=== PATIENT | female | born 1960 | race Caucasian/White ===

== ENCOUNTER 2024-06-29 12:25 | Inpatient (IN) | payer BC ==
[2024-06-29 15:24] LABS: Basophils # (A) 0.1 k/uL (0-0.2); Basophils % (A) 1 %; Eosinophils # (A) 0.1 k/uL (0-0.7); Eosinophils % (A) 1 %; HCT 42.2 % (34.0-46.0); HGB 14.2 gm/dL (11.4-16.0); Lymphocytes # (A) 3.6 k/uL (1.0-4.8); Lymphocytes % (A) 36 %; MCH 28.1 pg (25.0-35.0); MCHC 33.6 g/dL (31.0-37.0); MCV 83.6 fL (80.0-100.0); Mean Platelet Volume 6.7; Monocytes # (A) 0.4 k/uL (0-1.0); Monocytes % (A) 4 %; Neutrophils # (A) 5.7 k/uL (1.3-7.7); Neutrophils % (A) 57 %; Platelet Count 376 k/uL (150-450); RBC 5.05 m/uL (3.80-5.40); RDW 12.1 % (11.5-15.5); WBC 9.9 k/uL (3.8-10.6)
[2024-06-29 15:30] LABS: INR 0.9 (<1.2); Partial Thromboplastin Time 25.7 sec (22.0-30.0); Prothrombin Time 10.5 sec (10.0-12.5)
--- NOTE | 2024-06-29 15:30 | P.GSCN ---
History of Present Illness Consult date: 06/29/24 Reason for Consult: Coronary artery disease, evaluate for CABG Requesting physician: Pete Parker History of present illness: This is a 64-year-old female who follows outpatient with Dr. 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 She has a previous medical history of insulin-dependent diabetes, hyperlipidemia, previous COVID, lifelong non-smoker, and family history of premature coronary artery disease with father having CABG at 40 years old. Apparently she has had intermittent chest pressure for the last couple of months. She saw her warehouse analyst and, per the patient, was told that it was likely due to her changes in medications. Yesterday she also had some shortness of breath, she presented to [facility] for evaluation and treatment. Troponins were elevated and she was ruled in for non-STEMI. She did have an echocardiogram completed demonstrating low normal left ventricular systolic function with EF 50%, mild mitral and tricuspid regurgitation as well as inferobasal hypokinesis. She was recommended to go undergo heart catheterization which was completed today by Dr. Burroughs demonstrating proximal LAD stenosis 90%, proximal circumflex stenosis 70% with 90% stenosis after the OM1 and 100% stenosis after the OM 2, proximal RCA stenosis 80%, mid RCA stenosis 90%, distal RCA stenosis 100%. Due to these findings the patient was transferred to [facility] for cardiothoracic surgery consultation. Review of Systems Review of systems was completed and was negative except as noted - Cardiovascular Reports as per HPI, Reports chest pain, Reports shortness of breath Past Medical History Past Medical History: Coronary Artery Disease (CAD), Diabetes Mellitus, Hyperlipidemia Additional Past Medical History / Comment(s): COVID in the past, vaccinated History of Any Multi-Drug Resistant Organisms: None Reported Additional Past Surgical History / Comment(s): Colonoscopy Past Anesthesia/Blood Transfusion Reactions: No Reported Reaction Past Psychological History: No Psychological Hx Reported Smoking Status: Never smoker Past Alcohol Use History: None Reported Past Drug Use History: None Reported - Past Family History Father Family Medical History: Coronary Artery Disease (CAD) Additional Family Medical History / Comment(s): Father had CABG at 40 years old, from kidney failure Mother Family Medical History: Diabetes Mellitus Medications and Allergies Allergies Allergy/AdvReac Type Severity Reaction Status Date / Time Penicillins Allergy Rash/Hives Verified 06/29/24 14:01 Surgical - Exam Vital Signs Temp Pulse Resp BP Pulse Ox 98.4 F 71 16 117/68 95 06/29/24 13:57 06/29/24 13:57 06/29/24 13:57 06/29/24 13:57 06/29/24 13:57 CONSTITUTIONAL: Awake and alert, appears comfortable, cooperative, well- developed, well-nourished, no pain, no acute distress EYES: Pupils equal, round, reactive to light, normal ocular movement ENT: Moist mucous membranes without oral lesions present NECK: No masses, no bruits, trachea midline RESPIRATORY: Lungs sounds clear to auscultation bilaterally. Respirations even, nonlabored. Currently on room air. Strong cough. No chest wall deformities. No clubbing or cyanosis present CARDIOVASCULAR: S1, S2 present. Regular rate and rhythm, sinus rhythm on telemetry. Palpable peripheral pulses bilaterally. No edema present. No calf pain or tenderness noted. No significant lower extremity varicosities noted GASTROINTESTINAL: Abdomen soft, nontender, nondistended without masses or organomegaly noted. There is no rebound or guarding present. Active bowel sounds present 4 quadrants. GENITOURINARY: Deferred INTEGUMENTARY: Skin is warm and dry, right radial heart catheterization site clean without drainage NEUROLOGIC: Cranial nerves II through XII intact, normal coordination, no obvious motor or sensory deficits, speech is normal MUSKULOSKELETAL: Able to move all extremities, strength equal bilaterally, normal posture PSYCHIATRIC: Alert and oriented to person place and time, appropriate affect, intact judgment and insight CLINICAL FRAILTY SCORE 3 Results - Imaging Chest x-ray: image reviewed Additional studies: Heart catheterization, echocardiogram, chest x-ray completed at [facility] reviewed Assessment and Plan Assessment: Triple-vessel coronary artery disease, non-STEMI this admission Chest pain, shortness of breath secondary to above History of insulin-dependent diabetes Hyperlipidemia Lifelong non-smoker Family history of premature coronary artery disease, father had CABG at 40 years old Plan: The patient was seen and examined sitting up in bed on 6 N. was present. Currently denies any chest pain or shortness of breath. Chart/diagnostics reviewed. The usual perioperative course of open-heart surgery was discussed in detail with the patient and her , risks and benefits were reviewed, all questions were answered. The patient is willing to consider surgery. Preoperative testing will be initiated, once completed we will calculate STS risk score and discuss with the patient. The case will be discussed in great detail with Dr. Samayoa. Recommend maximizing medical therapy with aspirin, statin, beta-marcia therapy. Increase activity as tolerated, will perform 5 m walk test. Discussed the need for diabetes and cholesterol control as part of her cardiac risk factors. More recommendations to follow once Dr. Samayoa has had the opportunity to review her heart catheterization films. Medical management of other comorbidities per internal medicine, cardiology. Thank you Dr. Parker for this consult, we will continue to follow along with you and make further recommendations as appropriate. I have personally seen and examined the patient, performed the documentation and the assessment and plan as written. Number of minutes spent on the visit: 30. VERONA FrancoisC
[2024-06-29] MEDS: HEPARIN SOD,PORK IN 0.45% NACL 25,000 UNIT in 0.45% NACL 1 250ML.BAG IV SCH (15:51)
[2024-06-29] MEDS ORDERED: DEXTROSE 50% SYRINGE 50 ML IVP PRN ×2 (16:04)
--- NOTE | 2024-06-29 17:18 | US ---
EXAMINATION TYPE: US vein mapping BILAT DATE OF EXAM: 06/29/2024 5:00 PM COMPARISON: NONE CLINICAL INDICATION: Female, 64 years old with history of preop cardiac surgery; , Preop- Cardiac Yahaira branden TECHNIQUE: Grayscale and color Doppler imaging of the lower extremity venous system. SIDE PERFORMED: Bilateral FINDINGS: DUPLEX FINDINGS: Greater Saphenous: Color flow seen Measurements in mm: Right Greater Saphenous: Groin: 7.0x6.2mm High Thigh: 4.0x3.5mm Mid Thigh: 4.4x3.1mm Above Knee: 3.0x3.3mm Knee: 4.8x3.7mm Below Knee: 4.1x3.1mm Mid Calf: 2.4x2.5mm At Ankle: 2.3x1.6mm Left Greater Saphenous: Groin: 8.2x5.7mm High Thigh: 7.0x5.5mm Mid Thigh: 5.2x3.6mm Above Knee: 3.6x2.6mm Knee: 3.8x3.3mm Below Knee: 2.7x2.7mm Mid Calf: 2.5x2.2mm At Ankle: 2.4x1.7mm IMPRESSION: 1. No evidence for occlusion. 2. GSV measurements listed above. 3. Performing surgeon to determine viability as conduit. [facility], , 06/29/2024 5:16 PM
--- NOTE | 2024-06-29 17:18 | US ---
EXAMINATION TYPE: Pre-Operative Non-Invasive Evaluation of the hand for Potential Radial Artery Harvcabrera walker, Measurements only DATE OF EXAM: 06/29/2024 5:00 PM CLINICAL INDICATION: Female, 64 years old with history of measurements only; , Preop- Cardiac Surgery TECHNIQUE:Grayscale and color Doppler imaging of the radial artery(s) SIDE PERFORMED: Left FINDINGS: Dominant hand: Left Duplex Findings: Radial Artery: Color flow seen Measurements in mm, transverse view: Left Radial: Proximal: 2.5 x 2.5 mm Mid: 1.9 x 1.9 mm Distal: 2.0 x 2.0 mm IMPRESSION: No evidence for occlusion. Measurements as described above. [facility], , 06/29/2024 5:16 PM
--- NOTE | 2024-06-29 17:19 | US ---
EXAMINATION TYPE: US carotid duplex BILAT DATE OF EXAM: 06/29/2024 COMPARISON: NONE CLINICAL INDICATION: Female, 64 years old with history of preop cardiac surgery; Hyperlipidemia, diab etes Additional History: .... TECHNIQUE: Grayscale, color Doppler and spectral Doppler evaluation of the bilateral carotid systems and vertebral arteries. Indirect Doppler criteria was utilized. FINDINGS: EXAM MEASUREMENTS: RIGHT: Peak Systolic Velocity (PSV) cm/sec ----- Right CCA: 72.1 ----- Right ICA: 69.7 ----- Right ECA: 96.9 ICA/CCA ratio: 1.0 RIGHT: End Diastole cm/sec ----- Right CCA: 20.6 ----- Right ICA: 16.5 ----- Right ECA: 10.2 LEFT: Peak Systolic Velocity (PSV) cm/sec ----- Left CCA: 99.1 ----- Left ICA: 90.8 ----- Left ECA: 83.1 ICA/CCA ratio: 0.9 LEFT: End Diastole cm/sec ----- Left CCA: 21.5 ----- Left ICA: 28.1 ----- Left ECA: 12.8 VERTEBRALS (direction of flow): Right Vertebral: Antegrade Left Vertebral: Antegrade Rhythm: Normal TRIGONOMETRY TEACHER NOTES: No elevated velocities. Plaque seen within bilateral bulbs. Color Doppler imaging shows patency with blood flow throughout the carotid artery. IMPRESSION: Right: No hemodynamically significant stenosis. Left: No hemodynamically significant stenosis. Criteria for Assigning % of Stenosis / Diameter reduction (Estimation based on the indirect measurements of the internal carotid artery velocities (ICA PSV). 1. Normal (no stenosis)=ICA PSV < 125 cm/s: ratio < 2.0: ICA EDV<40 cm/s. 2. Less than 50% stenosis=ICA PSV < 125 cm/s: ratio < 2.0: ICA EDV<40 cm/s. 3. 50 to 69% stenosis=ICA PSV of 125 to 230 cm/s: ration 2.0 ? 4.0: ICA EDV 40-100 cm/s. 4. Greater than 70% stenosis to near occlusion= ICA PSV > 230 cm/s: ratio > 4.0: ICA EDV > 100 cm/s. 5. Near occlusion= ICA PSV velocities may be low or undetectable: variable ratio and ICA EDV. 6. Total occlusion=unable to detect flow. [facility], , 06/29/2024 5:17 PM
[2024-06-29] MEDS: INSULIN ASPART (NovoLOG) 100 UNIT/ML VIAL SQ SCH (17:31)
[2024-06-29 17:32] LABS: Glucose,Whole Blood 126 mg/dL (70-110)
[2024-06-29 20:15] LABS: Glucose,Whole Blood 126 mg/dL (70-110)
[2024-06-29 20:54] LABS: Hepatitis A Antibody IgM Nonreactive (Nonreactive); Hepatitis B Core IgM Nonreactive (Nonreactive); Hepatitis B Surface Antigen Nonreactive (Nonreactive); Hepatitis C IgG Antibody Nonreactive (Nonreactive)
[2024-06-29] MEDS: METOPROLOL TARTRATE 25 MG TAB PO SCH (20:58)
[2024-06-29] MEDS: ATORVASTATIN 80 MG TAB PO SCH (20:58)
[2024-06-29] MEDS ORDERED: ATORVASTATIN 40 MG TAB PO SCH (21:00)
--- NOTE | 2024-06-29 22:05 | CT ---
EXAMINATION TYPE: CT chest wo con DATE OF EXAM: 06/29/2024 9:51 PM COMPARISON: None CLINICAL INDICATION: Female, 64 years old with history of eval aorta for clampability; PHH, Eval aort a for clampability. Surgical planning. TECHNIQUE: Multiple axial images were obtained through the chest. Sagittal and coronal reformats were created for review. MIP was performed on a separate workstation. Contrast used: mL of (None if empty) Oral contrast used: (None if empty) CT DLP: 320.3 mGycm, Automated exposure control for dose reduction was used. FINDINGS: LUNGS/ PLEURA: No focal consolidation, pneumothorax or pleural effusion. AIRWAY: Patent and unremarkable. HEART: Size within normal limits minimal coronary artery calcifications. MEDIASTINUM: No gross evidence of adenopathy. VASCULATURE: No aortic aneurysm. Minimal calcified plaque is noted on the inferior aspect of aortic arch. MUSCULOSKELETAL: Mild disc degeneration changes are present throughout the thoracolumbar spine second peter to osteophyte formation and facet joint arthropathy. SOFT TISSUES/LYMPH NODES: Unremarkable. LOWER NECK: No significant findings. UPPER ABDOMEN: No significant findings. IMPRESSION: Minimal aortic arch calcification/plaque noted. No acute thoracic process. No evidence fo r aneurysm no evidence for intracranial hematoma. [facility], , 06/29/2024 10:03 PM
[2024-06-30] MEDS: HEPARIN SODIUM 1,000 UN/ML (10ML VL) IV PRN (01:01)
[2024-06-30 03:06] LABS: Chol/HDL Ratio 6.15 Ratio; LDL Cholesterol,Calculated 124.7 mg/dL (0.0-131.0)
[2024-06-30 05:47] LABS: Glucose,Whole Blood 153 mg/dL (70-110)
[2024-06-30 07:44] LABS: Partial Thromboplastin Time 47.4 sec (22.0-30.0); Prothrombin Time 10.9 sec (10.0-12.5)
[2024-06-30] MEDS: ASPIRIN 81 MG PO SCH (08:35)
[2024-06-30] MEDS: ISOSORBIDE MONONITRATE ER 30 MG TAB.ER.24H PO SCH (08:35)
--- NOTE | 2024-06-30 10:35 | P.PN ---
Subjective Progress Note Date: 06/30/24 Principal diagnosis: Triple-vessel coronary artery disease, non-STEMI this admission. History of insulin-dependent diabetes uncontrolled with hyperglycemia, hyperlipidemia, lifelong non-smoker, family history of premature coronary artery disease, father had CABG at 40 years old The patient was seen and examined this morning with Dr. Samayoa sitting up in bed on 6 N. in no acute distress. Remains in sinus rhythm, hemodynamically stable. Denies any chest pain or shortness of breath at this time. We did discuss our recommendation for open heart surgery, timing to be determined. All patient's questions were answered. STS risk score was discussed with patient, she is con sidered to be low risk. No other new concerns. Objective - Vital Signs Vital signs: Vital Signs Temp 98.8 F 06/30/24 07:03 Pulse 64 06/30/24 07:03 Resp 16 06/30/24 07:03 BP 129/77 06/30/24 07:03 Pulse Ox 94 L 06/30/24 07:03 FiO2 Intake & Output 06/29/24 06/30/24 06/30/24 18:59 06:59 18:59 Intake Total 118 84.753 118 Balance 118 84.753 118 Weight 78.471 kg Intake: Intake, IV Titration 84.753 Amount Heparin Sod,Pork in 0.45% 84.753 NaCl 25,000 unit In 0.45 % NaCl 1 250ml.bag @ 12 UNITS/KG/HR 9.417 mls/hr IV .Q24H TAYLA Rx#: [id number] Oral 118 118 Other: # Voids 2 - Exam CONSTITUTIONAL: Appears comfortable, cooperative, no acute distress RESPIRATORY: Lungs sounds diminished bilaterally. Respirations even, nonlabored. Currently on room air with oxygen saturation 98%. Able to achieve 1750 mL on incentive spirometry. Strong cough. CARDIOVASCULAR: S1, S2 present. Regular rate and rhythm, sinus rhythm on telemetry. Palpable peripheral pulses bilaterally. No edema present. No calf pain or tenderness noted GASTROINTESTINAL: Abdomen soft, nontender, nondistended. Active bowel sounds present 4 quadrants. Tolerating diet GENITOURINARY: Continues to void INTEGUMENTARY: Skin is warm and dry NEUROLOGIC: Cranial nerves II through XII intact MUSKULOSKELETAL: Able to move all extremities, strength equal bilaterally, gait normal PSYCHIATRIC: Alert and oriented to person place and time, appropriate affect, intact judgment and insight - Allied health notes Allied health notes reviewed: nursing - Labs CBC & Chem 7: 06/29/24 15:04 Labs: Abnormal Lab Results - Last 24 Hours (Table) 06/29/24 06/29/24 06/29/24 Range/Units 15:04 15:04 17:30 APTT (22.0-30.0) sec POC Glucose (mg/dL) 126 H (70-110) mg/dL Hemoglobin A1c 9.1 H (<=6.0) % Triglycerides 239.00 H (0.00-149.00) mg/dL Cholesterol 206.00 H (0.00-200.00) mg/dL VLDL Cholesterol, Calc 47.80 H (5.00-40.00) mg/dL HDL Cholesterol 33.50 L (40.00-60.00) mg/dL 06/29/24 06/29/24 06/29/24 Range/Units 20:14 23:38 23:38 APTT 33.0 H (22.0-30.0) sec POC Glucose (mg/dL) 126 H (70-110) mg/dL Hemoglobin A1c 9.8 H (<=6.0) % Triglycerides (0.00-149.00) mg/dL Cholesterol (0.00-200.00) mg/dL VLDL Cholesterol, Calc (5.00-40.00) mg/dL HDL Cholesterol (40.00-60.00) mg/dL 06/30/24 06/30/24 Range/Units 05:45 06:55 APTT 47.4 H (22.0-30.0) sec POC Glucose (mg/dL) 153 H (70-110) mg/dL Hemoglobin A1c (<=6.0) % Triglycerides (0.00-149.00) mg/dL Cholesterol (0.00-200.00) mg/dL VLDL Cholesterol, Calc (5.00-40.00) mg/dL HDL Cholesterol (40.00-60.00) mg/dL - Imaging and Cardiology CT scan - chest: report reviewed, image reviewed Carotid Dopplers, bedside spirometry, radial artery and lower extremity vein mapping reviewed Assessment and Plan Assessment: Triple-vessel coronary artery disease, non-STEMI this admission Chest pain, shortness of breath secondary to above History of insulin-dependent diabetes with uncontrolled hyperglycemia, hemoglob in A1c 9.8% Hyperlipidemia, cholesterol 206, LDL 124, triglycerides 239 Lifelong non-smoker, preoperative FEV1 90% of predicted Family history of premature coronary artery disease, father had CABG at 40 years old Plan: Continue to maximize medical therapy with aspirin, statin, beta-marcia Increase activity as tolerated Our recommendations are for CABG, timing to be determined Patient needs better control over her blood sugars Reinforce preoperative teaching Medical management of other comorbidities per internal medicine, cardiology More recommendations to follow
[2024-06-30] MEDS ORDERED: ATORVASTATIN 80 MG TAB PO SCH (11:30)
[2024-06-30] MEDS ORDERED: NON FORMULARY DRUG (Aspirin Ec 81 MG Tablet) PO SCH (11:30)
--- NOTE | 2024-06-30 11:35 | CA ---
Transthoracic Echo Report Name: BOBBY CONSTANTINO Age: 64 Gender: F : 1960 Exam Date: 06/30/2024 11:00 Exam Location: [facility] Ht (in): 64 Wt (lb): 173 Ordering Physician: Elis Nguyễn Attending/Referring Phys: [id number], Gopi Folder Inspector Alem Gutierrez RDCS Procedure CPT: Indications: eval valves, LV Cardiac Hx: Technical Quality: Good Contrast 1: Total Dose (mL): Contrast 2: Total Dose (mL): MEASUREMENTS (Male / Female) Normal Values 2D ECHO LV Diastolic Diameter PLAX 5.0 cm 4.2 - 5.9 / 3.9 - 5.3 cm LV Systolic Diameter PLAX 3.3 cm IVS Diastolic Thickness 0.7 cm 0.6 - 1.0 / 0.6 - 0.9 cm LVPW Diastolic Thickness 0.9 cm 0.6 - 1.0 / 0.6 - 0.9 cm LV Relative Wall Thickness 0.3 LVOT Diameter 1.9 cm LV Diastolic Volume MOD BP 111.7 cm??? 67 - 155 / 56 - 104 cm??? LV Systolic Volume MOD BP 47.8 cm??? 22 - 58 / 19 - 49 cm??? LV Ejection Fraction MOD BP 57.2 % >= 55 % LV Cardiac Index MOD BP 2111.7 cm???/min???m??? LV Diastolic Volume MOD 4C 114.5 cm??? LV Systolic Volume MOD 4C 48.8 cm??? LV Ejection Fraction MOD 4C 57.4 % LV Cardiac Index MOD 4C 2168.5 cm???/min???m??? LV Diastolic Length 4C 7.8 cm LV Systolic Length 4C 7.4 cm LV Diastolic Volume MOD 2C 106.3 cm??? LV Systolic Volume MOD 2C 40.7 cm??? LV Ejection Fraction MOD 2C 61.7 % LV Cardiac Index MOD 2C 2167.2 cm???/min???m??? LV Diastolic Length 2C 7.6 cm LV Systolic Length 2C 6.4 cm LA Volume 48.3 cm??? 18 - 58 / 22 - 52 cm??? LA Volume Index 25.3 cm???/m??? 16 - 28 cm???/m??? Ascending Aorta Diameter 3.2 cm DOPPLER AV Peak Velocity 147.6 cm/s AV Peak Gradient 8.7 mmHg AV Mean Velocity 97.6 cm/s AV Mean Gradient 4.3 mmHg AV Velocity Time Integral 30.2 cm LVOT Peak Velocity 123.7 cm/s LVOT Peak Gradient 6.1 mmHg LVOT Velocity Time Integral 23.0 cm LVOT Stroke Volume 63.2 cm??? LVOT Stroke Volume Index 34.3 ml/m??? LVOT Cardiac Index 2086.5 cm???/min???m??? AV Area Cont Eq vti 2.1 cm??? AV Area Cont Eq pk 2.3 cm??? MV Peak Velocity 112.6 cm/s MV Peak Gradient 5.1 mmHg MV Mean Velocity 72.2 cm/s MV Mean Gradient 2.3 mmHg MV Velocity Time Integral 38.7 cm MV Area PHT 3.3 cm??? Mitral E Point Velocity 77.8 cm/s Mitral A Point Velocity 93.9 cm/s Mitral E to A Ratio 0.8 MV Deceleration Time 227.1 ms PV Peak Velocity 85.5 cm/s PV Peak Gradient 2.9 mmHg FINDINGS Left Ventricle Left ventricular ejection fraction is estimated at 55-60 %. Mildly increased left ventricular diastolic volume. Left ventricular wall thickness normal. No obvious regional wall motion abnormalities. Right Ventricle Normal right ventricular size and function. Unable to estimate the right ventricular systolic pressure. Right Atrium Normal right atrial size. Left Atrium Normal left atrial size. Mitral Valve Structurally normal mitral valve. No evidence for mitral valve prolapse. No mitral stenosis. Trace to mild mitral regurgitation. Aortic Valve Trileaflet aortic valve. No aortic valve stenosis or regurgitation. Tricuspid Valve Structurally normal tricuspid valve. No tricuspid stenosis, regurgitation or prolapse. Pulmonic Valve Structurally normal pulmonic valve. No pulmonic stenosis. No pulmonic regurgitation. Pericardium No pericardial effusion. Aorta Normal size aortic root and proximal ascending aorta. CONCLUSIONS Normal LV function Previewed by: Dr. Joseph Ozuna MD (Electronically Signed) Final Date: 30 June 2024 11:34
[2024-06-30 12:16] LABS: Glucose,Whole Blood 132 mg/dL (70-110)
--- NOTE | 2024-06-30 12:29 | P.PN ---
Subjective Progress Note Date: 06/30/24 This is a 64-year-old female patient with past medical history of insulin- dependent diabetes, hyperlipidemia, family history of premature coronary artery disease with father having CABG at 40 years of age. Patient initially presented to [facility] with intermittent chest pain for couple of months. She subsequently developed shortness of breath and presented to [facility] for evaluation. Patient was diagnosed with a NSTEMI. She had an echocardiogram that revealed EF of 50%, mild mitral regurgitation and mild tricuspid regurgitation, inferobasal hypokinesis. She underwent a cardiac catheterization with Dr. Burroughs which revealed proximal LAD stenosis of 90%, proximal circumflex stenosis 70 to 90% after the OM1 and 100% stenosis after the OM 2, proximal RCA stenosis 80%, mid RCA stenosis 90%, distal RCA stenosis 100%. Patient was then transferred to [facility] in order to obtain cardiothoracic surgery consultation. Patient has been seen by the cardiothora cic team. No complaints of chest pain this morning. Patient has been maintained on a heparin drip. Blood pressure 129/77, heart rate 64, pulse ox 94% on room air. Hemoglobin A1c 9.8, triglycerides 239, cholesterol 206, LDL 124, TSH 1.9. Stool for occult blood negative. Hepatitis panel negative. Physical examination: Gen: This is a 64-year-old female in no acute distress VS: reviewed HEENT: Head is atraumatic, normocephalic. Pupils equal, round. Sclerae is anicteric. NECK: Supple. No JVD. LUNGS: Clear to auscultation. No wheezes or rhonchi. No intercostal retractions. HEART: Regular rate and rhythm. No murmur. ABDOMEN: Soft No tenderness. EXTREMITIES: No pedal edema. No calf tenderness. NEUROLOGICAL: Patient is awake, alert and oriented x3. Assessment: NSTEMI Triple-vessel coronary artery disease Insulin-dependent diabetes mellitus Hyperlipidemia Family history of premature coronary artery disease Plan: Continue current cardiac medications: Aspirin 81 mg daily, atorvastatin 80 mg at bedtime, Lopressor 25 mg twice daily. Continue patient on heparin drip Start patient on Imdur 30 mg daily Cardiothoracic team evaluation Further recommendations to follow based upon clinical course Nurse practitioner note has been reviewed, I agree with documented findings and plan of care. Patient was seen and examined. Objective - Vital Signs Vital signs: Vital Signs Temp 98.8 F 06/30/24 07:03 Pulse 64 06/30/24 07:03 Resp 16 06/30/24 07:03 BP 129/77 06/30/24 07:03 Pulse Ox 94 L 06/30/24 07:03 FiO2 Intake & Output 06/29/24 06/30/24 06/30/24 18:59 06:59 18:59 Intake Total 118 84.753 Balance 118 84.753 Weight 78.471 kg Intake: Intake, IV Titration 84.753 Amount Heparin Sod,Pork in 0.45% 84.753 NaCl 25,000 unit In 0.45 % NaCl 1 250ml.bag @ 12 UNITS/KG/HR 9.417 mls/hr IV .Q24H TAYLA Rx#: [id number] Oral 118 Other: # Voids 2 - Labs CBC & Chem 7: 06/29/24 15:04 Labs: Abnormal Lab Results - Last 24 Hours (Table) 06/29/24 06/29/24 06/29/24 Range/Units 15:04 15:04 17:30 APTT (22.0-30.0) sec POC Glucose (mg/dL) 126 H (70-110) mg/dL Hemoglobin A1c 9.1 H (<=6.0) % Triglycerides 239.00 H (0.00-149.00) mg/dL Cholesterol 206.00 H (0.00-200.00) mg/dL VLDL Cholesterol, Calc 47.80 H (5.00-40.00) mg/dL HDL Cholesterol 33.50 L (40.00-60.00) mg/dL 06/29/24 06/29/24 06/30/24 Range/Units 20:14 23:38 05:45 APTT 33.0 H (22.0-30.0) sec POC Glucose (mg/dL) 126 H 153 H (70-110) mg/dL Hemoglobin A1c (<=6.0) % Triglycerides (0.00-149.00) mg/dL Cholesterol (0.00-200.00) mg/dL VLDL Cholesterol, Calc (5.00-40.00) mg/dL HDL Cholesterol (40.00-60.00) mg/dL 06/30/24 Range/Units 06:55 APTT 47.4 H (22.0-30.0) sec POC Glucose (mg/dL) (70-110) mg/dL Hemoglobin A1c (<=6.0) % Triglycerides (0.00-149.00) mg/dL Cholesterol (0.00-200.00) mg/dL VLDL Cholesterol, Calc (5.00-40.00) mg/dL HDL Cholesterol (40.00-60.00) mg/dL
[2024-06-30 14:59] LABS: Basophils # (A) 0.04 X 10*3/uL (0.00-0.10); Basophils % (A) 0.4 %; Eosinophils # (A) 0.16 X 10*3/uL (0.04-0.35); Eosinophils % (A) 1.6 %; HCT 43.6 % (37.2-46.3); HGB 14.4 g/dL (12.0-15.0); Lymphocytes # (A) 3.61 X 10*3/uL (0.90-5.00); Lymphocytes % (A) 37.1 %; MCH 28.1 pg (27.0-32.0); MCV 85.2 FL (80.0-97.0); Mean Platelet Volume 9.9 FL (9.5-12.2); Monocytes # (A) 0.52 X 10*3/uL (0.20-1.00); Monocytes % (A) 5.3 %; NRBC Per 100 WBC 0 X 10*3/uL (0.00-0.01); Neutrophils # (A) 5.36 X 10*3/uL (1.80-7.70); Neutrophils % (A) 55.3 %; Platelet Count 403 X 10*3/uL (140-440); RBC 5.12 X 10*6/uL (4.10-5.20); RDW 12.4 % (11.5-14.5); WBC 9.72 X 10*3/uL (4.50-10.00)
[2024-06-30 18:08] LABS: Glucose,Whole Blood 187 mg/dL (70-110)
[2024-06-30 19:58] LABS: Glucose,Whole Blood 186 mg/dL (70-110)
[2024-06-30] MEDS: MUPIROCIN 2% OINT 22 GM TUBE NASAL SCH (20:01)
[2024-06-30] MEDS: INSULIN DETEMIR (LEVEMIR) 100 UNIT/ML SYR SQ SCH (21:55)
--- NOTE | 2024-07-01 06:10 | PN ---
PROGRESS NOTE DATE OF SERVICE: 06/30/2024 CHIEF COMPLAINT: NSTEMI. HISTORY OF PRESENT ILLNESS: This lady is doing well and stable. No pain. She is being scheduled for coronary artery bypass graft. PHYSICAL EXAMINATION: CHEST: Clear. CARDIAC: Normal. ABDOMEN: Soft, nontender. IMPRESSION: 1. Non ST elevation myocardial infarction. 2. Diabetes. PLAN: Await surgery. MMODL / IJN: [id number] /
[2024-07-01 06:16] LABS: Glucose,Whole Blood 137 mg/dL (70-110)
--- NOTE | 2024-07-01 08:54 | P.PN ---
Subjective Progress Note Date: 07/01/24 Principal diagnosis: Triple-vessel coronary artery disease, non-STEMI this admission. History of insulin-dependent diabetes uncontrolled with hyperglycemia, hyperlipidemia, lifelong non-smoker, family history of premature coronary artery disease, father had CABG at 40 years old The patient was seen and examined this morning sitting up in bed on 6 N. in no acute distress. Remains in sinus rhythm, hemodynamically stable. Denies any chest pain or shortness of breath at this time. Our plan is for off-pump CABG by Dr. Samayoa on July 04, this was discussed with the patient and she is in agreement. No other new concerns. Objective - Vital Signs Vital signs: Vital Signs Temp 98.3 F 07/01/24 07:08 Pulse 62 07/01/24 07:08 Resp 16 07/01/24 07:08 BP 128/68 07/01/24 07:08 Pulse Ox 97 07/01/24 07:08 FiO2 Intake & Output 06/30/24 07/01/24 07/01/24 18:59 06:59 18:59 Intake Total 252.395 189.692 Balance 252.395 189.692 Weight 78.471 kg Intake: Intake, IV Titration 134.395 189.692 Amount Heparin Sod,Pork in 0.45% 134.395 189.692 NaCl 25,000 unit In 0.45 % NaCl 1 250ml.bag @ 12 UNITS/KG/HR 9.417 mls/hr IV .Q24H [facility] Rx#: [id number] Oral 118 Other: # Voids 4 3 - Exam CONSTITUTIONAL: Appears comfortable, cooperative, no acute distress RESPIRATORY: Lungs sounds diminished bilaterally. Respirations even, nonlabored. Currently on room air with oxygen saturation 97%. Able to achieve 1750 mL on incentive spirometry. Strong cough. CARDIOVASCULAR: S1, S2 present. Regular rate and rhythm, sinus rhythm on telemetry. Palpable peripheral pulses bilaterally. No edema present. No calf pain or tenderness noted GASTROINTESTINAL: Abdomen soft, nontender, nondistended. Active bowel sounds present 4 quadrants. Tolerating diet GENITOURINARY: Continues to void INTEGUMENTARY: Skin is warm and dry NEUROLOGIC: Cranial nerves II through XII intact MUSKULOSKELETAL: Able to move all extremities, strength equal bilaterally, gait normal PSYCHIATRIC: Alert and oriented to person place and time, appropriate affect, intact judgment and insight - Allied health notes Allied health notes reviewed: nursing - Labs CBC & Chem 7: 06/30/24 06:55 Labs: Abnormal Lab Results - Last 24 Hours (Table) 06/29/24 06/30/24 06/30/24 Range/Units 23:38 12:12 18:07 APTT (22.0-30.0) sec POC Glucose (mg/dL) 132 H 187 H (70-110) mg/dL Hemoglobin A1c 9.8 H (<=6.0) % 06/30/24 07/01/24 07/01/24 Range/Units 19:57 05:22 06:14 APTT 46.1 H (22.0-30.0) sec POC Glucose (mg/dL) 186 H 137 H (70-110) mg/dL Hemoglobin A1c (<=6.0) % Assessment and Plan Assessment: Triple-vessel coronary artery disease, non-STEMI this admission Chest pain, shortness of breath secondary to above History of insulin-dependent diabetes with uncontrolled hyperglycemia, hemoglobin A1c 9.8% Hyperlipidemia, cholesterol 206, LDL 124, triglycerides 239 Lifelong non-smoker, preoperative FEV1 90% of predicted Family history of premature coronary artery disease, father had CABG at 40 years old Plan: Continue to maximize medical therapy with aspirin, statin, beta-marcia Increase activity as tolerated Our plan is for off-pump myocardial revascularization with YIN, endoscopic vein harvest, ligation of the left atrial appendage by Dr. Samayoa on Thursday, July 04, 2024 5 m walk test was completed by cardiac rehab, #1 5.98 seconds, #2 5.0 seconds, #3 4.21 seconds Patient needs better control over her blood sugars, Jardiance discontinued by us as she needs to be off for 3 days prior to surgery to prevent intra/postoperative hypoglycemia Reinforce preoperative teaching Medical management of other comorbidities per internal medicine, cardiology More recommendations to follow
[2024-07-01] MEDS ORDERED: NON FORMULARY DRUG (Empagliflozin [Jardiance] 10 MG Tablet) PO SCH (09:00)
--- NOTE | 2024-07-01 10:35 | P.PN ---
Subjective Progress Note Date: 07/01/24 This is a 64-year-old female patient with past medical history of insulin- dependent diabetes, hyperlipidemia, family history of premature coronary artery disease with father having CABG at 40 years of age. Patient initially presented to [facility] with intermittent chest pain for couple of months. She subsequently developed shortness of breath and presented to [facility] for evaluation. Patient was diagnosed with a NSTEMI. She had an echocardiogram that revealed EF of 50%, mild mitral regurgitation and mild tricuspid regurgitation, inferobasal hypokinesis. She underwent a cardiac catheterization with Dr. Burroughs which revealed proximal LAD stenosis of 90%, proximal circumflex stenosis 70 to 90% after the OM1 and 100% stenosis after the OM 2, proximal RCA stenosis 80%, mid RCA stenosis 90%, distal RCA stenosis 100%. Patient was then transferred to [facility] in order to obtain cardiothoracic surgery consultation. Patient has been seen by the cardiothora cic team. No complaints of chest pain this morning. Patient has been maintained on a heparin drip. Blood pressure 129/77, heart rate 64, pulse ox 94% on room air. Hemoglobin A1c 9.8, triglycerides 239, cholesterol 206, LDL 124, TSH 1.9. Stool for occult blood negative. Hepatitis panel negative. 07/01 Patient states that she is tentatively scheduled for CABG on Thursday. She denies having any chest pain or shortness of breath. She is maintained on heparin drip along with aspirin, statin, Imdur and Lopressor. Blood pressure 128/68, heart rate 62, pulse ox 97% on room air. Physical examination: Gen: This is a 64-year-old female in no acute distress VS: reviewed HEENT: Head is atraumatic, normocephalic. Pupils equal, round. Sclerae is anicteric. NECK: Supple. No JVD. LUNGS: Clear to auscultation. No wheezes or rhonchi. No intercostal retractions. HEART: Regular rate and rhythm. No murmur. ABDOMEN: Soft No tenderness. EXTREMITIES: No pedal edema. No calf tenderness. NEUROLOGICAL: Patient is awake, alert and oriented x3. Assessment: NSTEMI Triple-vessel coronary artery disease scheduled for CABG on 07/04 Insulin-dependent diabetes mellitus Hyperlipidemia Family history of premature coronary artery disease Plan: Continue current cardiac medications: Aspirin 81 mg daily, atorvastatin 80 mg at bedtime, Imdur 30 mg daily, Lopressor 25 mg twice daily. Continue patient on heparin drip Cardiothoracic team evaluation appreciated Further recommendations to follow based upon clinical course Nurse practitioner note has been reviewed, I agree with documented findings and plan of care. Patient was seen and examined. Objective - Vital Signs Vital signs: Vital Signs Temp 97.6 F 07/01/24 02:00 Pulse 76 07/01/24 02:00 Resp 17 07/01/24 02:00 BP 114/70 07/01/24 02:00 Pulse Ox 95 07/01/24 02:00 FiO2 Intake & Output 06/30/24 07/01/24 07/01/24 18:59 06:59 18:59 Intake Total 252.395 189.692 Balance 252.395 189.692 Weight 78.471 kg Intake: Intake, IV Titration 134.395 189.692 Amount Heparin Sod,Pork in 0.45% 134.395 189.692 NaCl 25,000 unit In 0.45 % NaCl 1 250ml.bag @ 12 UNITS/KG/HR 9.417 mls/hr IV .Q24H [facility] Rx#: [id number] Oral 118 Other: # Voids 4 3 - Labs CBC & Chem 7: 06/30/24 06:55 Labs: Abnormal Lab Results - Last 24 Hours (Table) 06/29/24 06/30/24 06/30/24 Range/Units 23:38 12:12 18:07 APTT (22.0-30.0) sec POC Glucose (mg/dL) 132 H 187 H (70-110) mg/dL Hemoglobin A1c 9.8 H (<=6.0) % 06/30/24 07/01/24 07/01/24 Range/Units 19:57 05:22 06:14 APTT 46.1 H (22.0-30.0) sec POC Glucose (mg/dL) 186 H 137 H (70-110) mg/dL Hemoglobin A1c (<=6.0) %
--- NOTE | 2024-07-01 12:01 | P.CNPUL ---
History of Present Illness Consult date: 07/01/24 Requesting physician: Cy Samayoa Reason for consult: other (Pre-op clearance, post-op ventilator/critical care management) Chief complaint: Chest pain History of present illness: This is a very pleasant 64-year-old female patient with a known history of hyperlipidemia, diabetes mellitus and strong family history of coronary artery disease as her father had coronary artery bypass surgery at 40 years old. She is a lifelong non-smoker. She had presented to [facility] and w as found to have a non-ST segment elevation myocardial infarction. She had a cardiac catheterization done there revealing significant triple-vessel coronary artery disease. She was transferred here on June 29, 2024 for cardiothoracic evaluation. The plan is for revascularization surgery on July 04, 2024. Echocardiogram revealed preserved left ventricular systolic function with an ejection fraction 55 to 60%. Carotid Dopplers revealed no significant stenosis bilaterally. CT scan of the chest revealed no significant thoracic abnormalities. She is seen today in consult on the regular medical floor. She is currently sitting up in bed. Awake and alert in no acute distress. Denies any chest discomfort. No shortness of breath, cough or congestion. No palpitations, dizziness or lightheadedness. She is maintaining good O2 saturation in the mid 90s on room air. She is afebrile. Hemodynamically stable. White count 9.7. Hemoglobin 14.4. Platelets 403. Glucose 186. She remains on a heparin drip. She has been educated regarding the use of the incentive spirometer. Review of Systems REVIEW OF SYSTEMS: CONSTITUTIONAL: Denies any recent significant weight loss or weight gain. EYES: Denies change in vision. EARS, NOSE, MOUTH, THROAT: Denies headaches, denies sore throat. CARDIOVASCULAR: Denies chest pain, palpitations or syncopal episodes. RESPIRATORY: Denies shortness of breath, cough, congestion or hemoptysis. GASTROINTESTINAL: Denies change in appetite, denies abdominal pain GENITOURINARY: Denies hematuria, denies infections. MUSKULOSKELETAL: Denies pain, denies swelling. INTEGUMENTARY: Denies rash, denies eczema. NEUROLOGICAL: Denies recent memory loss, no recent seizure activity. PSYCHIATRIC: Denies anxiety, denies depression. HEMATOLOGIC/LYMPHATIC: Denies anemia, denies enlarged lymph nodes. Past Medical History Past Medical History: Coronary Artery Disease (CAD), Diabetes Mellitus, Hyperlipidemia Additional Past Medical History / Comment(s): COVID in the past, vaccinated History of Any Multi-Drug Resistant Organisms: None Reported Past Surgical History: No Surgical Hx Reported Additional Past Surgical History / Comment(s): Colonoscopy Past Anesthesia/Blood Transfusion Reactions: No Reported Reaction Past Psychological History: No Psychological Hx Reported Smoking Status: Never smoker Past Alcohol Use History: None Reported Past Drug Use History: None Reported - Past Family History Father Family Medical History: Coronary Artery Disease (CAD) Additional Family Medical History / Comment(s): Father had CABG at 40 years old, from kidney failure Mother Family Medical History: Diabetes Mellitus Medications and Allergies Home Medications Medication Instructions Recorded Confirmed Type Aspirin EC [Ecotrin Low Dose] 81 mg PO DIRECTED 06/29/24 06/29/24 History Atorvastatin [Lipitor] 80 mg PO DIRECTED 06/29/24 06/29/24 History Cholecalciferol (Vitamin D3) 1,250 mcg PO SA 06/29/24 06/29/24 History [Decara (50,000 Iu)] Empagliflozin [Jardiance] 10 mg PO DAILY 06/29/24 06/29/24 History Insulin Glargine,Hum.rec.anlog 10 units SQ HS 06/29/24 06/29/24 History [Lantus Solostar Pen] Semaglutide [Ozempic] 0.25 mg SQ SA 06/29/24 06/29/24 History Allergies Allergy/AdvReac Type Severity Reaction Status Date / Time Penicillins Allergy Rash/Hives Verified 06/29/24 16:52 Physical Exam Vitals: Vital Signs Temp Pulse Pulse Resp BP Pulse Ox 07/01/24 07:08 98.3 F 62 16 128/68 97 07/01/24 02:00 97.6 F 76 17 114/70 95 06/30/24 19:24 68 24 06/30/24 19:23 98.3 F 68 24 102/64 95 06/30/24 14:37 97.8 F 75 16 106/64 96 Intake and Output 06/30/24 07/01/24 07/01/24 22:59 06:59 14:59 Intake Total 189.692 354 Balance 189.692 354 Intake: Intake, IV Titration 189.692 Amount Heparin Sod,Pork in 0.45% 189.692 NaCl 25,000 unit In 0.45 % NaCl 1 250ml.bag @ 12 UNITS/KG/HR 9.417 mls/hr IV .Q24H [facility] Rx#: [id number] Oral 354 Other: # Voids 2 3 GENERAL EXAM: Alert, very pleasant 64-year-old female, on room air, comfortable in no apparent distress. HEAD: Normocephalic. EYES: Normal reaction of pupils, equal size. NOSE: Clear with pink turbinates. THROAT: No erythema or exudates. NECK: No masses, no JVD. CHEST: No chest wall deformity. LUNGS: Equal air entry with no crackles, wheeze, rhonchi or dullness. CVS: S1 and S2 normal with no audible murmur, regular rhythm. ABDOMEN: No hepatosplenomegaly, normal bowel sounds, no guarding or rigidity. SPINE: No scoliosis or deformity SKIN: No rashes CENTRAL NERVOUS SYSTEM: No focal deficits, tone is normal in all 4 extremities. EXTREMITIES: There is no peripheral edema. No clubbing, no cyanosis. Peripheral pulses are intact. Results - Laboratory Findings CBC and BMP: 06/30/24 06:55 PT/INR, D-dimer PT 10.9 sec (10.0-12.5) 06/30/24 06:55 INR 1.0 (<1.2) 06/30/24 06:55 Abnormal lab findings: Abnormal Labs 06/29/24 06/29/24 06/29/24 15:04 15:04 17:30 APTT POC Glucose (mg/dL) 126 H Hemoglobin A1c 9.1 H Triglycerides 239.00 H Cholesterol 206.00 H VLDL Cholesterol, Calc 47.80 H HDL Cholesterol 33.50 L 06/29/24 06/29/24 06/29/24 20:14 23:38 23:38 APTT 33.0 H POC Glucose (mg/dL) 126 H Hemoglobin A1c 9.8 H Triglycerides Cholesterol VLDL Cholesterol, Calc HDL Cholesterol 06/30/24 06/30/24 06/30/24 05:45 06:55 12:12 APTT 47.4 H POC Glucose (mg/dL) 153 H 132 H Hemoglobin A1c Triglycerides Cholesterol VLDL Cholesterol, Calc HDL Cholesterol 06/30/24 06/30/24 07/01/24 18:07 19:57 05:22 APTT 46.1 H POC Glucose (mg/dL) 187 H 186 H Hemoglobin A1c Triglycerides Cholesterol VLDL Cholesterol, Calc HDL Cholesterol 07/01/24 06:14 APTT POC Glucose (mg/dL) 137 H Hemoglobin A1c Triglycerides Cholesterol VLDL Cholesterol, Calc HDL Cholesterol - Diagnostic Findings Chest x-ray: image reviewed CT scan - chest: image reviewed Assessment and Plan Assessment: Acute non-ST elevation myocardial infarction and found to have significant triple-vessel coronary artery disease. Plan is for revascularization on 07/04/2024 Family history of early coronary artery disease with her father having bypass at the age of 40 Diabetes mellitus Hyperlipidemia Lifelong non-smoker Plan: The patient was seen and evaluated Imaging, labs and medications reviewed Currently stable and on room air Remains on a heparin drip Working with the incentive spirometer We will continue to follow and make further recommendations based on her clinical status I have personally seen and examined the patient, performed the documentation and the assessment and plan as written. Number of minutes spent on the visit: 20 Dictation was produced using evly dictation software. Please excuse any grammatical, word or spelling errors. Time with Patient: Greater than 30
[2024-07-01 12:10] LABS: Glucose,Whole Blood 161 mg/dL (70-110)
[2024-07-01 17:48] LABS: Glucose,Whole Blood 159 mg/dL (70-110)
[2024-07-01 20:01] LABS: Glucose,Whole Blood 153 mg/dL (70-110)
[2024-07-02 05:35] LABS: Glucose,Whole Blood 154 mg/dL (70-110)
--- NOTE | 2024-07-02 07:59 | P.PN ---
Subjective Progress Note Date: 07/02/24 Principal diagnosis: Triple-vessel coronary artery disease, non-STEMI this admission. History of insulin-dependent diabetes uncontrolled with hyperglycemia, hyperlipidemia, lifelong non-smoker, family history of premature coronary artery disease, father had CABG at 40 years old The patient was seen and examined this morning sitting up in bed on 6 N. in no acute distress. Remains in sinus rhythm, hemodynamically stable. Denies any chest pain or shortness of breath at this time. Our plan is for off-pump CABG by Dr. Samayoa on July 04, this was discussed with the patient and she is in agreement. States she has been ambulatory without difficulty. No other new concerns. Objective - Vital Signs Vital signs: Vital Signs Temp 97.4 F L 07/02/24 01:30 Pulse 70 07/02/24 01:30 Resp 18 07/02/24 01:30 BP 116/73 07/02/24 01:30 Pulse Ox 98 07/02/24 01:30 FiO2 Intake & Output 07/01/24 07/02/24 07/02/24 18:59 06:59 18:59 Intake Total 414.308 151.973 Balance 414.308 151.973 Weight 75.9 kg Intake: Intake, IV Titration 60.308 151.973 Amount Heparin Sod,Pork in 0.45% 60.308 151.973 NaCl 25,000 unit In 0.45 % NaCl 1 250ml.bag @ 12 UNITS/KG/HR 9.417 mls/hr IV .Q24H [facility] Rx#: [id number] Oral 354 Other: Voiding Method Toilet # Voids 5 5 # Bowel Movements 1 2 - Exam CONSTITUTIONAL: Appears comfortable, cooperative, no acute distress RESPIRATORY: Lungs sounds diminished bilaterally. Respirations even, nonlabored. Currently on room air with oxygen saturation 98%. Able to achieve 1500 mL on incentive spirometry. Strong cough. CARDIOVASCULAR: S1, S2 present. Regular rate and rhythm, sinus rhythm on telemetry. Palpable peripheral pulses bilaterally. No edema present. No calf pain or tenderness noted GASTROINTESTINAL: Abdomen soft, nontender, nondistended. Active bowel sounds present 4 quadrants. Tolerating diet GENITOURINARY: Continues to void INTEGUMENTARY: Skin is warm and dry NEUROLOGIC: Cranial nerves II through XII intact MUSKULOSKELETAL: Able to move all extremities, strength equal bilaterally, gait normal PSYCHIATRIC: Alert and oriented to person place and time, appropriate affect, intact judgment and insight - Allied health notes Allied health notes reviewed: nursing - Labs CBC & Chem 7: 06/30/24 06:55 Labs: Abnormal Lab Results - Last 24 Hours (Table) 07/01/24 07/01/24 07/01/24 Range/Units 12:09 17:47 19:56 APTT (22.0-30.0) sec POC Glucose (mg/dL) 161 H 159 H 153 H (70-110) mg/dL 07/02/24 07/02/24 Range/Units 05:13 05:33 APTT 40.0 H (22.0-30.0) sec POC Glucose (mg/dL) 154 H (70-110) mg/dL Microbiology - Last 24 Hours (Table) 06/29/24 17:30 Nasal Screen MRSA/MSSA - Final Nasal Swab Assessment and Plan Assessment: Triple-vessel coronary artery disease, non-STEMI this admission Chest pain, shortness of breath secondary to above History of insulin-dependent diabetes with uncontrolled hyperglycemia, hemoglobin A1c 9.8% Hyperlipidemia, cholesterol 206, LDL 124, triglycerides 239 Lifelong non-smoker, preoperative FEV1 90% of predicted Family history of premature coronary artery disease, father had CABG at 40 years old Plan: Continue to maximize medical therapy with aspirin, statin, beta-marcia Increase activity as tolerated Our plan is for off-pump myocardial revascularization with YIN, endoscopic vein harvest, ligation of the left atrial appendage by Dr. Samayoa on Thursday, July 04, 2024 Patient needs better control over her blood sugars, Jardiance discontinued by us as she needs to be off for 3 days prior to surgery to prevent intra/postoperative hypoglycemia Reinforce preoperative teaching Medical management of other comorbidities per internal medicine, cardiology More recommendations to follow
--- NOTE | 2024-07-02 10:37 | P.PN ---
Subjective Progress Note Date: 07/02/24 The patient was seen and evaluated. She is asymptomatic and hemodynamically stable. She is on aspirin and statin. The echo showed preserved LV systolic function with no significant valvular abnormalities. Also she is on heparin IV. The physical examination is remarkable for regular rhythm with a clear breathing sounds bilaterally and no carotid bruit and no edema was noted Assessment: NSTEMI Triple-vessel coronary artery disease scheduled for CABG on 07/04 Insulin-dependent diabetes mellitus Hyperlipidemia Family history of premature coronary artery disease Plan: Continue the current medical regimen Proceed with open heart on Thursday Objective - Vital Signs Vital signs: Vital Signs Temp 97.5 F L 07/02/24 07:35 Pulse 65 07/02/24 07:35 Resp 17 07/02/24 07:35 BP 123/77 07/02/24 07:35 Pulse Ox 99 07/02/24 07:35 FiO2 Intake & Output 07/01/24 07/02/24 07/02/24 18:59 06:59 18:59 Intake Total 414.308 269.973 Balance 414.308 269.973 Weight 75.9 kg Intake: Intake, IV Titration 60.308 151.973 Amount Heparin Sod,Pork in 0.45% 60.308 151.973 NaCl 25,000 unit In 0.45 % NaCl 1 250ml.bag @ 12 UNITS/KG/HR 9.417 mls/hr IV .Q24H [facility] Rx#: [id number] Oral 354 118 Other: Voiding Method Toilet # Voids 5 5 # Bowel Movements 1 2 - Labs CBC & Chem 7: 06/30/24 06:55 Labs: Abnormal Lab Results - Last 24 Hours (Table) 07/01/24 07/01/24 07/01/24 Range/Units 12:09 17:47 19:56 APTT (22.0-30.0) sec POC Glucose (mg/dL) 161 H 159 H 153 H (70-110) mg/dL 07/02/24 07/02/24 Range/Units 05:13 05:33 APTT 40.0 H (22.0-30.0) sec POC Glucose (mg/dL) 154 H (70-110) mg/dL Microbiology - Last 24 Hours (Table) 06/29/24 17:30 Nasal Screen MRSA/MSSA - Final Nasal Swab
--- NOTE | 2024-07-02 11:13 | P.PN ---
Subjective Progress Note Date: 07/02/24 This is a very pleasant 64-year-old female patient with a known history of hyperlipidemia, diabetes mellitus and strong family history of coronary artery disease as her father had coronary artery bypass surgery at 40 years old. She is a lifelong non-smoker. She had presented to [facility] and was found to have a non-ST segment elevation myocardial infarction. She had a cardiac catheterization done there revealing significant triple-vessel coronary artery disease. She was transferred here on June 29, 2024 for cardiothoracic evaluation. The plan is for revascularization surgery on July 04, 2024. Echocardiogram revealed preserved left ventricular systolic function with an ejection fraction 55 to 60%. Carotid Dopplers revealed no significant stenosis bilaterally. CT scan of the chest revealed no significant thoracic abnormalities. She is seen today in consult on the regular medical floor. She is currently sitting up in bed. Awake and alert in no acute distress. Denies any chest discomfort. No shortness of breath, cough or congestion. No palpitations, dizziness or lightheadedness. She is maintaining good O2 saturation in the mid 90s on room air. She is afebrile. Hemodynamically stable. White count 9.7. Hemoglobin 14.4. Platelets 403. Glucose 186. She remains on a heparin drip. She has been educated regarding the use of the incentive spirometer. The patient is seen today July 02, 2024 in follow-up on the regular medical floor. She is currently sitting up at the bedside. Awake and alert in no acute distress. Maintaining good O2 saturations in the 90s on room air. She denies any shortness of breath, cough or congestion. She denies any chest pain or palpitations. She is working well with the incentive spirometer. She remains on a heparin drip. Glucose 154. Remains on Levemir with a NovoLog sliding scale. Objective - Vital Signs Vital signs: Vital Signs Temp 97.5 F L 07/02/24 07:35 Pulse 65 07/02/24 07:35 Resp 17 07/02/24 07:35 BP 123/77 07/02/24 07:35 Pulse Ox 99 07/02/24 07:35 FiO2 Intake & Output 07/01/24 07/02/24 07/02/24 18:59 06:59 18:59 Intake Total 414.308 269.973 Balance 414.308 269.973 Weight 75.9 kg Intake: Intake, IV Titration 60.308 151.973 Amount Heparin Sod,Pork in 0.45% 60.308 151.973 NaCl 25,000 unit In 0.45 % NaCl 1 250ml.bag @ 12 UNITS/KG/HR 9.417 mls/hr IV .Q24H TAYLA Rx#: [id number] Oral 354 118 Other: Voiding Method Toilet # Voids 5 5 # Bowel Movements 1 2 - Exam GENERAL EXAM: Alert, active, 64-year-old female, on room air, comfortable in no apparent distress. HEAD: Normocephalic. EYES: Normal reaction of pupils, equal size. NOSE: Clear with pink turbinates. THROAT: No erythema or exudates. NECK: No masses, no JVD. CHEST: No chest wall deformity. LUNGS: Equal air entry with no crackles, wheeze, rhonchi or dullness. CVS: S1 and S2 normal with no audible murmur, regular rhythm. ABDOMEN: No hepatosplenomegaly, normal bowel sounds, no guarding or rigidity. SPINE: No scoliosis or deformity SKIN: No rashes CENTRAL NERVOUS SYSTEM: No focal deficits, tone is normal in all 4 extremities. EXTREMITIES: There is no peripheral edema. No clubbing, no cyanosis. Peripheral pulses are intact. - Labs CBC & Chem 7: 06/30/24 06:55 Labs: Abnormal Lab Results - Last 24 Hours (Table) 07/01/24 07/01/24 07/01/24 Range/Units 12:09 17:47 19:56 APTT (22.0-30.0) sec POC Glucose (mg/dL) 161 H 159 H 153 H (70-110) mg/dL 07/02/24 07/02/24 Range/Units 05:13 05:33 APTT 40.0 H (22.0-30.0) sec POC Glucose (mg/dL) 154 H (70-110) mg/dL Microbiology - Last 24 Hours (Table) 06/29/24 17:30 Nasal Screen MRSA/MSSA - Final Nasal Swab Assessment and Plan Assessment: Acute non-ST elevation myocardial infarction and found to have significant triple-vessel coronary artery disease. Plan is for revascularization on 07/04/2024 Family history of early coronary artery disease with her father having bypass at the age of 40 Diabetes mellitus Hyperlipidemia Lifelong non-smoker Plan: The patient was seen and evaluated Labs and medications reviewed Currently stable and on room air Remains on a heparin drip Working with the incentive spirometer Plan is for CABG on 07/04/2024 This patient was seen independently by the pulmonary nurse practitioner addressing pulmonary issues I have personally seen and examined the patient, performed the documentation and the assessment and plan as written. Number of minutes spent on the visit: 24 Dictation was produced using Upstream dictation software. Please excuse any grammatical, word or spelling errors.
[2024-07-02 12:07] LABS: Glucose,Whole Blood 194 mg/dL (70-110)
[2024-07-02 17:18] LABS: Glucose,Whole Blood 147 mg/dL (70-110)
[2024-07-02 19:53] LABS: Glucose,Whole Blood 252 mg/dL (70-110)
--- NOTE | 2024-07-03 03:13 | PN ---
PROGRESS NOTE DATE OF SERVICE: 07/01/2024 CHIEF COMPLAINT: NSTEMI. HISTORY OF PRESENT ILLNESS: This lady is doing well, and she is stable. She is having her surgery on Thursday. PHYSICAL EXAMINATION: VITAL SIGNS: Normal. CHEST: Clear. CARDIAC: Normal. ABDOMEN: Soft, nontender. IMPRESSION: 1. [id number] myocardial infarction with triple-vessel coronary artery disease. 2. Type 2 diabetes. PLAN: She is stable at this time and prepare for surgery Thursday and does not have any questions. MMODL / IJN: [id number] /
--- NOTE | 2024-07-03 03:13 | PN ---
PROGRESS NOTE DATE OF SERVICE: 07/02/2024 CHIEF COMPLAINT: Coronary artery disease. HISTORY OF PRESENT ILLNESS: This lady is stable without any problems. She is scheduled for her surgery on Thursday. PHYSICAL EXAMINATION: GENERAL: Color is good. She is awake, alert. VITAL SIGNS: Normal. CHEST: Clear. CARDIAC: Normal. IMPRESSION: 1. Triple-vessel coronary artery disease. 2. Diabetes. PLAN: Surgery on Thursday. MMODL / IJN: [id number] /
[2024-07-03 05:37] LABS: Glucose,Whole Blood 122 mg/dL (70-110)
[2024-07-03 06:28] LABS: Partial Thromboplastin Time 49.7 sec (22.0-30.0); Prothrombin Time 11.2 sec (10.0-12.5)
--- NOTE | 2024-07-03 08:10 | P.PN ---
Subjective Progress Note Date: 07/03/24 Principal diagnosis: Triple-vessel coronary artery disease, non-STEMI this admission. History of insulin-dependent diabetes uncontrolled with hyperglycemia, hyperlipidemia, lifelong non-smoker, family history of premature coronary artery disease, father had CABG at 40 years old The patient was seen and examined this morning laying in bed sleeping on 6 N. in no acute distress. Remains in sinus rhythm, hemodynamically stable. Our plan is for off-pump CABG by Dr. Samayoa on July 04. No other new concerns. Objective - Vital Signs Vital signs: Vital Signs Temp 97.9 F 07/03/24 07:45 Pulse 67 07/03/24 07:45 Resp 16 07/03/24 07:45 BP 123/82 07/03/24 07:45 Pulse Ox 98 07/03/24 07:45 FiO2 Intake & Output 07/02/24 07/03/24 07/03/24 18:59 06:59 18:59 Intake Total 269.973 Balance 269.973 Weight 75.7 kg Intake: Intake, IV Titration 151.973 Amount Heparin Sod,Pork in 0.45% 151.973 NaCl 25,000 unit In 0.45 % NaCl 1 250ml.bag @ 12 UNITS/KG/HR 9.417 mls/hr IV .Q24H TAYLA Rx#: [id number] Oral 118 Other: Voiding Method Toilet # Voids 5 4 # Bowel Movements 1 - Exam CONSTITUTIONAL: Appears comfortable, sleeping, no acute distress RESPIRATORY: Lungs sounds diminished bilaterally. Respirations even, nonlabored. Currently on room air with oxygen saturation 99% CARDIOVASCULAR: S1, S2 present. Regular rate and rhythm, sinus rhythm on telemetry. Palpable peripheral pulses bilaterally. No edema present. No calf pain or tenderness noted GASTROINTESTINAL: Abdomen soft, nontender, nondistended. Active bowel sounds present 4 quadrants. Tolerating diet GENITOURINARY: Continues to void INTEGUMENTARY: Skin is warm and dry NEUROLOGIC: Cranial nerves II through XII intact MUSKULOSKELETAL: Able to move all extremities, strength equal bilaterally, gait normal - Allied health notes Allied health notes reviewed: nursing - Labs CBC & Chem 7: 06/30/24 06:55 Labs: Abnormal Lab Results - Last 24 Hours (Table) 07/02/24 07/02/24 07/02/24 Range/Units 12:06 17:17 19:47 APTT (22.0-30.0) sec POC Glucose (mg/dL) 194 H 147 H 252 H (70-110) mg/dL Crossmatch 07/03/24 07/03/24 07/03/24 Range/Units 05:33 05:33 05:33 APTT 49.7 H (22.0-30.0) sec POC Glucose (mg/dL) 122 H (70-110) mg/dL Crossmatch See Detail Assessment and Plan Assessment: Triple-vessel coronary artery disease, non-STEMI this admission Chest pain, shortness of breath secondary to above History of insulin-dependent diabetes with uncontrolled hyperglycemia, hemoglobin A1c 9.8% Hyperlipidemia, cholesterol 206, LDL 124, triglycerides 239 Lifelong non-smoker, preoperative FEV1 90% of predicted Family history of premature coronary artery disease, father had CABG at 40 years old Plan: Continue to maximize medical therapy with aspirin, statin, beta-marcia Increase activity as tolerated Our plan is for off-pump myocardial revascularization with YIN, endoscopic vein harvest, ligation of the left atrial appendage by Dr. Samayoa on Thursday, July 04, 2024 N.p.o. after midnight Reinforce preoperative teaching Medical management of other comorbidities per internal medicine, cardiology More recommendations to follow
--- NOTE | 2024-07-03 10:53 | XR ---
Chest, 2 view. HISTORY: Preop open heart. COMPARISON: None TECHNIQUE: PA and lateral views the chest are obtained. FINDINGS: The lungs are clear and there is no consolidative or interstitial opacity. There is no pleural effusion or pneumothorax. The heart, pulmonary vasculature, mediastinum and ximena appear normal. The osseous structures are intact. IMPRESSION: No significant abnormality seen. No acute cardiopulmonary disease. [facility], Workstation: NAOMI 07/03/2024 10:51 AM
[2024-07-03 11:12] LABS: HCT 43.2 % (37.2-46.3); HGB 14.5 g/dL (12.0-15.0); MCH 28.5 pg (27.0-32.0); MCHC 33.6 g/dL (32.0-37.0); MCV 84.9 FL (80.0-97.0); NRBC Per 100 WBC 0 X 10*3/uL (0.00-0.01); Platelet Count 503 X 10*3/uL (140-440); RBC 5.09 X 10*6/uL (4.10-5.20); RDW 12.4 % (11.5-14.5); WBC 10.67 X 10*3/uL (4.50-10.00)
[2024-07-03 11:26] LABS: ALT 56 U/L (8-44); AST 38 U/L (13-35); Alkaline Phosphatase 67 U/L (41-126); BUN/Creat Ratio 17.67 Ratio (12.00-20.00); Blood Urea Nitrogen 10.6 mg/dL (9.0-27.0); Calcium 9.3 mg/dL (8.7-10.3); Carbon Dioxide 21.4 mmol/L (21.6-31.8); Chloride 107 mmol/L (96-109); Globulin 2.5 g/dL (1.6-3.3); Glucose 134 mg/dL (70-110); Potassium 4.3 mmol/L (3.5-5.5); Sodium 141 mmol/L (135-145); Total Protein 6.5 g/dL (6.2-8.2)
--- NOTE | 2024-07-03 12:00 | P.PN ---
Subjective Progress Note Date: 07/03/24 This is a very pleasant 64-year-old female patient with a known history of hyperlipidemia, diabetes mellitus and strong family history of coronary artery disease as her father had coronary artery bypass surgery at 40 years old. She is a lifelong non-smoker. She had presented to [facility] and was found to have a non-ST segment elevation myocardial infarction. She had a cardiac catheterization done there revealing significant triple-vessel coronary artery disease. She was transferred here on June 29, 2024 for cardiothoracic evaluation. The plan is for revascularization surgery on July 04, 2024. Echocardiogram revealed preserved left ventricular systolic function with an ejection fraction 55 to 60%. Carotid Dopplers revealed no significant stenosis bilaterally. CT scan of the chest revealed no significant thoracic abnormalities. She is seen today in consult on the regular medical floor. She is currently sitting up in bed. Awake and alert in no acute distress. Denies any chest discomfort. No shortness of breath, cough or congestion. No palpitations, dizziness or lightheadedness. She is maintaining good O2 saturation in the mid 90s on room air. She is afebrile. Hemodynamically stable. White count 9.7. Hemoglobin 14.4. Platelets 403. Glucose 186. She remains on a heparin drip. She has been educated regarding the use of the incentive spirometer. The patient is seen today July 02, 2024 in follow-up on the regular medical floor. She is currently sitting up at the bedside. Awake and alert in no acute distress. Maintaining good O2 saturations in the 90s on room air. She denies any shortness of breath, cough or congestion. She denies any chest pain or palpitations. She is working well with the incentive spirometer. She remains on a heparin drip. Glucose 154. Remains on Levemir with a NovoLog sliding scale. The patient is seen today July 03, 2024 in follow-up on the regular medical floor. She is sitting up having breakfast. Awake and alert in no acute distress. Continues to maintain good O2 saturations in the 90s on room air. She continues to work with the incentive spirometer. Chest x-ray reveals no acute cardiopulmonary process. She denies any chest pain, palpitations or dizziness. White count 10.6. Hemoglobin 14.5. Platelets 503. INR 1.0. Sodium 141. Potassium 4.3. Bicarb 21. BUN 11. Creatinine 0.6. Glucose 122. She remains on a heparin drip. Objective - Vital Signs Vital signs: Vital Signs Temp 97.9 F 07/03/24 07:45 Pulse 67 07/03/24 07:45 Resp 16 07/03/24 07:45 BP 123/82 07/03/24 07:45 Pulse Ox 98 07/03/24 07:45 FiO2 Intake & Output 07/02/24 07/03/24 07/03/24 18:59 06:59 18:59 Intake Total 269.973 250 360 Balance 269.973 250 360 Weight 75.7 kg Intake: Intake, IV Titration 151.973 250 Amount Heparin Sod,Pork in 0.45% 151.973 250 NaCl 25,000 unit In 0.45 % NaCl 1 250ml.bag @ 12 UNITS/KG/HR 9.417 mls/hr IV .Q24H TAYLA Rx#: [id number] Oral 118 360 Other: Voiding Method Toilet # Voids 5 4 # Bowel Movements 1 - Exam GENERAL EXAM: Alert, 64-year-old female, sitting up having breakfast, on room air, in no apparent distress. HEAD: Normocephalic. EYES: Normal reaction of pupils, equal size. NOSE: Clear with pink turbinates. THROAT: No erythema or exudates. NECK: No masses, no JVD. CHEST: No chest wall deformity. LUNGS: Equal air entry with no crackles, wheeze, rhonchi or dullness. CVS: S1 and S2 normal with no audible murmur, regular rhythm. ABDOMEN: No hepatosplenomegaly, normal bowel sounds, no guarding or rigidity. SPINE: No scoliosis or deformity SKIN: No rashes CENTRAL NERVOUS SYSTEM: No focal deficits, tone is normal in all 4 extremities. EXTREMITIES: There is no peripheral edema. No clubbing, no cyanosis. Peripheral pulses are intact. - Labs CBC & Chem 7: 07/03/24 05:33 07/03/24 05:33 Labs: Abnormal Lab Results - Last 24 Hours (Table) 07/02/24 07/02/24 07/02/24 Range/Units 12:06 17:17 19:47 WBC (4.50-10.00) X 10*3/uL Plt Count (140-440) X 10*3/uL APTT (22.0-30.0) sec Carbon Dioxide (21.6-31.8) mmol/L Anion Gap (4.00-12.00) mmol/L Glucose (70-110) mg/dL POC Glucose (mg/dL) 194 H 147 H 252 H (70-110) mg/dL AST (13-35) U/L ALT (8-44) U/L Crossmatch 07/03/24 07/03/24 07/03/24 Range/Units 05:33 05:33 05:33 WBC 10.67 H (4.50-10.00) X 10*3/uL Plt Count 503 H (140-440) X 10*3/uL APTT 49.7 H (22.0-30.0) sec Carbon Dioxide (21.6-31.8) mmol/L Anion Gap (4.00-12.00) mmol/L Glucose (70-110) mg/dL POC Glucose (mg/dL) (70-110) mg/dL AST (13-35) U/L ALT (8-44) U/L Crossmatch See Detail 07/03/24 07/03/24 Range/Units 05:33 05:33 WBC (4.50-10.00) X 10*3/uL Plt Count (140-440) X 10*3/uL APTT (22.0-30.0) sec Carbon Dioxide 21.4 L (21.6-31.8) mmol/L Anion Gap 12.60 H (4.00-12.00) mmol/L Glucose 134 H (70-110) mg/dL POC Glucose (mg/dL) 122 H (70-110) mg/dL AST 38 H (13-35) U/L ALT 56 H (8-44) U/L Crossmatch Assessment and Plan Assessment: Acute non-ST elevation myocardial infarction and found to have significant triple-vessel coronary artery disease. Plan is for revascularization on 06/25 Family history of early coronary artery disease with her father having bypass at the age of 40 Diabetes mellitus Hyperlipidemia Lifelong non-smoker Plan: The patient was seen and evaluated Chest x-ray, labs and medications reviewed Working with the incentive spirometer Stable and on room air Remains on a heparin drip Plan is still for CABG on 07/04/2024 This patient was seen independently by the pulmonary nurse practitioner addressing pulmonary issues I have personally seen and examined the patient, performed the documentation and the assessment and plan as written. Number of minutes spent on the visit: 23 Dictation was produced using [employer] dictation software. Please excuse any grammatical, word or spelling errors.
[2024-07-03 12:16] LABS: Glucose,Whole Blood 153 mg/dL (70-110)
[2024-07-03 16:11] LABS: Appearance,Urine Clear (Clear); Bilirubin,Urine Negative (Negative); Blood,Urine Negative (Negative); Color,Urine Light Yellow; Glucose,Urine (UA) Negative (Negative); Ketones,Urine Negative (Negative); Leukocyte Esterase,Urine Negative (Negative); Nitrite,Urine Negative (Negative); PH, Urine 5.5 (5.0-8.0); Protein,Urine Negative (Negative); Specific Gravity,Urine 1.021 (1.001-1.035); Urobilinogen,Urine <2.0 mg/dL (<2.0)
--- NOTE | 2024-07-03 16:54 | P.PN ---
Subjective Progress Note Date: 07/03/24 The patient was seen and evaluated. She is asymptomatic and hemodynamically stable. She is on aspirin and statin. The echo showed preserved LV systolic function with no significant valvular abnormalities. Also she is on heparin IV. The physical examination is remarkable for regular rhythm with a clear breathing sounds bilaterally and no carotid bruit and no edema was noted . 2024 The patient was seen and evaluated this morning she remains asymptomatic from a cardiovascular standpoint of view. The plan is to pursue with open heart surgery tomorrow. The physical examination has not changed remarkable. At this point I would continue the current medical regimen. Follow-up with the patient after the open heart surgery Assessment: NSTEMI Triple-vessel coronary artery disease scheduled for CABG on 07/04 Insulin-dependent diabetes mellitus Hyperlipidemia Family history of premature coronary artery disease Plan: Continue the current medical regimen Proceed with open heart on Thursday Objective - Vital Signs Vital signs: Vital Signs Temp 97.8 F 07/03/24 14:36 Pulse 62 07/03/24 14:36 Resp 16 07/03/24 14:36 BP 103/60 07/03/24 14:36 Pulse Ox 97 07/03/24 14:36 FiO2 Intake & Output 07/02/24 07/03/24 07/03/24 18:59 06:59 18:59 Intake Total 269.973 250 478 Balance 269.973 250 478 Weight 75.7 kg Intake: Intake, IV Titration 151.973 250 Amount Heparin Sod,Pork in 0.45% 151.973 250 NaCl 25,000 unit In 0.45 % NaCl 1 250ml.bag @ 12 UNITS/KG/HR 9.417 mls/hr IV .Q24H TAYLA Rx#: [id number] Oral 118 478 Other: Voiding Method Toilet # Voids 5 4 3 # Bowel Movements 1 - Labs CBC & Chem 7: 07/03/24 05:33 07/03/24 05:33 Labs: Abnormal Lab Results - Last 24 Hours (Table) 07/02/24 07/02/24 07/03/24 Range/Units 17:17 19:47 05:33 WBC (4.50-10.00) X 10*3/uL Plt Count (140-440) X 10*3/uL APTT (22.0-30.0) sec Carbon Dioxide (21.6-31.8) mmol/L Anion Gap (4.00-12.00) mmol/L Glucose (70-110) mg/dL POC Glucose (mg/dL) 147 H 252 H (70-110) mg/dL AST (13-35) U/L ALT (8-44) U/L Crossmatch See Detail 07/03/24 07/03/24 07/03/24 Range/Units 05:33 05:33 05:33 WBC 10.67 H (4.50-10.00) X 10*3/uL Plt Count 503 H (140-440) X 10*3/uL APTT 49.7 H (22.0-30.0) sec Carbon Dioxide 21.4 L (21.6-31.8) mmol/L Anion Gap 12.60 H (4.00-12.00) mmol/L Glucose 134 H (70-110) mg/dL POC Glucose (mg/dL) (70-110) mg/dL AST 38 H (13-35) U/L ALT 56 H (8-44) U/L Crossmatch 07/03/24 07/03/24 Range/Units 05:33 12:15 WBC (4.50-10.00) X 10*3/uL Plt Count (140-440) X 10*3/uL APTT (22.0-30.0) sec Carbon Dioxide (21.6-31.8) mmol/L Anion Gap (4.00-12.00) mmol/L Glucose (70-110) mg/dL POC Glucose (mg/dL) 122 H 153 H (70-110) mg/dL AST (13-35) U/L ALT (8-44) U/L Crossmatch
[2024-07-03 17:10] LABS: Glucose,Whole Blood 142 mg/dL (70-110)
[2024-07-03 20:01] LABS: Glucose,Whole Blood 243 mg/dL (70-110)
[2024-07-04] MEDS ORDERED: NOREPINEPHRINE 4 MG in SODIUM CHLORIDE 0.9% 250 ML IV SCH (05:00)
[2024-07-04] MEDS ORDERED: INSULIN REGULAR 100 UNIT in SODIUM CHLORIDE 0.9% 100 ML IV SCH (05:00)
[2024-07-04] MEDS ORDERED: CARDIOPLEGIC SOLN (K+ 16 MEQ/L 1,000 ML with SOD BICARB SYR 8.4% (1 MEQ/ML) 20 ML, LIDO... PERFUSION NR (05:00)
[2024-07-04] MEDS: ASPIRIN 325 MG TAB PO ONE (05:27)
[2024-07-04] MEDS: ATORVASTATIN 10 MG TAB PO ONE (05:27)
[2024-07-04 05:32] LABS: Glucose,Whole Blood 155 mg/dL (70-110)
[2024-07-04] MEDS: METOPROLOL TARTRATE 12.5 MG TAB PO ONE (05:46)
[2024-07-04] MEDS: LIDOCAINE 1% (10MG/ML) FOR IV START INTRADERMA PRN (06:25)
[2024-07-04 06:32] LABS: Glucose,Whole Blood 162 mg/dL (70-110)
[2024-07-04] MEDS: LACTATED RINGERS 1,000 ML IV SCH (06:40)
[2024-07-04] MEDS: IV FLUID CONTINUATION 1,000 ML IV ONE (06:42)
[2024-07-04] MEDS ORDERED: MIDAZOLAM HCL 10 MG/10 ML VIAL ONE (07:52)
[2024-07-04] MEDS ORDERED: WATER FOR INJECTION, STERILE 10 ML VIAL IV ONE (07:52)
[2024-07-04] MEDS ORDERED: ALBUMIN HUMAN 5% (25gm) 500 ML VIAL IVPB ONE (07:52)
[2024-07-04] MEDS ORDERED: VECURONIUM 10 MG VIAL IV ONE (07:52)
[2024-07-04] MEDS ORDERED: EPINEPHrine 10 ML SYRINGE (0.1 MG/ML) ONE (07:52)
[2024-07-04] MEDS ORDERED: HEPARIN SODIUM,PORCINE 10,000 UNIT/ML 1 ML VIAL ONE (07:52)
[2024-07-04] MEDS ORDERED: PROPOFOL 10 MG/ML 20 ML VIAL IV ONE (07:52)
[2024-07-04] MEDS ORDERED: CALCIUM CHLORIDE 100 MG/ML 10 ML SYRINGE ONE (07:52)
[2024-07-04] MEDS ORDERED: INSULIN REGULAR 100 UNIT/ML VIAL (IV) ONE (07:52)
[2024-07-04] MEDS ORDERED: PHENYLEPHRINE 10 MG/ML VIAL ONE (07:52)
[2024-07-04] MEDS ORDERED: PROTAMINE SULFATE 10 MG/ML 25 ML VIAL IV ONE (07:52)
[2024-07-04] MEDS ORDERED: ePHEDrine 50 MG/ML 1 ML VIAL ONE (07:52)
[2024-07-04] MEDS ORDERED: fentaNYL (PF) 50 MCG/ML 50 ML VIAL ONE (07:52)
[2024-07-04 08:38] LABS: ABG Base Excess -1.3 mmol/L; ABG Glucose Whole Blood 150 mg/dL (75-99); ABG HCO3 23 mmol/L (21-25); ABG Hematocrit 38 % (34.0-46.0); ABG Ionized Calcium 4.9 mg/dL (4.5-5.3); ABG Oxygen Saturation >99.4 % (94-97); ABG PCO2 37 mmHg (35-45); ABG PH 7.41 (7.35-7.45); ABG PO2 407 mmHg (83-108); ABG Potassium Whole Blood 3.6 mmol/L (3.4-4.5); ABG Sodium Whole Blood 141 mmol/L (135-146); Allen Test Performed? Yes
[2024-07-04] MEDS: SODIUM CHLORIDE 0.9% 500 ML 500 ML with HEPARIN SODIUM,PORCINE (1 ML) 5,000 UNIT IV ONE (09:02)
[2024-07-04] MEDS: ceFAZolin 1,000 MG in SODIUM CHLORIDE 0.9% 1,000 ML IRRIGATION ONE (09:03)
[2024-07-04] MEDS: PAPAVERINE 360 MG in SODIUM CHLORIDE 0.9% 90 ML IV ONE (09:03)
[2024-07-04 10:03] LABS: ABG Base Excess -2.2 mmol/L; ABG Glucose Whole Blood 124 mg/dL (75-99); ABG HCO3 22 mmol/L (21-25); ABG Hematocrit 34 % (34.0-46.0); ABG Ionized Calcium 5.1 mg/dL (4.5-5.3); ABG PCO2 34 mmHg (35-45); ABG PH 7.42 (7.35-7.45); ABG PO2 149 mmHg (83-108); ABG Potassium Whole Blood 3.9 mmol/L (3.4-4.5); ABG Sodium Whole Blood 139 mmol/L (135-146); ABG TCO2 20 mmol/L (19-24); Allen Test Performed? Yes
[2024-07-04 11:11] LABS: ABG Base Excess -3.8 mmol/L; ABG Glucose Whole Blood 187 mg/dL (75-99); ABG HCO3 22 mmol/L (21-25); ABG Hematocrit 25 % (34.0-46.0); ABG Ionized Calcium 5.1 mg/dL (4.5-5.3); ABG Lactic Acid Whole Blood 1.8 mmol/L (0.5-1.6); ABG Oxygen Saturation 99.4 % (94-97); ABG PCO2 41 mmHg (35-45); ABG PH 7.34 (7.35-7.45); ABG PO2 391 mmHg (83-108); ABG Potassium Whole Blood 3.2 mmol/L (3.4-4.5); ABG Sodium Whole Blood 141 mmol/L (135-146); ABG TCO2 21 mmol/L (19-24); Allen Test Performed? Yes
--- NOTE | 2024-07-04 11:28 | P.ANPRN ---
Procedure Note - Anesthesia - Invasive Line Right Central Line Time Out Performed: Yes Date of Procedure: 07/04/24 Time of Procedure: 07:48 Location of Patient: PreOp Preparation: Sterile Prep, Sterile Dressing Central Line Location: Internal Jugular Ultrasound Used: No Purpose - Visualization and Identification of Vasculature: No Image Stored and Saved: No Narrative: Invasive line placement per sterile protocol utilized.
--- NOTE | 2024-07-04 11:28 | P.ANPRN ---
Procedure Note - Anesthesia - Invasive Line Right Arterial Line Time Out Performed: Yes Date of Procedure: 07/04/24 Time of Procedure: 07:36 Preparation: Sterile Prep, Sterile Dressing Arterial Line Location: Briachial Ultrasound Used: No Purpose - Visualization and Identification of Vasculature: No Image Stored and Saved: No Narrative: Invasive line placement per sterile protocol utilized.
--- NOTE | 2024-07-04 11:29 | P.ANPRN ---
Procedure Note - Anesthesia - Invasive Line Right [place] Time Out Performed: Yes Date of Procedure: 07/04/24 Time of Procedure: 07:51 Location of Patient: PreOp Preparation: Sterile Prep, Sterile Dressing Central Line Location: Internal Jugular Ultrasound Used: No Purpose - Visualization and Identification of Vasculature: No Image Stored and Saved: No Narrative: Invasive line placement per sterile protocol utilized.
[2024-07-04 11:47] LABS: ABG Base Excess -1.5 mmol/L; ABG Glucose Whole Blood 164 mg/dL (75-99); ABG HCO3 23 mmol/L (21-25); ABG PCO2 38 mmHg (35-45); ABG PH 7.39 (7.35-7.45); ABG PO2 177 mmHg (83-108); ABG Potassium Whole Blood 4.1 mmol/L (3.4-4.5); ABG Sodium Whole Blood 141 mmol/L (135-146); ABG TCO2 22 mmol/L (19-24); Allen Test Performed? Yes
[2024-07-04 12:13] LABS: ABG Base Excess -0.9 mmol/L; ABG Glucose Whole Blood 147 mg/dL (75-99); ABG HCO3 24 mmol/L (21-25); ABG Ionized Calcium 4.9 mg/dL (4.5-5.3); ABG Oxygen Saturation 98.2 % (94-97); ABG PCO2 39 mmHg (35-45); ABG PH 7.39 (7.35-7.45); ABG PO2 82 mmHg (83-108); ABG Potassium Whole Blood 3.8 mmol/L (3.4-4.5); ABG Sodium Whole Blood 143 mmol/L (135-146); ABG TCO2 23 mmol/L (19-24); Allen Test Performed? Yes
[2024-07-04] MEDS ORDERED: Potassium Replacement Protocol 1 EACH MISC MISCELLANE PRN (13:08)
[2024-07-04] MEDS ORDERED: hydrALAZINE HCL 20 MG/ML 1 ML VIAL IVP PRN (13:08)
[2024-07-04] MEDS ORDERED: CLEVIDIPINE BUTYRATE 25 MG in EMPTY BAG 1 BAG IV PRN (13:08)
[2024-07-04] MEDS ORDERED: Magnesium Replacement Protocol 1 EACH MISC MISCELLANE PRN (13:08)
[2024-07-04] MEDS ORDERED: BENZOCAINE/MENTHOL LOZENG 1 EACH LOZENGE MUCOUS MEM PRN (13:08)
[2024-07-04] MEDS ORDERED: DEXTROSE 50% SYRINGE 50 ML IVP PRN ×2 (13:08)
[2024-07-04] MEDS ORDERED: CALCIUM GLUCONATE IN NACL 2 GM in SALINE 1 100ML.BAG IVPB PRN (13:08)
[2024-07-04] MEDS ORDERED: DEXTROSE 5% IN WATER 100 ML with AMIODARONE 150 MG IV PRN (13:08)
[2024-07-04 13:14] LABS: Glucose,Whole Blood 157 mg/dL (70-110)
[2024-07-04] MEDS: NITROGLYCERIN-D5W PMX 50 MG in DEXTROSE/WATER 1 250ML.BAG IV SCH (13:18)
[2024-07-04] MEDS: SODIUM CHLORIDE 0.9% 1,000 ML IV SCH (13:18)
--- NOTE | 2024-07-04 13:18 | P.OP ---
Date of Procedure: 07/04/24 Preoperative Diagnosis: Coronary artery disease, subendocardial infarction Postoperative Diagnosis: Same Procedure(s) Performed: Off-pump coronary artery bypass grafting 3 with YIN to LAD, SVG's to second obtuse marginal and posterior descending coronary arteries.Ligation of the left atrial appendage with 35 mm AtriCure clip, placement of Right femoral arterial line. Implants: 35mm AtriCure clip Anesthesia: GETA Surgeon: Cy Samayoa Ware[employer] Delivery Driver #1: Hipolito Marin Ware[employer] Delivery Driver #2: Yvan Marino Estimated Blood Loss (ml): 400 IV fluids (ml): 2,500 Urine output (ml): 500 Pathology: none sent Condition: stable Disposition: ICU Indications for Procedure: 64-year-old obese diabetic female presented with several month history of anginal dermatology and severe angina. Ruled in for subendocardial infarction. Taken to collaborating supervising physician at outside facility and found to have severe three-vessel coronary artery disease with complete occlusion of the right coronary artery and tight stenosis of the left anterior descending and left circumflex coronary arteries. Left ventricular function was well preserved by echocardiography and there was no significant valvular heart disease noted. Patient was recommended to undergo coronary artery bypass grafting and appropriate workup was pursued. Following this the patient was scheduled for next available coronary artery bypass slot. Operative Findings: There was diffuse coronary artery disease present throughout. First obtuse marginal was a diffusely diseased vessel extending well out into past the bifurcation. Second obtuse marginal ordinary artery was a much softer and bigger vessel went ran in the same distribution. PDA was small vessel which was heavily diseased proximally. It had a soft spot in its midportion. The LAD ran intramyocardially for much of the proximal half of the anterior wall and surface about mcfp down the anterior wall. It was grafted here. YIN was an excellent conduit. The right greater saphenous vein was good conduit for much of its length although small of the ankle. On completion of the case, LV and RV function were excellent and there was no significant valvular dysfunction. Description of Procedure: Patient was brought to the operating room and placed supine on the operating table. General anesthesia was induced. PAZ probe was placed. Patient was appropriately positioned. The anterior torso and bilateral lower extremities were sterilely prepped and draped. Greater saphenous vein was harvested from the right lower extremity from just above the ankle to the groin and was of good quality although somewhat small distally. This was performed endoscopically of the incision was closed with layers of Vicryl suture. The vein was of the back table. Simultaneous sternotomy was performed. Left hemisternum was retracted upwards and the left internal mammary artery harvested on a vascularized pedi blanca, left intact on its origin from the subclavian and divided distally. Left pleural space was drained with a 32-Irish chest tube. Standard sternal retractor was placed. Pericardium was opened in the midline and the heart was exposed with pericardial sutures. Patient was systemically heparinized and a CTs were maintained greater than 250 during grafting. 35mm AtriCure clip was applied to the base of the left atrial appendage. The left internal mammary artery pedicle was tunneled into the pericardium and appropriately prepared distally. The LAD was stabilized in its midportion where it exited from deep intramyocardial travel. Was opened and blood flow control with a 1.5 mm flow through. Shortly after this the patient became hypotensive and the PA pressures went up. The RV appeared dilated. Spite inotropic support was started. It was decided to try to place an intra-aortic balloon pump. We able to easily cannulate the right femoral artery under ultrasound guidance in place a guidewire into the descending thoracic aorta however we were unable to successfully advanced balloon pump into the descending thoracic aorta perhaps due to either tortuosity or coiling of the guidewire. Then the patient had stabilized on the inotropic support. The balloon pump was removed and a femoral arterial line was placed. The LAD was stabilized and the YIN to the LAD anastomosis was performed with running 8-0 Prolene suture. On completion of the anastomosis the flow through was removed effectively probing the proximal distal portion of the anastomosis. Suture was tied with good result and hemostasis. Inflow was open. Shortly after opening the inflow the patient completely stabilized. The PA pressures went down. The RV dilatation improved. Systolic blood pressure also improved. We were able to slowly wean the inotropic support over the next hour or so.Inferior wall of the heart was exposed the posterior descending coronary artery was explored. Was heavily diseased for its proximal first half and then became soft. It was stabilized and it soft area.'s opened here and a 1.5 mm probe easily threaded distally but would not thread proximally. A 1 mm flow through was placed. End to side anastomosis between the saphenous vein and the PDA was performed with running 7-0 Prolene suture. On completion the anastomosis the flow through was removed. The distal anast omosis was probed with a 1.5 mm probe. Suture was tied with good result hemostasis. Good backbleeding was noted into the vein graft to the first valve. The heart was lowered into anatomic position. The vein was cut to appropriate length to reach the ascending aorta. Heartstring device was deployed in a 4 mm punch hole in the proximal third of the ascending aorta in the midline. Proximal anastomosis was constructed with running 5-0 Prolene suture. On completion of the anastomosis the heartstring device was removed and the suture was tied. Good hemostasis was noted. The vein graft was de-aired by needle holes and the inflow open. Graft was noted to lay well with good length. Lateral wall of the heart was exposed. The first obtuse marginal was a diffusely diseased vessel. Second obtuse marginal ran right next to it was a much better quality vessel. It was stabilized and opened fairly proximally. It was 175 mm vessel. Blood flow was controlled 1.5 mm flow through. Distal a nastomosis between a second piece of saphenous vein and the obtuse marginal coronary artery was performed with running 7-0 Prolene suture. On completion of the anastomosis, flow through was removed effectively probing the proximal distal portion of the anastomosis. Suture was tied with good result and hemostasis. Good backbleeding was noted into the vein controlled with a bulldog clamp. The heart was lowered into anatomic position. Vein graft was brought beneath the YIN and cut to appropriate length. Second heartstring device was deployed in the distal ascending aorta to the left of midline and a 4 mm punch hole. Second proximal anastomosis was performed with running 5-0 Prolene suture.On completion of the anastomosis the heartstring device was removed. Suture was tied with good result and hemostasis. Vein graft was de-aired with needle holes and the inflow opened. Graft was noted to lay well. Distal anastomoses were hemostatic. Appeared to be good hemostasis throughout. Heparin was reversed with protamine. After assuring good hemostasis, chest was irrigated with antibiotic solution. The mediastinum was drained with 32-Irish chest tube. Sternum was closed with 8 sternal wires. Fascia was closed with 0 Ethibond. Subcutaneous and subcuticular layers were closed with layers of Vicryl suture. Skin glue and dry sterile dressings were applied. Patient was transferred to the ICU in stable condition.
[2024-07-04] MEDS: AMIODARONE 360 MG in DEXTROSE 5% IN WATER 200 ML IV ONE (13:19)
[2024-07-04] MEDS: INSULIN REGULAR 100 UNIT in SODIUM CHLORIDE 0.9% 100 ML IV SCH (13:20)
[2024-07-04] MEDS ORDERED: AMIODARONE 360 MG in DEXTROSE 5% IN WATER 200 ML IV PRN (13:21)
[2024-07-04] MEDS ORDERED: AMIODARONE 450 MG in DEXTROSE 5% IN WATER 250 ML IV PRN (13:21)
[2024-07-04] MEDS: MILRINONE-D5W PMX 20 MG in DEXTROSE/WATER 1 100ML.BAG IV SCH (13:21)
[2024-07-04] MEDS ORDERED: DEXMEDETOMIDINE/0.9% NACL(PMX) 400 MCG in EMPTY BAG 1 BAG IV SCH (13:30)
[2024-07-04 13:36] LABS: Basophils % (A) 0 %; Eosinophils # (A) 0.1 k/uL (0-0.7); Eosinophils % (A) 1 %; HCT 21.1 % (34.0-46.0); Ionized Calcium 4.9 mg/dL (4.5-5.3); Lymphocytes # (A) 3.5 k/uL (1.0-4.8); Lymphocytes % (A) 23 %; MCH 29.4 pg (25.0-35.0); MCHC 34.3 g/dL (31.0-37.0); MCV 85.7 fL (80.0-100.0); Mean Platelet Volume 6.7; Monocytes # (A) 0.6 k/uL (0-1.0); Monocytes % (A) 4 %; Neutrophils # (A) 10.8 k/uL (1.3-7.7); Neutrophils % (A) 71 %; Platelet Count 219 k/uL (150-450); RBC 2.46 m/uL (3.80-5.40); RDW 12.6 % (11.5-15.5); WBC 15.2 k/uL (3.8-10.6)
[2024-07-04 13:42] LABS: ABG Base Excess -2.6 mmol/L; ABG HCO3 24 mmol/L (21-25); ABG Oxygen Saturation 99.9 % (94-97); ABG PCO2 49 mmHg (35-45); ABG PO2 209 mmHg (83-108); ABG TCO2 25 mmol/L (19-24)
[2024-07-04 13:45] LABS: ALT 27 U/L (4-34); AST 22 U/L (14-36); African American GFR (CKD) >90 (>60 ml/min/1.73 sqM); Alkaline Phosphatase 28 U/L (38-126); Anion Gap 5 mmol/L; Blood Urea Nitrogen 9 mg/dL (7-17); Calcium 8.3 mg/dL (8.4-10.2); Carbon Dioxide 24 mmol/L (22-30); Chloride 109 mmol/L (98-107); Glucose 139 mg/dL (74-99); Magnesium 1.8 mg/dL (1.6-2.3); Non-African American GFR(CKD) >90 (>60 ml/min/1.73 sqM); Potassium 3.8 mmol/L (3.5-5.1); Sodium 138 mmol/L (137-145); Total Protein 4.6 g/dL (6.3-8.2)
[2024-07-04 13:49] LABS: INR 1.3 (<1.2); Partial Thromboplastin Time 25.5 sec (22.0-30.0); Prothrombin Time 13.4 sec (10.0-12.5)
[2024-07-04 13:58] LABS: HGB 7.2 gm/dL (11.4-16.0)
--- NOTE | 2024-07-04 14:11 | XR ---
EXAMINATION TYPE: XR chest 1V portable DATE OF EXAM: 07/04/2024 CLINICAL HISTORY: Postoperative cardiac surgery. TECHNIQUE: Single AP portable supine view of the chest is obtained. Comparison: Chest x-ray one day earlier. FINDINGS: There is new endotracheal tube terminating at the aortic knob level approximately 2 cm abo ve the akash. Advised pulling back 2 cm to be in more ideal position. There is new orogastric tube p rojecting below diaphragm. There is new Right internal jugular [place]-Jeanine catheter terminating in righ t pulmonary outflow tract. There is new mediastinal drainage catheter and left-sided chest tube. There is new moderate central vascular congestion and small bilateral pleural effusions. No pneumotho rax clearly identified. No overlying sternal wires and left atrial appendage clip are seen. Cardiac s ilhouette size is upper limits of normal. Osseous structures are intact. IMPRESSION: 1. Tubes and lines as detailed above. Slightly low-lying endotracheal tube. Consider pulling back 2.0 cm. 2. New small to moderate size right greater than left pleural effusions and moderate interstitial luba ma consistent with fluid overload state. No pneumothorax seen with left-sided chest tube in place. [facility], , 07/04/2024 2:08 PM
[2024-07-04 15:20] LABS: Glucose,Whole Blood 155 mg/dL (70-110)
[2024-07-04] MEDS: MAGNESIUM SULFATE-D5W PMX 1 GM in DEXTROSE/WATER 1 100ML.BAG IVPB ONE (15:22)
[2024-07-04] MEDS: POTASSIUM BICARBONATE/CIT AC 20 MEQ TABLET.EFF NG-TUBE SCH (15:22)
[2024-07-04] MEDS: HEPARIN SODIUM,PORCINE 5,000 UNIT/ML 1 ML VIAL SQ SCH (15:23)
[2024-07-04] MEDS: ONDANSETRON 4 MG/2 ML VIAL IVP PRN (16:01)
[2024-07-04] MEDS: ALBUMIN HUMAN 5% 250 ML in EMPTY BAG 1 BAG IVPB PRN (16:07)
--- NOTE | 2024-07-04 16:12 | P.PN ---
Subjective Progress Note Date: 07/04/24 This is a very pleasant 64-year-old female patient with a known history of hyperlipidemia, diabetes mellitus and strong family history of coronary artery disease as her father had coronary artery bypass surgery at 40 years old. She is a lifelong non-smoker. She had presented to [facility] and was found to have a non-ST segment elevation myocardial infarction. She had a cardiac catheterization done there revealing significant triple-vessel coronary artery disease. She was transferred here on June 29, 2024 for cardiothoracic evaluation. The plan is for revascularization surgery on July 04, 2024. Echocardiogram revealed preserved left ventricular systolic function with an ejection fraction 55 to 60%. Carotid Dopplers revealed no significant stenosis bilaterally. CT scan of the chest revealed no significant thoracic abnormalities. She is seen today in consult on the regular medical floor. She is currently sitting up in bed. Awake and alert in no acute distress. Denies any chest discomfort. No shortness of breath, cough or congestion. No palpitations, dizziness or lightheadedness. She is maintaining good O2 saturation in the mid 90s on room air. She is afebrile. Hemodynamically stable. White count 9.7. Hemoglobin 14.4. Platelets 403. Glucose 186. She remains on a heparin drip. She has been educated regarding the use of the incentive spirometer. The patient is seen today July 02, 2024 in follow-up on the regular medical floor. She is currently sitting up at the bedside. Awake and alert in no acute distress. Maintaining good O2 saturations in the 90s on room air. She denies any shortness of breath, cough or congestion. She denies any chest pain or palpitations. She is working well with the incentive spirometer. She remains on a heparin drip. Glucose 154. Remains on Levemir with a NovoLog sliding scale. The patient is seen today July 03, 2024 in follow-up on the regular medical floor. She is sitting up having breakfast. Awake and alert in no acute distress. Continues to maintain good O2 saturations in the 90s on room air. She continues to work with the incentive spirometer. Chest x-ray reveals no acute cardiopulmonary process. She denies any chest pain, palpitations or dizziness. White count 10.6. Hemoglobin 14.5. Platelets 503. INR 1.0. Sodium 141. Potassium 4.3. Bicarb 21. BUN 11. Creatinine 0.6. Glucose 122. She remains on a heparin drip. The patient is seen today July 04, 2024 in follow-up in the intensive care unit. She is just back from her surgery. She had undergone a coronary artery bypass grafting x 3 with a YIN to the LAD, saphenous vein graft to the OM 2 and PDA. Left atrial clipping. He is intubated on the mechanical ventilator currently on assist-control mode at a rate of 12, tidal volume 400, FiO2 100%, PEEP of 5. Blood gases revealed a PaO2 of 209, pCO2 49 and a pH of 7.30. She is sedated on propofol currently at 20 mcg/kg/min. Primacor at 0.1 mcg/kg/min. Insulin drip at 3 units/h. Nitroglycerin drip at 5 mcg/min. Normal saline at 50 mL/h. She is on heparin for DVT prophylaxis. Initiated on bronchodilators. Right IJ [place]-Jeanine catheter in place. Current cardiac output 5.9. Cardiac index 3.2. PA pressure 26/10. CVP 12. She has left and mediastinal chest tubes in place. Chest x-ray reveals new small to moderate right greater than left pleural effusions. Interstitial edema. No evidence of pneumothorax. White count 15.2. Hemoglobin 7.2. Platelets 219. INR 1.3. Sodium 138. Potassium 3.8. Bicarb 24. BUN 9. Creatinine 0.47. Glucose 139. Objective - Vital Signs Vital signs: Vital Signs Temp 97.5 F L 07/04/24 06:17 Pulse 62 07/04/24 06:08 Resp 18 07/04/24 06:08 BP 125/58 07/04/24 06:08 Pulse Ox 95 07/04/24 06:08 FiO2 60 07/04/24 13:47 Intake & Output 07/03/24 07/04/24 07/04/24 18:59 06:59 18:59 Intake Total 478 336.199 6.055 Output Total 800 Balance 478 336.199 -793.945 Weight 75.3 kg Intake: IV 100 3 Intake, IV Titration 236.199 3.055 Amount Heparin Sod,Pork in 0.45% 236.199 NaCl 25,000 unit In 0.45 % NaCl 1 250ml.bag @ 12 UNITS/KG/HR 9.417 mls/hr IV .Q24H TAYLA Rx#: [id number] Insulin Regular 100 unit 3.055 In Sodium Chloride 0.9% 100 ml @ Per Protocol IV .Q0M TAYLA Rx#:[id number] Oral 478 Output: Urine 450 Estimated Blood Loss 350 Other: Voiding Method Toilet # Voids 3 1 - Exam GENERAL EXAM: Intubated, sedated 64-year-old female, on the mechanical ventilator, in no apparent distress. HEAD: Normocephalic. EYES: Sluggish reaction of pupils, equal size. NOSE: Clear with pink turbinates. THROAT: Oral endotracheal and gastric tube secured in place. No erythema or exudates. NECK: Right IJ [place]-Jeanine catheter in place. No masses, no JVD. CHEST: Sternal dressing dry and intact. Left and mediastinal chest tubes in place.. LUNGS: Equal air entry with crackles at the bilateral bases right greater than left. CVS: S1 and S2 normal with no audible murmur, regular rhythm. ABDOMEN: No hepatosplenomegaly, no guarding or rigidity. SPINE: No scoliosis or deformity SKIN: No rashes CENTRAL NERVOUS SYSTEM: Sedated, tone is normal in all 4 extremities. EXTREMITIES: Right brachial arterial line in place. There is no peripheral edema. No clubbing, no cyanosis. Peripheral pulses are intact. - Labs CBC & Chem 7: 07/04/24 13:10 07/04/24 13:10 Labs: Abnormal Lab Results - Last 24 Hours (Table) 07/03/24 07/03/24 07/03/24 Range/Units 05:33 17:08 20:00 WBC (3.8-10.6) k/uL RBC (3.80-5.40) m/uL Hgb (11.4-16.0) gm/dL Hct (34.0-46.0) % Neutrophils # (1.3-7.7) k/uL PT (10.0-12.5) sec INR (<1.2) ABG pH (7.35-7.45) ABG pCO2 (35-45) mmHg ABG pO2 (83-108) mmHg ABG Total CO2 (19-24) mmol/L ABG O2 Saturation (94-97) % Hemoglobin (11.4-16.0) gm/dL Chloride (98-107) mmol/L Creatinine (0.52-1.04) mg/dL Glucose (74-99) mg/dL POC Glucose (mg/dL) 142 H 243 H (70-110) mg/dL Calcium (8.4-10.2) mg/dL Alkaline Phosphatase (38-126) U/L Total Protein (6.3-8.2) g/dL Albumin (3.5-5.0) g/dL Crossmatch See Detail 07/04/24 07/04/24 07/04/24 Range/Units 05:31 06:30 13:10 WBC 15.2 H (3.8-10.6) k/uL RBC 2.46 L (3.80-5.40) m/uL Hgb 7.2 L D (11.4-16.0) gm/dL Hct 21.1 L (34.0-46.0) % Neutrophils # 10.8 H (1.3-7.7) k/uL PT (10.0-12.5) sec INR (<1.2) ABG pH (7.35-7.45) ABG pCO2 (35-45) mmHg ABG pO2 (83-108) mmHg ABG Total CO2 (19-24) mmol/L ABG O2 Saturation (94-97) % Hemoglobin (11.4-16.0) gm/dL Chloride (98-107) mmol/L Creatinine (0.52-1.04) mg/dL Glucose (74-99) mg/dL POC Glucose (mg/dL) 155 H 162 H (70-110) mg/dL Calcium (8.4-10.2) mg/dL Alkaline Phosphatase (38-126) U/L Total Protein (6.3-8.2) g/dL Albumin (3.5-5.0) g/dL Crossmatch 07/04/24 07/04/24 07/04/24 Range/Units 13:10 13:10 13:12 WBC (3.8-10.6) k/uL RBC (3.80-5.40) m/uL Hgb (11.4-16.0) gm/dL Hct (34.0-46.0) % Neutrophils # (1.3-7.7) k/uL PT 13.4 H (10.0-12.5) sec INR 1.3 H (<1.2) ABG pH (7.35-7.45) ABG pCO2 (35-45) mmHg ABG pO2 (83-108) mmHg ABG Total CO2 (19-24) mmol/L ABG O2 Saturation (94-97) % Hemoglobin (11.4-16.0) gm/dL Chloride 109 H (98-107) mmol/L Creatinine 0.47 L (0.52-1.04) mg/dL Glucose 139 H (74-99) mg/dL POC Glucose (mg/dL) 157 H (70-110) mg/dL Calcium 8.3 L (8.4-10.2) mg/dL Alkaline Phosphatase 28 L (38-126) U/L Total Protein 4.6 L (6.3-8.2) g/dL Albumin 3.0 L (3.5-5.0) g/dL Crossmatch 07/04/24 07/04/24 Range/Units 13:36 15:17 WBC (3.8-10.6) k/uL RBC (3.80-5.40) m/uL Hgb (11.4-16.0) gm/dL Hct (34.0-46.0) % Neutrophils # (1.3-7.7) k/uL PT (10.0-12.5) sec INR (<1.2) ABG pH 7.30 L (7.35-7.45) ABG pCO2 49 H (35-45) mmHg ABG pO2 209 H (83-108) mmHg ABG Total CO2 25 H (19-24) mmol/L ABG O2 Saturation 99.9 H (94-97) % Hemoglobin 7.1 L (11.4-16.0) gm/dL Chloride (98-107) mmol/L Creatinine (0.52-1.04) mg/dL Glucose (74-99) mg/dL POC Glucose (mg/dL) 155 H (70-110) mg/dL Calcium (8.4-10.2) mg/dL Alkaline Phosphatase (38-126) U/L Total Protein (6.3-8.2) g/dL Albumin (3.5-5.0) g/dL Crossmatch Assessment and Plan Assessment: Acute non-ST elevation myocardial infarction and found to have significant tr iple-vessel coronary artery disease. Status post coronary artery bypass grafting x 3 with a YIN to the LAD, saphenous vein graft to the OM 2, PDA. Left atrial clipping. Postoperative day #0 Mechanical ventilator management, expected outcome of surgery Family history of early coronary artery disease with her father having bypass at the age of 40 Diabetes mellitus Hyperlipidemia Lifelong non-smoker Plan: The patient was seen and evaluated Chest x-ray, ABGs, labs and medications reviewed Will plan for early extubation protocol as tolerated Continue bronchodilators Heparin for DVT prophylaxis We will continue to follow and make further recommendations based on her clinical status I have personally seen and examined the patient, performed the documentation and the assessment and plan as written. Number of minutes spent on the visit: 20 Dictation was produced using [employer] dictation software. Please excuse any grammatical, word or spelling errors.
[2024-07-04 16:42] LABS: Glucose,Whole Blood 148 mg/dL (70-110)
[2024-07-04 16:50] LABS: Basophils # (A) 0.1 k/uL (0-0.2); Basophils % (A) 1 %; Eosinophils % (A) 0 %; HCT 22.2 % (34.0-46.0); HGB 7.7 gm/dL (11.4-16.0); Lymphocytes # (A) 2.7 k/uL (1.0-4.8); Lymphocytes % (A) 14 %; MCH 29.6 pg (25.0-35.0); MCHC 34.6 g/dL (31.0-37.0); MCV 85.4 fL (80.0-100.0); Mean Platelet Volume 6.9; Monocytes # (A) 0.7 k/uL (0-1.0); Monocytes % (A) 4 %; Neutrophils # (A) 15.1 k/uL (1.3-7.7); Neutrophils % (A) 80 %; Platelet Count 392 k/uL (150-450); RBC 2.59 m/uL (3.80-5.40); RDW 12.7 % (11.5-15.5); WBC 18.9 k/uL (3.8-10.6)
[2024-07-04 17:16] LABS: ABG Base Excess -3.3 mmol/L; ABG HCO3 23 mmol/L (21-25); ABG Oxygen Saturation 97.1 % (94-97); ABG PCO2 45 mmHg (35-45); ABG PH 7.31 (7.35-7.45); ABG PO2 83 mmHg (83-108); ABG TCO2 24 mmol/L (19-24)
[2024-07-04] MEDS: IPRATROPIUM-ALBUTEROL 3 ML NEB INHALATION SCH ×2 (17:19→21:08)
--- NOTE | 2024-07-04 17:26 | PN ---
PROGRESS NOTE CHIEF COMPLAINT: Triple-vessel coronary artery disease. HISTORY OF PRESENT ILLNESS: This lady is doing well, and she is all set to go for her open-heart surgery tomorrow. PHYSICAL EXAMINATION: Her exam is unchanged. CHEST: Clear. CARDIAC: Normal. VITAL SIGNS: Normal. IMPRESSION: Triple-vessel coronary artery disease. PLAN: Surgery tomorrow. MMODL / IJN: [id number] /
[2024-07-04] MEDS: ACETAMINOPHEN IV (For NPO) 1,000 MG in EMPTY BAG 1 BAG IVPB SCH (18:15)
[2024-07-04 18:23] LABS: Glucose,Whole Blood 162 mg/dL (70-110)
[2024-07-04 19:24] LABS: Glucose,Whole Blood 147 mg/dL (70-110)
[2024-07-04 19:55] LABS: Glucose,Whole Blood 145 mg/dL (70-110)
[2024-07-04] MEDS ORDERED: AMIODARONE 450 MG in DEXTROSE 5% IN WATER 250 ML IV SCH (20:00)
[2024-07-04 20:29] LABS: Basophils % (A) 0 %; Eosinophils % (A) 0 %; HCT 22.3 % (34.0-46.0); HGB 7.6 gm/dL (11.4-16.0); Lymphocytes # (A) 1.1 k/uL (1.0-4.8); Lymphocytes % (A) 7 %; MCHC 33.9 g/dL (31.0-37.0); MCV 85.4 fL (80.0-100.0); Mean Platelet Volume 6.7; Monocytes # (A) 0.6 k/uL (0-1.0); Monocytes % (A) 4 %; Neutrophils # (A) 13.6 k/uL (1.3-7.7); Neutrophils % (A) 88 %; Platelet Count 353 k/uL (150-450); RBC 2.62 m/uL (3.80-5.40); RDW 12.8 % (11.5-15.5); WBC 15.4 k/uL (3.8-10.6)
[2024-07-04 20:59] LABS: Glucose,Whole Blood 139 mg/dL (70-110)
[2024-07-04 21:20] LABS: ABG Lactic Acid Whole Blood 2.2 mmol/L (0.5-1.6)
[2024-07-04] MEDS: METOPROLOL TARTRATE 25 MG TAB PO STA (21:25)
[2024-07-04 21:29] LABS: ABG Lactic Acid Whole Blood 3.3 mmol/L (0.5-1.6)
[2024-07-04 21:30] LABS: ABG Hematocrit 22 % (34.0-46.0); ABG Hematocrit 23 % (34.0-46.0); ABG Lactic Acid Whole Blood 2.1 mmol/L (0.5-1.6)
[2024-07-04 22:01] LABS: Glucose,Whole Blood 142 mg/dL (70-110)
[2024-07-04 22:56] LABS: Glucose,Whole Blood 137 mg/dL (70-110)
[2024-07-05 00:04] LABS: Glucose,Whole Blood 132 mg/dL (70-110)
[2024-07-05 01:00] LABS: Glucose,Whole Blood 136 mg/dL (70-110)
[2024-07-05 01:57] LABS: Glucose,Whole Blood 145 mg/dL (70-110)
[2024-07-05 03:03] LABS: Glucose,Whole Blood 133 mg/dL (70-110)
[2024-07-05] MEDS: IPRATROPIUM-ALBUTEROL 3 ML NEB INHALATION PRN (03:08)
--- NOTE | 2024-07-05 03:22 | PN ---
PROGRESS NOTE DATE OF SERVICE: 07/04/2024 CHIEF COMPLAINT: Triple-vessel coronary artery disease. HISTORY OF PRESENT ILLNESS: This lady is doing well and she is going today for her CABG. PHYSICAL EXAMINATION: CHEST: Clear. CARDIAC: Normal. No murmurs or extra sounds. ABDOMEN: Soft, nontender. IMPRESSION: 1. Triple-vessel coronary artery disease. 2. Diabetes. 3. Open-heart surgery today. MMODL / IJN: [id number] /
[2024-07-05 03:39] LABS: Basophils % (A) 0 %; Eosinophils % (A) 0 %; HCT 21.3 % (34.0-46.0); HGB 7.6 gm/dL (11.4-16.0); Lymphocytes # (A) 1.7 k/uL (1.0-4.8); Lymphocytes % (A) 12 %; MCH 29.3 pg (25.0-35.0); MCHC 35.5 g/dL (31.0-37.0); MCV 82.6 fL (80.0-100.0); Mean Platelet Volume 7.1; Monocytes # (A) 0.6 k/uL (0-1.0); Monocytes % (A) 4 %; Neutrophils # (A) 12.4 k/uL (1.3-7.7); Neutrophils % (A) 83 %; Platelet Count 372 k/uL (150-450); RBC 2.58 m/uL (3.80-5.40); RDW 13.4 % (11.5-15.5); WBC 14.9 k/uL (3.8-10.6)
[2024-07-05 04:07] LABS: Ionized Calcium 4.9 mg/dL (4.5-5.3)
[2024-07-05 04:16] LABS: ALT 31 U/L (4-34); AST 35 U/L (14-36); African American GFR (CKD) >90 (>60 ml/min/1.73 sqM); Albumin 3.7 g/dL (3.5-5.0); Alkaline Phosphatase 35 U/L (38-126); Anion Gap 9 mmol/L; Blood Urea Nitrogen 8 mg/dL (7-17); Calcium 8.9 mg/dL (8.4-10.2); Carbon Dioxide 22 mmol/L (22-30); Chloride 106 mmol/L (98-107); Glucose 115 mg/dL (74-99); Non-African American GFR(CKD) >90 (>60 ml/min/1.73 sqM); Potassium 4.4 mmol/L (3.5-5.1); Sodium 137 mmol/L (137-145); Total Bilirubin 1.2 mg/dL (0.2-1.3); Total Protein 5.4 g/dL (6.3-8.2)
[2024-07-05] MEDS: KETOROLAC 15 MG/ML 1 ML VIAL IVP STA (04:25)
[2024-07-05 05:22] LABS: Glucose,Whole Blood 130 mg/dL (70-110)
[2024-07-05] MEDS: ALBUMIN HUMAN 25% 50 ML in EMPTY BAG 1 BAG IVPB ONE ×2 (06:24→06:25)
[2024-07-05] MEDS: ALBUMIN HUMAN 5% 500 ML in EMPTY BAG 1 BAG IVPB ONE ×6 (06:25→06:26)
[2024-07-05] MEDS: CALCIUM CHLORIDE 100 MG/ML 10 ML SYRINGE IVP ONE (06:26)
[2024-07-05] MEDS: ceFAZolin 1,000 MG in SODIUM CHLORIDE 0.9% IRRIGATIO 1,000 ML IRRIGATION ONE (06:26)
[2024-07-05] MEDS: CLEVIDIPINE BUTYRATE 25 MG in EMPTY BAG 1 BAG IV SCH (06:27)
[2024-07-05] MEDS: HEPARIN SODIUM 1,000 UN/ML (10ML VL) IV ONE (06:27)
[2024-07-05] MEDS: HEPARIN SODIUM,PORCINE (1 ML) 5,000 UNIT in SODIUM CHLORIDE 0.9% 500 ML 500 ML IV ONE (06:27)
[2024-07-05] MEDS: CHLORHEXIDINE GLUCONATE 15 ML CUP MUCOUS MEM ONE (06:27)
[2024-07-05] MEDS: MANNITOL 25% 12.5 GM/50 ML VIAL IV ONE ×2 (06:28)
[2024-07-05] MEDS: MAGNESIUM SULFATE 16.24 MEQ in EMPTY SYRINGE 1 SYR IV ONE (06:28)
[2024-07-05] MEDS: NITROGLYCERIN-D5W PMX 50 MG in DEXTROSE/WATER 1 250ML.BAG IV SCH (06:29)
[2024-07-05] MEDS: PHENYLEPHRINE 40 MG in SODIUM CHLORIDE 0.9% 250 ML IV ONE (06:29)
[2024-07-05] MEDS: PAPAVERINE 360 MG in SODIUM CHLORIDE 0.9% 90 ML IV ONE (06:29)
[2024-07-05] MEDS: NITROGLYCERIN-D5W PMX 25 MG/250 ML BTL IV ONE (06:29)
[2024-07-05] MEDS: PROTAMINE SULFATE 250 MG in EMPTY BAG 1 BAG IV ONE (06:29)
[2024-07-05] MEDS: PROTAMINE SULFATE 10 MG/ML 25 ML VIAL IV ONE (06:29)
[2024-07-05] MEDS: SODIUM BICARB 8.4% 50 ML SYR (1 MEQ/ML) IV ONE (06:29)
[2024-07-05] MEDS: TRANEXAMIC ACID 2,000 MG in SODIUM CHLORIDE 0.9% 80 ML IV ONE (06:30)
[2024-07-05] MEDS: EPINEPHrine 4 MG in DEXTROSE 5% IN WATER 250 ML IV STA (06:31)
--- NOTE | 2024-07-05 06:55 | XR ---
EXAMINATION TYPE: XR chest 1V portable DATE OF EXAM: 07/05/2024 CLINICAL HISTORY: Postoperative cardiac surgery. TECHNIQUE: Single AP portable upright view of the chest is obtained. Comparison: Chest x-ray from one day earlier. FINDINGS: Interval extubation with removal of endotracheal and orogastric tubes. There is stable Rig ht internal jugular [place]-Jeanine catheter. There is stable mediastinal drainage catheter and left-sided chest tube. Persistent overlying sternal wires and left atrial appendage clip are seen. There is improving central vascular congestion and small bilateral pleural effusions. No pneumothorax clearly identified. Cardiac silhouette size is mildly enlarged. Osseous structures are intact. IMPRESSION: 1. Interval extubation. Persistent but improving central vascular congestion and small bilateral pleu ral effusions. [facility], , 07/05/2024 6:53 AM
[2024-07-05 06:59] LABS: Glucose,Whole Blood 130 mg/dL (70-110)
--- NOTE | 2024-07-05 07:31 | P.PN ---
Subjective Progress Note Date: 07/05/24 Principal diagnosis: Triple-vessel coronary artery disease, non-STEMI this admission. History of insulin-dependent diabetes uncontrolled with hyperglycemia, hyperlipidemia, lifelong non-smoker, family history of premature coronary artery disease, father had CABG at 40 years old POD #1 off-pump coronary artery bypass grafting 3 with YIN to LAD, SVG's to second obtuse marginal and posterior descending coronary arteries.Ligation of the left atrial appendage with 35 mm AtriCure clip, endoscopic vein harvest of the right greater saphenous vein, placement of Right femoral arterial line Postoperative acute blood loss anemia, expected given hemodilution Hypotension secondary to fluid shifting The patient was seen and examined this morning sitting up in a recliner in the intensive care unit in no acute distress. She was extubated last night at 17:33. Currently sinus rhythm with heart rate in the 90s, hypotensive especially after getting up to the bedside chair. States expected postsurgical pain is controlled with current medication regimen, denies shortness of breath. Patient appears very sleepy. Patient was on Primacor coming out of OR yesterday which has since been weaned off. She did receive Lopressor last night which helped with tachycardia but did not help with her blood pressure. She has received 1 L albumin. X-ray, labs reviewed with Dr. Samayoa. Right internal jugular [place]/Cordis, right brachial arterial line, mediastinal/left pleural chest tubes all present. No other new concerns. Objective - Vital Signs Vital signs: Vital Signs Temp 100.4 F H 07/05/24 04:00 Pulse 93 07/05/24 07:00 Resp 20 07/05/24 07:00 BP 80/54 07/05/24 07:00 Pulse Ox 96 07/05/24 07:00 FiO2 40 07/04/24 16:40 Intake & Output 07/04/24 07/05/24 07/05/24 18:59 06:59 18:59 Intake Total 124.297 9650.440 579 Output Total 1525 1113 50 Balance -542.188 552.440 529 Weight 81.919 kg Intake: IV 974 1648 579 0.9% 250 600 50 Albumin Human 5% 250 ml 250 750 500 In Empty Bag 1 bag @ 250 mls/hr IVPB Q1HR PRN Rx#: [id number] CO/CI 120 190 20 Magnesium Sulfate-D5w Pmx 100 1 gm In Dextrose/Water 1 100ml.bag @ 100 mls/hr IVPB ONCE ONE Rx#: [id number] Pressure Bags 51 108 9 Tylenol 100 ceFAZolin 2 gm In Sodium 100 Chloride 0.9% 50 ml @ 100 mls/hr IVPB Q8HR [facility] Rx# :[id number] Intake, IV Titration 8.812 17.440 Amount Insulin Regular 100 unit 8.812 17.440 In Sodium Chloride 0.9% 100 ml @ Per Protocol IV .Q0M [facility] Rx#:[id number] Output: Chest Tube Drainage 145 455 30 Chest Tube Left Pleural 65 235 10 Chest Tube Mediastinal 80 220 20 Urine 1030 658 20 Estimated Blood Loss 350 Other: Voiding Method Indwelling Catheter Indwelling Catheter ABP, PAP, CO, CI - Last Documented Arterial Blood Pressure 76/43 Pulmonary Artery Pressure 26/14 Cardiac Output 3.3 Cardiac Index 1.8 - Exam CONSTITUTIONAL: Appears comfortable, cooperative, no acute distress RESPIRATORY: Lungs sounds diminished in the bases bilaterally. Respirations even, nonlabored. Currently on 8 L high flow nasal cannula with oxygen saturation 96%. Able to achieve 500-750 mL on incentive spirometry. Strong cough. CARDIOVASCULAR: S1, S2 present. Regular rate and rhythm, sinus rhythm on telemetry. Sternum stable. Palpable peripheral pulses bilaterally. Trace generalized edema present. No calf pain or tenderness noted. Heart hugger in place with patient demonstrating appropriate use. Antiembolism stockings, SCDs present. GASTROINTESTINAL: Abdomen soft, nontender, nondistended. Hypoactive bowel sounds present 4 quadrants. Tolerating minimal clear liquids. Denies flatus GENITOURINARY: Daniel present draining clear, yellow urine. Output overnight 30-60 mL per hour, dropped down to 15 mL/h this morning INTEGUMENTARY: Skin is warm and dry. Anterior chest incision well approximated and covered with dry intact dressing. Right lower extremity EVH site well approximated without redness or drainage. NEUROLOGIC: Cranial nerves II through XII intact MUSKULOSKELETAL: Able to move all extremities, strength equal bilaterally PSYCHIATRIC: Alert and oriented to person place and time, appropriate affect, intact judgment and insight INVASIVE LINES AND TUBES: Mediastinal/left pleural chest tubes present and connected to wall suction, no air leaks present. Mediastinal tube with 120 mL serosanguineous drainage overnight, 300 mL since surgery. Left pleural chest tube with 180 mL serosanguineous drainage overnight, 300 mL since surgery. Right internal jugular [place]/Cordis, right brachial arterial line present. Last CO/CI 3.3/1.8, PA , CVP 9. - Allied health notes Allied health notes reviewed: nursing - Labs CBC & Chem 7: 07/05/24 03:10 07/05/24 03:10 Labs: Abnormal Lab Results - Last 24 Hours (Table) 07/03/24 07/04/24 07/04/24 Range/Units 05:33 08:30 08:30 WBC (3.8-10.6) k/uL RBC (3.80-5.40) m/uL Hgb (11.4-16.0) gm/dL Hct (34.0-46.0) % Neutrophils # (1.3-7.7) k/uL PT (10.0-12.5) sec INR (<1.2) ABG pH (7.35-7.45) ABG pCO2 34 L (35-45) mmHg ABG pO2 407 H 149 H (83-108) mmHg ABG Total CO2 (19-24) mmol/L ABG O2 Saturation >99.4 H 99.0 H (94-97) % ABG Hematocrit (34.0-46.0) % ABG Potassium (3.4-4.5) mmol/L ABG Glucose 150 H 124 H (75-99) mg/dL ABG Lactic Acid 2.2 H* 3.3 H* (0.5-1.6) mmol/L Hemoglobin 11.1 L (11.4-16.0) gm/dL Chloride (98-107) mmol/L Creatinine (0.52-1.04) mg/dL Glucose (74-99) mg/dL POC Glucose (mg/dL) (70-110) mg/dL Calcium (8.4-10.2) mg/dL Alkaline Phosphatase (38-126) U/L Total Protein (6.3-8.2) g/dL Albumin (3.5-5.0) g/dL Arterial Blood Potassium (3.4-4.5) mmol/L Arterial Blood Glucose 150 H 124 H (75-99) mg/dL Crossmatch See Detail 0207/04/24 07/04/24 Range/Units 08:30 08:30 08:30 WBC (3.8-10.6) k/uL RBC (3.80-5.40) m/uL Hgb (11.4-16.0) gm/dL Hct (34.0-46.0) % Neutrophils # (1.3-7.7) k/uL PT (10.0-12.5) sec INR (<1.2) ABG pH 7.34 L (7.35-7.45) ABG pCO2 (35-45) mmHg ABG pO2 391 H 177 H 82 L (83-108) mmHg ABG Total CO2 (19-24) mmol/L ABG O2 Saturation 99.4 H 99.0 H 98.2 H (94-97) % ABG Hematocrit 25 L 23 L 22 L (34.0-46.0) % ABG Potassium 3.2 L (3.4-4.5) mmol/L ABG Glucose 187 H 164 H 147 H (75-99) mg/dL ABG Lactic Acid 1.8 H 2.1 H 2.1 H (0.5-1.6) mmol/L Hemoglobin 8.1 L 7.6 L 7.3 L (11.4-16.0) gm/dL Chloride (98-107) mmol/L Creatinine (0.52-1.04) mg/dL Glucose (74-99) mg/dL POC Glucose (mg/dL) (70-110) mg/dL Calcium (8.4-10.2) mg/dL Alkaline Phosphatase (38-126) U/L Total Protein (6.3-8.2) g/dL Albumin (3.5-5.0) g/dL Arterial Blood Potassium 3.2 L (3.4-4.5) mmol/L Arterial Blood Glucose 187 H 164 H 147 H (75-99) mg/dL Crossmatch 07/04/24 07/04/24 07/04/24 Range/Units 13:10 13:10 13:10 WBC 15.2 H (3.8-10.6) k/uL RBC 2.46 L (3.80-5.40) m/uL Hgb 7.2 L D (11.4-16.0) gm/dL Hct 21.1 L (34.0-46.0) % Neutrophils # 10.8 H (1.3-7.7) k/uL PT 13.4 H (10.0-12.5) sec INR 1.3 H (<1.2) ABG pH (7.35-7.45) ABG pCO2 (35-45) mmHg ABG pO2 (83-108) mmHg ABG Total CO2 (19-24) mmol/L ABG O2 Saturation (94-97) % ABG Hematocrit (34.0-46.0) % ABG Potassium (3.4-4.5) mmol/L ABG Glucose (75-99) mg/dL ABG Lactic Acid (0.5-1.6) mmol/L Hemoglobin (11.4-16.0) gm/dL Chloride 109 H (98-107) mmol/L Creatinine 0.47 L (0.52-1.04) mg/dL Glucose 139 H (74-99) mg/dL POC Glucose (mg/dL) (70-110) mg/dL Calcium 8.3 L (8.4-10.2) mg/dL Alkaline Phosphatase 28 L (38-126) U/L Total Protein 4.6 L (6.3-8.2) g/dL Albumin 3.0 L (3.5-5.0) g/dL Arterial Blood Potassium (3.4-4.5) mmol/L Arterial Blood Glucose (75-99) mg/dL Crossmatch 07/04/24 07/04/24 07/04/24 Range/Units 13:12 13:36 15:17 WBC (3.8-10.6) k/uL RBC (3.80-5.40) m/uL Hgb (11.4-16.0) gm/dL Hct (34.0-46.0) % Neutrophils # (1.3-7.7) k/uL PT (10.0-12.5) sec INR (<1.2) ABG pH 7.30 L (7.35-7.45) ABG pCO2 49 H (35-45) mmHg ABG pO2 209 H (83-108) mmHg ABG Total CO2 25 H (19-24) mmol/L ABG O2 Saturation 99.9 H (94-97) % ABG Hematocrit (34.0-46.0) % ABG Potassium (3.4-4.5) mmol/L ABG Glucose (75-99) mg/dL ABG Lactic Acid (0.5-1.6) mmol/L Hemoglobin 7.1 L (11.4-16.0) gm/dL Chloride (98-107) mmol/L Creatinine (0.52-1.04) mg/dL Glucose (74-99) mg/dL POC Glucose (mg/dL) 157 H 155 H (70-110) mg/dL Calcium (8.4-10.2) mg/dL Alkaline Phosphatase (38-126) U/L Total Protein (6.3-8.2) g/dL Albumin (3.5-5.0) g/dL Arterial Blood Potassium (3.4-4.5) mmol/L Arterial Blood Glucose (75-99) mg/dL Crossmatch 07/04/24 07/04/24 07/04/24 Range/Units 16:39 16:40 17:13 WBC 18.9 H (3.8-10.6) k/uL RBC 2.59 L (3.80-5.40) m/uL Hgb 7.7 L (11.4-16.0) gm/dL Hct 22.2 L (34.0-46.0) % Neutrophils # 15.1 H (1.3-7.7) k/uL PT (10.0-12.5) sec INR (<1.2) ABG pH 7.31 L (7.35-7.45) ABG pCO2 (35-45) mmHg ABG pO2 (83-108) mmHg ABG Total CO2 (19-24) mmol/L ABG O2 Saturation 97.1 H (94-97) % ABG Hematocrit (34.0-46.0) % ABG Potassium (3.4-4.5) mmol/L ABG Glucose (75-99) mg/dL ABG Lactic Acid (0.5-1.6) mmol/L Hemoglobin 7.8 L (11.4-16.0) gm/dL Chloride (98-107) mmol/L Creatinine (0.52-1.04) mg/dL Glucose (74-99) mg/dL POC Glucose (mg/dL) 148 H (70-110) mg/dL Calcium (8.4-10.2) mg/dL Alkaline Phosphatase (38-126) U/L Total Protein (6.3-8.2) g/dL Albumin (3.5-5.0) g/dL Arterial Blood Potassium (3.4-4.5) mmol/L Arterial Blood Glucose (75-99) mg/dL Crossmatch 07/04/24 07/04/24 07/04/24 Range/Units 18:09 19:22 19:53 WBC (3.8-10.6) k/uL RBC (3.80-5.40) m/uL Hgb (11.4-16.0) gm/dL Hct (34.0-46.0) % Neutrophils # (1.3-7.7) k/uL PT (10.0-12.5) sec INR (<1.2) ABG pH (7.35-7.45) ABG pCO2 (35-45) mmHg ABG pO2 (83-108) mmHg ABG Total CO2 (19-24) mmol/L ABG O2 Saturation (94-97) % ABG Hematocrit (34.0-46.0) % ABG Potassium (3.4-4.5) mmol/L ABG Glucose (75-99) mg/dL ABG Lactic Acid (0.5-1.6) mmol/L Hemoglobin (11.4-16.0) gm/dL Chloride (98-107) mmol/L Creatinine (0.52-1.04) mg/dL Glucose (74-99) mg/dL POC Glucose (mg/dL) 162 H 147 H 145 H (70-110) mg/dL Calcium (8.4-10.2) mg/dL Alkaline Phosphatase (38-126) U/L Total Protein (6.3-8.2) g/dL Albumin (3.5-5.0) g/dL Arterial Blood Potassium (3.4-4.5) mmol/L Arterial Blood Glucose (75-99) mg/dL Crossmatch 07/04/24 07/04/24 07/04/24 Range/Units 19:54 20:58 21:59 WBC 15.4 H (3.8-10.6) k/uL RBC 2.62 L (3.80-5.40) m/uL Hgb 7.6 L (11.4-16.0) gm/dL Hct 22.3 L (34.0-46.0) % Neutrophils # 13.6 H (1.3-7.7) k/uL PT (10.0-12.5) sec INR (<1.2) ABG pH (7.35-7.45) ABG pCO2 (35-45) mmHg ABG pO2 (83-108) mmHg ABG Total CO2 (19-24) mmol/L ABG O2 Saturation (94-97) % ABG Hematocrit (34.0-46.0) % ABG Potassium (3.4-4.5) mmol/L ABG Glucose (75-99) mg/dL ABG Lactic Acid (0.5-1.6) mmol/L Hemoglobin (11.4-16.0) gm/dL Chloride (98-107) mmol/L Creatinine (0.52-1.04) mg/dL Glucose (74-99) mg/dL POC Glucose (mg/dL) 139 H 142 H (70-110) mg/dL Calcium (8.4-10.2) mg/dL Alkaline Phosphatase (38-126) U/L Total Protein (6.3-8.2) g/dL Albumin (3.5-5.0) g/dL Arterial Blood Potassium (3.4-4.5) mmol/L Arterial Blood Glucose (75-99) mg/dL Crossmatch 07/04/24 07/05/24 07/05/24 Range/Units 22:55 00:02 00:58 WBC (3.8-10.6) k/uL RBC (3.80-5.40) m/uL Hgb (11.4-16.0) gm/dL Hct (34.0-46.0) % Neutrophils # (1.3-7.7) k/uL PT (10.0-12.5) sec INR (<1.2) ABG pH (7.35-7.45) ABG pCO2 (35-45) mmHg ABG pO2 (83-108) mmHg ABG Total CO2 (19-24) mmol/L ABG O2 Saturation (94-97) % ABG Hematocrit (34.0-46.0) % ABG Potassium (3.4-4.5) mmol/L ABG Glucose (75-99) mg/dL ABG Lactic Acid (0.5-1.6) mmol/L Hemoglobin (11.4-16.0) gm/dL Chloride (98-107) mmol/L Creatinine (0.52-1.04) mg/dL Glucose (74-99) mg/dL POC Glucose (mg/dL) 137 H 132 H 136 H (70-110) mg/dL Calcium (8.4-10.2) mg/dL Alkaline Phosphatase (38-126) U/L Total Protein (6.3-8.2) g/dL Albumin (3.5-5.0) g/dL Arterial Blood Potassium (3.4-4.5) mmol/L Arterial Blood Glucose (75-99) mg/dL Crossmatch 07/05/24 07/05/24 07/05/24 Range/Units 01:56 03:01 03:10 WBC 14.9 H (3.8-10.6) k/uL RBC 2.58 L (3.80-5.40) m/uL Hgb 7.6 L (11.4-16.0) gm/dL Hct 21.3 L (34.0-46.0) % Neutrophils # 12.4 H (1.3-7.7) k/uL PT (10.0-12.5) sec INR (<1.2) ABG pH (7.35-7.45) ABG pCO2 (35-45) mmHg ABG pO2 (83-108) mmHg ABG Total CO2 (19-24) mmol/L ABG O2 Saturation (94-97) % ABG Hematocrit (34.0-46.0) % ABG Potassium (3.4-4.5) mmol/L ABG Glucose (75-99) mg/dL ABG Lactic Acid (0.5-1.6) mmol/L Hemoglobin (11.4-16.0) gm/dL Chloride (98-107) mmol/L Creatinine (0.52-1.04) mg/dL Glucose (74-99) mg/dL POC Glucose (mg/dL) 145 H 133 H (70-110) mg/dL Calcium (8.4-10.2) mg/dL Alkaline Phosphatase (38-126) U/L Total Protein (6.3-8.2) g/dL Albumin (3.5-5.0) g/dL Arterial Blood Potassium (3.4-4.5) mmol/L Arterial Blood Glucose (75-99) mg/dL Crossmatch 07/05/24 07/05/24 07/05/24 Range/Units 03:10 05:09 06:57 WBC (3.8-10.6) k/uL RBC (3.80-5.40) m/uL Hgb (11.4-16.0) gm/dL Hct (34.0-46.0) % Neutrophils # (1.3-7.7) k/uL PT (10.0-12.5) sec INR (<1.2) ABG pH (7.35-7.45) ABG pCO2 (35-45) mmHg ABG pO2 (83-108) mmHg ABG Total CO2 (19-24) mmol/L ABG O2 Saturation (94-97) % ABG Hematocrit (34.0-46.0) % ABG Potassium (3.4-4.5) mmol/L ABG Glucose (75-99) mg/dL ABG Lactic Acid (0.5-1.6) mmol/L Hemoglobin (11.4-16.0) gm/dL Chloride (98-107) mmol/L Creatinine 0.47 L (0.52-1.04) mg/dL Glucose 115 H (74-99) mg/dL POC Glucose (mg/dL) 130 H 130 H (70-110) mg/dL Calcium (8.4-10.2) mg/dL Alkaline Phosphatase 35 L (38-126) U/L Total Protein 5.4 L (6.3-8.2) g/dL Albumin (3.5-5.0) g/dL Arterial Blood Potassium (3.4-4.5) mmol/L Arterial Blood Glucose (75-99) mg/dL Crossmatch - Imaging and Cardiology Chest x-ray: report reviewed, image reviewed Assessment and Plan Assessment: Triple-vessel coronary artery disease, non-STEMI this admission, status post three-vessel off-pump CABG Chest pain, shortness of breath secondary to above Postoperative acute blood loss anemia, expected given hemodilution Hypotension secondary to fluid shifting History of insulin-dependent diabetes with uncontrolled hyperglycemia, hemoglo bin A1c 9.8% Hyperlipidemia, cholesterol 206, LDL 124, triglycerides 239 Lifelong non-smoker, preoperative FEV1 90% of predicted Family history of premature coronary artery disease, father had CABG at 40 years old Plan: Continue to maximize medical therapy with aspirin, statin, Plavix, beta-marcia. Will increase beta-marcia therapy as tolerated Primacor discontinued yesterday, IV nitro stopped this morning. Will start low- dose dopamine for blood pressure and renal perfusion Wean oxygen as tolerated. Encourage incentive spirometry use 10 times every hour while awake. Bronchodilators per pulmonology Increase activity as tolerated. PT/OT/cardiac rehab consulted Will monitor daily labs and x-rays. Electrolyte replacement per protocol GI/DVT prophylaxis Pain control per current medication regimen Insulin management per internal medicine. Patient should remain on IV insulin for 48 hours, then may transition to subcutaneous per protocol Will continue [place]/Cordis for now Continue chest tubes for another 24 hours, monitor record output Continue Daniel catheter for another 24 hours, continue to monitor and record strict accurate intake and output Daily weights More recommendations to follow based on patient's progress
[2024-07-05] MEDS: DOPamine DRIP 800 MG in DEXTROSE/WATER 1 250ML.BAG IV SCH (07:37)
[2024-07-05] MEDS: PANTOPRAZOLE 40 MG/10 ML VIAL IVP SCH (08:05)
[2024-07-05] MEDS: METOCLOPRAMIDE 5 MG/ML 2 ML VIAL IVP PRN (08:26)
[2024-07-05 08:40] LABS: Glucose,Whole Blood 164 mg/dL (70-110)
[2024-07-05 08:57] LABS: ABG Base Excess -2.4 mmol/L; ABG HCO3 23 mmol/L (21-25); ABG PCO2 39 mmHg (35-45); ABG PH 7.37 (7.35-7.45); ABG PO2 61 mmHg (83-108); ABG TCO2 24 mmol/L (19-24)
[2024-07-05] MEDS ORDERED: bisacodyL 10 MG SUPP RECTAL PRN (09:00)
[2024-07-05] MEDS: METOPROLOL TARTRATE 12.5 MG TAB PO SCH (09:31)
[2024-07-05 10:06] LABS: Glucose,Whole Blood 167 mg/dL (70-110)
[2024-07-05] MEDS: ASPIRIN 325 MG TAB PO SCH (10:06)
[2024-07-05 11:26] LABS: Glucose,Whole Blood 113 mg/dL (70-110)
[2024-07-05] MEDS: ATORVASTATIN 40 MG TAB PO SCH (11:26)
[2024-07-05] MEDS: CLOPIDOGREL 75 MG TAB PO SCH (11:26)
--- NOTE | 2024-07-05 11:40 | P.PN ---
Subjective Progress Note Date: 07/05/24 Synopsis: 64-year-old with past medical history of diabetes hypertension, family history of CAD, presented to [facility] because of intermittent substernal chest pressure. On admission she was found to be in NSTEMI and had echocardiogram showed an EF of 50%. 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 For this she was transferred to [facility] to undergo CABG. She underwent CABG on 07/04/2024 with a uneventful course intraoperatively. Progress note 07/05/2024 Postop day 1 after CABG. Coming along well, denies any new cardiovascular symptoms. Blood pressure was low for which she received IV albumin 1 L and is kept on dopamine drip. Currently hemodynamically stable on this regimen. Ap propriate urine output. Labs shows hemoglobin 7.6, BUN 8, creatinine 0.7 BP 104/71, heart rate 95 beats minute, sinus rhythm on telemetry. PHYSICAL EXAMINATION Vital signs reviewed. Head: Normocephalic. Eyes: Sclerae nonicteric. Neck: Brisk carotid upstroke, no jugular venous distention. Lungs: Clear to auscultation. Heart: Regular rate and rhythm, S1-S2, no S3, no murmur or rub. Abdomen: Soft nontender, bowel sounds present, Extremities: No edema, Neuro: Alert, oriented, no focal neurological deficits. Detailed neuro exam was not performed. ASSESSMENT Triple-vessel CABG, YIN to LAD, SVG to OM2, PDA, left atrial appendage ligation NSTEMI on admission, cardiac cath showed multivessel disease. Postoperative acute blood loss anemia, expected given hemodilution Hypotension secondary to fluid shifting PLAN Continue supportive care, continue IV dopamine drip Fluids and albumin as per surgical team Continue telemetry monitoring, urine output, electrolytes close hemodynamic monitoring. Keep [place] catheter in place until patient is off pressors. Clifton Umana MD, FACC, RPVI Thank you for allowing [facility] to participate in this patient's care. Please contact us in case of any followup questions. Objective - Vital Signs Vital signs: Vital Signs Temp 98.1 F 07/05/24 08:00 Pulse 91 07/05/24 11:30 Resp 19 07/05/24 11:30 BP 91/61 07/05/24 11:00 Pulse Ox 100 07/05/24 11:30 FiO2 90 07/05/24 11:38 Intake & Output 07/04/24 07/05/24 07/05/24 18:59 06:59 18:59 Intake Total 434.887 1477.440 851.867 Output Total 1525 1113 405 Balance -542.188 552.440 446.867 Weight 81.919 kg Intake: IV 974 1648 835 0.9% 250 600 250 Albumin Human 5% 250 ml 250 750 500 In Empty Bag 1 bag @ 250 mls/hr IVPB Q1HR PRN Rx#: [id number] CO/CI 120 190 40 Magnesium Sulfate-D5w Pmx 100 1 gm In Dextrose/Water 1 100ml.bag @ 100 mls/hr IVPB ONCE ONE Rx#: [id number] Pressure Bags 51 108 45 Tylenol 100 ceFAZolin 2 gm In Sodium 100 Chloride 0.9% 50 ml @ 100 mls/hr IVPB Q8HR [facility] Rx# :[id number] Intake, IV Titration 8.812 17.440 16.867 Amount Insulin Regular 100 unit 8.812 17.440 16.867 In Sodium Chloride 0.9% 100 ml @ Per Protocol IV .Q0M [facility] Rx#:[id number] Output: Chest Tube Drainage 145 455 140 Chest Tube Left Pleural 65 235 50 Chest Tube Mediastinal 80 220 90 Urine 1030 658 265 Estimated Blood Loss 350 Other: Voiding Method Indwelling Catheter Indwelling Catheter ABP, PAP, CO, CI - Last Documented Arterial Blood Pressure 99/52 Pulmonary Artery Pressure 30/19 Cardiac Output 4.7 Cardiac Index 2.5 - Labs CBC & Chem 7: 07/05/24 03:10 07/05/24 03:10 Labs: Abnormal Lab Results - Last 24 Hours (Table) 07/03/24 07/04/24 07/04/24 Range/Units 05:33 08:30 08:30 WBC (3.8-10.6) k/uL RBC (3.80-5.40) m/uL Hgb (11.4-16.0) gm/dL Hct (34.0-46.0) % Neutrophils # (1.3-7.7) k/uL PT (10.0-12.5) sec INR (<1.2) ABG pH (7.35-7.45) ABG pCO2 34 L (35-45) mmHg ABG pO2 407 H 149 H (83-108) mmHg ABG Total CO2 (19-24) mmol/L ABG O2 Saturation >99.4 H 99.0 H (94-97) % ABG Hematocrit (34.0-46.0) % ABG Potassium (3.4-4.5) mmol/L ABG Glucose 150 H 124 H (75-99) mg/dL ABG Lactic Acid 2.2 H* 3.3 H* (0.5-1.6) mmol/L Hemoglobin 11.1 L (11.4-16.0) gm/dL Chloride (98-107) mmol/L Creatinine (0.52-1.04) mg/dL Glucose (74-99) mg/dL POC Glucose (mg/dL) (70-110) mg/dL Calcium (8.4-10.2) mg/dL Alkaline Phosphatase (38-126) U/L Total Protein (6.3-8.2) g/dL Albumin (3.5-5.0) g/dL Arterial Blood Potassium (3.4-4.5) mmol/L Arterial Blood Glucose 150 H 124 H (75-99) mg/dL Crossmatch See Detail 07/04/24 07/04/24 07/04/24 Range/Units 08:30 08:30 08:30 WBC (3.8-10.6) k/uL RBC (3.80-5.40) m/uL Hgb (11.4-16.0) gm/dL Hct (34.0-46.0) % Neutrophils # (1.3-7.7) k/uL PT (10.0-12.5) sec INR (<1.2) ABG pH 7.34 L (7.35-7.45) ABG pCO2 (35-45) mmHg ABG pO2 391 H 177 H 82 L (83-108) mmHg ABG Total CO2 (19-24) mmol/L ABG O2 Saturation 99.4 H 99.0 H 98.2 H (94-97) % ABG Hematocrit 25 L 23 L 22 L (34.0-46.0) % ABG Potassium 3.2 L (3.4-4.5) mmol/L ABG Glucose 187 H 164 H 147 H (75-99) mg/dL ABG Lactic Acid 1.8 H 2.1 H 2.1 H (0.5-1.6) mmol/L Hemoglobin 8.1 L 7.6 L 7.3 L (11.4-16.0) gm/dL Chloride (98-107) mmol/L Creatinine (0.52-1.04) mg/dL Glucose (74-99) mg/dL POC Glucose (mg/dL) (70-110) mg/dL Calcium (8.4-10.2) mg/dL Alkaline Phosphatase (38-126) U/L Total Protein (6.3-8.2) g/dL Albumin (3.5-5.0) g/dL Arterial Blood Potassium 3.2 L (3.4-4.5) mmol/L Arterial Blood Glucose 187 H 164 H 147 H (75-99) mg/dL Crossmatch 07/04/24 07/04/24 07/04/24 Range/Units 13:10 13:10 13:10 WBC 15.2 H (3.8-10.6) k/uL RBC 2.46 L (3.80-5.40) m/uL Hgb 7.2 L D (11.4-16.0) gm/dL Hct 21.1 L (34.0-46.0) % Neutrophils # 10.8 H (1.3-7.7) k/uL PT 13.4 H (10.0-12.5) sec INR 1.3 H (<1.2) ABG pH (7.35-7.45) ABG pCO2 (35-45) mmHg ABG pO2 (83-108) mmHg ABG Total CO2 (19-24) mmol/L ABG O2 Saturation (94-97) % ABG Hematocrit (34.0-46.0) % ABG Potassium (3.4-4.5) mmol/L ABG Glucose (75-99) mg/dL ABG Lactic Acid (0.5-1.6) mmol/L Hemoglobin (11.4-16.0) gm/dL Chloride 109 H (98-107) mmol/L Creatinine 0.47 L (0.52-1.04) mg/dL Glucose 139 H (74-99) mg/dL POC Glucose (mg/dL) (70-110) mg/dL Calcium 8.3 L (8.4-10.2) mg/dL Alkaline Phosphatase 28 L (38-126) U/L Total Protein 4.6 L (6.3-8.2) g/dL Albumin 3.0 L (3.5-5.0) g/dL Arterial Blood Potassium (3.4-4.5) mmol/L Arterial Blood Glucose (75-99) mg/dL Crossmatch 07/04/24 07/04/24 07/04/24 Range/Units 13:12 13:36 15:17 WBC (3.8-10.6) k/uL RBC (3.80-5.40) m/uL Hgb (11.4-16.0) gm/dL Hct (34.0-46.0) % Neutrophils # (1.3-7.7) k/uL PT (10.0-12.5) sec INR (<1.2) ABG pH 7.30 L (7.35-7.45) ABG pCO2 49 H (35-45) mmHg ABG pO2 209 H (83-108) mmHg ABG Total CO2 25 H (19-24) mmol/L ABG O2 Saturation 99.9 H (94-97) % ABG Hematocrit (34.0-46.0) % ABG Potassium (3.4-4.5) mmol/L ABG Glucose (75-99) mg/dL ABG Lactic Acid (0.5-1.6) mmol/L Hemoglobin 7.1 L (11.4-16.0) gm/dL Chloride (98-107) mmol/L Creatinine (0.52-1.04) mg/dL Glucose (74-99) mg/dL POC Glucose (mg/dL) 157 H 155 H (70-110) mg/dL Calcium (8.4-10.2) mg/dL Alkaline Phosphatase (38-126) U/L Total Protein (6.3-8.2) g/dL Albumin (3.5-5.0) g/dL Arterial Blood Potassium (3.4-4.5) mmol/L Arterial Blood Glucose (75-99) mg/dL Crossmatch 07/04/24 07/04/24 07/04/24 Range/Units 16:39 16:40 17:13 WBC 18.9 H (3.8-10.6) k/uL RBC 2.59 L (3.80-5.40) m/uL Hgb 7.7 L (11.4-16.0) gm/dL Hct 22.2 L (34.0-46.0) % Neutrophils # 15.1 H (1.3-7.7) k/uL PT (10.0-12.5) sec INR (<1.2) ABG pH 7.31 L (7.35-7.45) ABG pCO2 (35-45) mmHg ABG pO2 (83-108) mmHg ABG Total CO2 (19-24) mmol/L ABG O2 Saturation 97.1 H (94-97) % ABG Hematocrit (34.0-46.0) % ABG Potassium (3.4-4.5) mmol/L ABG Glucose (75-99) mg/dL ABG Lactic Acid (0.5-1.6) mmol/L Hemoglobin 7.8 L (11.4-16.0) gm/dL Chloride (98-107) mmol/L Creatinine (0.52-1.04) mg/dL Glucose (74-99) mg/dL POC Glucose (mg/dL) 148 H (70-110) mg/dL Calcium (8.4-10.2) mg/dL Alkaline Phosphatase (38-126) U/L Total Protein (6.3-8.2) g/dL Albumin (3.5-5.0) g/dL Arterial Blood Potassium (3.4-4.5) mmol/L Arterial Blood Glucose (75-99) mg/dL Crossmatch 07/04/24 07/04/24 07/04/24 Range/Units 18:09 19:22 19:53 WBC (3.8-10.6) k/uL RBC (3.80-5.40) m/uL Hgb (11.4-16.0) gm/dL Hct (34.0-46.0) % Neutrophils # (1.3-7.7) k/uL PT (10.0-12.5) sec INR (<1.2) ABG pH (7.35-7.45) ABG pCO2 (35-45) mmHg ABG pO2 (83-108) mmHg ABG Total CO2 (19-24) mmol/L ABG O2 Saturation (94-97) % ABG Hematocrit (34.0-46.0) % ABG Potassium (3.4-4.5) mmol/L ABG Glucose (75-99) mg/dL ABG Lactic Acid (0.5-1.6) mmol/L Hemoglobin (11.4-16.0) gm/dL Chloride (98-107) mmol/L Creatinine (0.52-1.04) mg/dL Glucose (74-99) mg/dL POC Glucose (mg/dL) 162 H 147 H 145 H (70-110) mg/dL Calcium (8.4-10.2) mg/dL Alkaline Phosphatase (38-126) U/L Total Protein (6.3-8.2) g/dL Albumin (3.5-5.0) g/dL Arterial Blood Potassium (3.4-4.5) mmol/L Arterial Blood Glucose (75-99) mg/dL Crossmatch 07/04/24 07/04/24 07/04/24 Range/Units 19:54 20:58 21:59 WBC 15.4 H (3.8-10.6) k/uL RBC 2.62 L (3.80-5.40) m/uL Hgb 7.6 L (11.4-16.0) gm/dL Hct 22.3 L (34.0-46.0) % Neutrophils # 13.6 H (1.3-7.7) k/uL PT (10.0-12.5) sec INR (<1.2) ABG pH (7.35-7.45) ABG pCO2 (35-45) mmHg ABG pO2 (83-108) mmHg ABG Total CO2 (19-24) mmol/L ABG O2 Saturation (94-97) % ABG Hematocrit (34.0-46.0) % ABG Potassium (3.4-4.5) mmol/L ABG Glucose (75-99) mg/dL ABG Lactic Acid (0.5-1.6) mmol/L Hemoglobin (11.4-16.0) gm/dL Chloride (98-107) mmol/L Creatinine (0.52-1.04) mg/dL Glucose (74-99) mg/dL POC Glucose (mg/dL) 139 H 142 H (70-110) mg/dL Calcium (8.4-10.2) mg/dL Alkaline Phosphatase (38-126) U/L Total Protein (6.3-8.2) g/dL Albumin (3.5-5.0) g/dL Arterial Blood Potassium (3.4-4.5) mmol/L Arterial Blood Glucose (75-99) mg/dL Crossmatch 07/04/24 07/05/24 07/05/24 Range/Units 22:55 00:02 00:58 WBC (3.8-10.6) k/uL RBC (3.80-5.40) m/uL Hgb (11.4-16.0) gm/dL Hct (34.0-46.0) % Neutrophils # (1.3-7.7) k/uL PT (10.0-12.5) sec INR (<1.2) ABG pH (7.35-7.45) ABG pCO2 (35-45) mmHg ABG pO2 (83-108) mmHg ABG Total CO2 (19-24) mmol/L ABG O2 Saturation (94-97) % ABG Hematocrit (34.0-46.0) % ABG Potassium (3.4-4.5) mmol/L ABG Glucose (75-99) mg/dL ABG Lactic Acid (0.5-1.6) mmol/L Hemoglobin (11.4-16.0) gm/dL Chloride (98-107) mmol/L Creatinine (0.52-1.04) mg/dL Glucose (74-99) mg/dL POC Glucose (mg/dL) 137 H 132 H 136 H (70-110) mg/dL Calcium (8.4-10.2) mg/dL Alkaline Phosphatase (38-126) U/L Total Protein (6.3-8.2) g/dL Albumin (3.5-5.0) g/dL Arterial Blood Potassium (3.4-4.5) mmol/L Arterial Blood Glucose (75-99) mg/dL Crossmatch 07/05/24 07/05/24 07/05/24 Range/Units 01:56 03:01 03:10 WBC 14.9 H (3.8-10.6) k/uL RBC 2.58 L (3.80-5.40) m/uL Hgb 7.6 L (11.4-16.0) gm/dL Hct 21.3 L (34.0-46.0) % Neutrophils # 12.4 H (1.3-7.7) k/uL PT (10.0-12.5) sec INR (<1.2) ABG pH (7.35-7.45) ABG pCO2 (35-45) mmHg ABG pO2 (83-108) mmHg ABG Total CO2 (19-24) mmol/L ABG O2 Saturation (94-97) % ABG Hematocrit (34.0-46.0) % ABG Potassium (3.4-4.5) mmol/L ABG Glucose (75-99) mg/dL ABG Lactic Acid (0.5-1.6) mmol/L Hemoglobin (11.4-16.0) gm/dL Chloride (98-107) mmol/L Creatinine (0.52-1.04) mg/dL Glucose (74-99) mg/dL POC Glucose (mg/dL) 145 H 133 H (70-110) mg/dL Calcium (8.4-10.2) mg/dL Alkaline Phosphatase (38-126) U/L Total Protein (6.3-8.2) g/dL Albumin (3.5-5.0) g/dL Arterial Blood Potassium (3.4-4.5) mmol/L Arterial Blood Glucose (75-99) mg/dL Crossmatch 07/05/24 07/05/24 07/05/24 Range/Units 03:10 05:09 06:57 WBC (3.8-10.6) k/uL RBC (3.80-5.40) m/uL Hgb (11.4-16.0) gm/dL Hct (34.0-46.0) % Neutrophils # (1.3-7.7) k/uL PT (10.0-12.5) sec INR (<1.2) ABG pH (7.35-7.45) ABG pCO2 (35-45) mmHg ABG pO2 (83-108) mmHg ABG Total CO2 (19-24) mmol/L ABG O2 Saturation (94-97) % ABG Hematocrit (34.0-46.0) % ABG Potassium (3.4-4.5) mmol/L ABG Glucose (75-99) mg/dL ABG Lactic Acid (0.5-1.6) mmol/L Hemoglobin (11.4-16.0) gm/dL Chloride (98-107) mmol/L Creatinine 0.47 L (0.52-1.04) mg/dL Glucose 115 H (74-99) mg/dL POC Glucose (mg/dL) 130 H 130 H (70-110) mg/dL Calcium (8.4-10.2) mg/dL Alkaline Phosphatase 35 L (38-126) U/L Total Protein 5.4 L (6.3-8.2) g/dL Albumin (3.5-5.0) g/dL Arterial Blood Potassium (3.4-4.5) mmol/L Arterial Blood Glucose (75-99) mg/dL Crossmatch 07/05/24 07/05/24 07/05/24 Range/Units 08:29 08:51 10:05 WBC (3.8-10.6) k/uL RBC (3.80-5.40) m/uL Hgb (11.4-16.0) gm/dL Hct (34.0-46.0) % Neutrophils # (1.3-7.7) k/uL PT (10.0-12.5) sec INR (<1.2) ABG pH (7.35-7.45) ABG pCO2 (35-45) mmHg ABG pO2 61 L (83-108) mmHg ABG Total CO2 (19-24) mmol/L ABG O2 Saturation 93.0 L (94-97) % ABG Hematocrit (34.0-46.0) % ABG Potassium (3.4-4.5) mmol/L ABG Glucose (75-99) mg/dL ABG Lactic Acid (0.5-1.6) mmol/L Hemoglobin 6.6 L* (11.4-16.0) gm/dL Chloride (98-107) mmol/L Creatinine (0.52-1.04) mg/dL Glucose (74-99) mg/dL POC Glucose (mg/dL) 164 H 167 H (70-110) mg/dL Calcium (8.4-10.2) mg/dL Alkaline Phosphatase (38-126) U/L Total Protein (6.3-8.2) g/dL Albumin (3.5-5.0) g/dL Arterial Blood Potassium (3.4-4.5) mmol/L Arterial Blood Glucose (75-99) mg/dL Crossmatch 07/05/24 Range/Units 11:25 WBC (3.8-10.6) k/uL RBC (3.80-5.40) m/uL Hgb (11.4-16.0) gm/dL Hct (34.0-46.0) % Neutrophils # (1.3-7.7) k/uL PT (10.0-12.5) sec INR (<1.2) ABG pH (7.35-7.45) ABG pCO2 (35-45) mmHg ABG pO2 (83-108) mmHg ABG Total CO2 (19-24) mmol/L ABG O2 Saturation (94-97) % ABG Hematocrit (34.0-46.0) % ABG Potassium (3.4-4.5) mmol/L ABG Glucose (75-99) mg/dL ABG Lactic Acid (0.5-1.6) mmol/L Hemoglobin (11.4-16.0) gm/dL Chloride (98-107) mmol/L Creatinine (0.52-1.04) mg/dL Glucose (74-99) mg/dL POC Glucose (mg/dL) 113 H (70-110) mg/dL Calcium (8.4-10.2) mg/dL Alkaline Phosphatase (38-126) U/L Total Protein (6.3-8.2) g/dL Albumin (3.5-5.0) g/dL Arterial Blood Potassium (3.4-4.5) mmol/L Arterial Blood Glucose (75-99) mg/dL Crossmatch
--- NOTE | 2024-07-05 11:40 | P.CRDCN ---
History of Present Illness Consult date: 07/05/24 History of present illness: Synopsis: 64-year-old with past medical history of diabetes hypertension, family history of CAD, presented to [facility] because of intermittent substernal chest pressure. On admission she was found to be in NSTEMI and had echocardi ogram showed an EF of 50%. 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 For this she was transferred to [facility] to undergo CABG. She underwent CABG on 07/04/2024 with a uneventful course intraoperatively. Progress note 07/05/2024 Postop day 1 after CABG. Coming along well, denies any new cardiovascular symptoms. Blood pressure was low for which she received IV albumin 1 L and is kept on dopamine drip. Currently hemodynamically stable on this regimen. Appropriate urine output. Labs shows hemoglobin 7.6, BUN 8, creatinine 0.7 BP 104/71, heart rate 95 beats minute, sinus rhythm on telemetry. PHYSICAL EXAMINATION Vital signs reviewed. Head: Normocephalic. Eyes: Sclerae nonicteric. Neck: Brisk carotid upstroke, no jugular venous distention. Lungs: Clear to auscultation. Heart: Regular rate and rhythm, S1-S2, no S3, no murmur or rub. Abdomen: Soft nontender, bowel sounds present, Extremities: No edema, Neuro: Alert, oriented, no focal neurological deficits. Detailed neuro exam was not performed. ASSESSMENT Triple-vessel CABG, YIN to LAD, SVG to OM2, PDA, left atrial appendage ligation NSTEMI on admission, cardiac cath showed multivessel disease. Postoperative acute blood loss anemia, expected given hemodilution Hypotension secondary to fluid shifting PLAN Continue supportive care, continue IV dopamine drip Fluids and albumin as per surgical team Continue telemetry monitoring, urine output, electrolytes close hemodynamic monitoring. Keep [place] catheter in place until patient is off pressors. Clifton Umana MD, FACC, RPVI Thank you for allowing [facility] to participate in this patient's care. Please contact us in case of any followup questions. Past Medical History Past Medical History: Coronary Artery Disease (CAD), Diabetes Mellitus, Hyperlipidemia Additional Past Medical History / Comment(s): COVID in the past, vaccinated History of Any Multi-Drug Resistant Organisms: None Reported Past Surgical History: No Surgical Hx Reported Additional Past Surgical History / Comment(s): Colonoscopy Past Anesthesia/Blood Transfusion Reactions: No Reported Reaction Past Psychological History: No Psychological Hx Reported Smoking Status: Never smoker Past Alcohol Use History: None Reported Past Drug Use History: None Reported - Past Family History Father Family Medical History: Coronary Artery Disease (CAD) Additional Family Medical History / Comment(s): Father had CABG at 40 years old, from kidney failure Mother Family Medical History: Diabetes Mellitus Medications and Allergies Home Medications Medication Instructions Recorded Confirmed Type Aspirin EC [Ecotrin Low Dose] 81 mg PO DIRECTED 06/29/24 06/29/24 History Atorvastatin [Lipitor] 80 mg PO DIRECTED 06/29/24 06/29/24 History Cholecalciferol (Vitamin D3) 1,250 mcg PO SA 06/29/24 06/29/24 History [Decara (50,000 Iu)] Empagliflozin [Jardiance] 10 mg PO DAILY 06/29/24 06/29/24 History Insulin Glargine,Hum.rec.anlog 10 units SQ HS 06/29/24 06/29/24 History [Lantus Solostar Pen] Semaglutide [Ozempic] 0.25 mg SQ SA 06/29/24 06/29/24 History Allergies Allergy/AdvReac Type Severity Reaction Status Date / Time Penicillins Allergy Rash/Hives Verified 07/04/24 06:17 Physical Exam Vitals: Vital Signs Temp Pulse Pulse Resp BP Pulse Ox FiO2 07/05/24 11:38 90 07/05/24 11:30 91 19 100 07/05/24 11:00 95 19 91/61 100 07/05/24 10:30 95 17 104/71 100 100 07/05/24 10:27 100 07/05/24 10:20 100 07/05/24 10:00 97 17 96/56 92 L 07/05/24 09:56 96 18 07/05/24 09:50 101 H 20 95 07/05/24 09:30 96 22 109/74 90 L 07/05/24 09:00 96 19 98/61 88 L 07/05/24 08:30 104 H 20 93/59 84 L 07/05/24 08:00 98.1 F 97 19 105/75 89 L 02/11/25 07:30 90 15 80/59 97 07/05/24 07:00 93 20 80/54 96 07/05/24 06:30 90 13 72/51 97 07/05/24 06:00 90 14 72/51 97 07/05/24 05:30 92 12 80/52 97 07/05/24 05:00 89 19 81/60 98 07/05/24 04:30 104 H 20 95 07/05/24 04:00 100.4 F H 117 H 42 H 104/67 94 L 07/05/24 03:52 95 07/05/24 03:30 114 H 39 H 89 L 07/05/24 03:14 108 H 20 07/05/24 03:08 105 H 20 07/05/24 03:00 104 H 27 H 97/65 89 L 07/05/24 02:30 100 25 H 95 07/05/24 02:00 105 H 20 100/70 96 07/05/24 01:30 105 H 22 98 07/05/24 01:00 103 H 20 96/59 97 07/05/24 00:30 103 H 17 96/59 95 07/05/24 00:00 99.7 F H 99 24 91/67 96 07/04/24 23:30 103 H 24 91/67 98 07/04/24 23:00 100 18 97/63 98 07/04/24 22:30 100 16 98 07/04/24 22:00 104 H 24 97/69 98 07/04/24 21:30 105 H 11 L 97 07/04/24 21:08 103 H 22 07/04/24 21:00 99 22 97 07/04/24 20:30 97 18 97 07/04/24 20:00 98.8 F 100 17 102/70 98 07/04/24 19:30 107 H 22 93 L 07/04/24 19:00 106 H 14 102/70 95 07/04/24 18:30 106 H 17 94 L 07/04/24 18:00 109 H 21 94 L 07/04/24 17:30 106 H 20 100 07/04/24 17:20 101 H 21 07/04/24 17:00 110 H 27 H 99 07/04/24 16:40 40 07/04/24 16:30 109 H 19 100 07/04/24 16:00 97.7 F 103 H 101 H 12 99 60 07/04/24 15:30 104 H 15 100 07/04/24 15:00 105 H 18 100 07/04/24 14:30 94 12 99 07/04/24 14:00 92 12 100 07/04/24 13:47 60 07/04/24 13:30 90 12 100 07/04/24 13:06 100 07/04/24 13:04 34 H Intake and Output 07/04/24 07/05/24 07/05/24 22:59 06:59 14:59 Intake Total 9133.839 0406.720 851.867 Output Total 955 653 405 Balance 277.431 677.720 446.867 Intake: IV 1215 1322 835 0.9% 400 400 250 Albumin Human 5% 250 ml 250 750 500 In Empty Bag 1 bag @ 250 mls/hr IVPB Q1HR PRN Rx#: [id number] CO/CI 190 100 40 Magnesium Sulfate-D5w Pmx 100 1 gm In Dextrose/Water 1 100ml.bag @ 100 mls/hr IVPB ONCE ONE Rx#: [id number] Pressure Bags 75 72 45 Tylenol 100 ceFAZolin 2 gm In Sodium 100 Chloride 0.9% 50 ml @ 100 mls/hr IVPB Q8HR [facility] Rx# :[id number] Intake, IV Titration 17.431 8.720 16.867 Amount Insulin Regular 100 unit 17.431 8.720 16.867 In Sodium Chloride 0.9% 100 ml @ Per Protocol IV .Q0M [facility] Rx#:[id number] Output: Chest Tube Drainage 310 290 140 Chest Tube Left Pleural 120 180 50 Chest Tube Mediastinal 190 110 90 Urine 645 363 265 Other: Voiding Method Indwelling Catheter Indwelling Catheter Weight 81.919 kg ABP, PAP, CO, CI - Last 8 Hours Arterial Blood Pressure 99/52 Arterial Blood Pressure 101/54 Arterial Blood Pressure 111/55 Arterial Blood Pressure 101/52 Arterial Blood Pressure 101/51 Arterial Blood Pressure 97/49 Arterial Blood Pressure 101/45 Arterial Blood Pressure 89/43 Arterial Blood Pressure 74/42 Arterial Blood Pressure 76/43 Arterial Blood Pressure 72/41 Arterial Blood Pressure 70/45 Arterial Blood Pressure 70/42 Arterial Blood Pressure 73/44 Arterial Blood Pressure 93/49 Arterial Blood Pressure 139/62 Pulmonary Artery Pressure 30/19 Pulmonary Artery Pressure 32/19 Pulmonary Artery Pressure 31/20 Pulmonary Artery Pressure 31/18 Pulmonary Artery Pressure 34/19 Pulmonary Artery Pressure 38/19 Pulmonary Artery Pressure 39/23 Pulmonary Artery Pressure 32/17 Pulmonary Artery Pressure 24/14 Pulmonary Artery Pressure 26/14 Pulmonary Artery Pressure 27/15 Pulmonary Artery Pressure 25/14 Pulmonary Artery Pressure 27/18 Pulmonary Artery Pressure 34/19 Pulmonary Artery Pressure 32/24 Pulmonary Artery Pressure 43/28 Cardiac Output 4.7 Cardiac Output 5.5 Cardiac Output 3.3 Cardiac Output 3.7 Cardiac Output 3.8 Cardiac Output 6.1 Cardiac Index 2.5 Cardiac Index 2.9 Cardiac Index 1.8 Cardiac Index 2 Cardiac Index 2 Cardiac Index 3.4 Results 07/05/24 03:10 07/05/24 03:10 Cardiac Enzymes 07/04/24 07/05/24 Range/Units 13:10 03:10 AST 22 35 (14-36) U/L Coagulation 07/04/24 Range/Units 13:10 PT 13.4 H (10.0-12.5) sec APTT 25.5 (22.0-30.0) sec CBC 07/04/24 07/04/24 07/04/24 Range/Units 13:10 16:39 19:54 WBC 15.2 H 18.9 H 15.4 H (3.8-10.6) k/uL RBC 2.46 L 2.59 L 2.62 L (3.80-5.40) m/uL Hgb 7.2 L D 7.7 L 7.6 L (11.4-16.0) gm/dL Hct 21.1 L 22.2 L 22.3 L (34.0-46.0) % Plt Count 219 392 353 (150-450) k/uL 07/05/24 Range/Units 03:10 WBC 14.9 H (3.8-10.6) k/uL RBC 2.58 L (3.80-5.40) m/uL Hgb 7.6 L (11.4-16.0) gm/dL Hct 21.3 L (34.0-46.0) % Plt Count 372 (150-450) k/uL Comprehensive Metabolic Panel 07/04/24 07/05/24 Range/Units 13:10 03:10 Sodium 138 137 (137-145) mmol/L Potassium 3.8 4.4 (3.5-5.1) mmol/L Chloride 109 H 106 (98-107) mmol/L Carbon Dioxide 24 22 (22-30) mmol/L BUN 9 8 (7-17) mg/dL Creatinine 0.47 L 0.47 L (0.52-1.04) mg/dL Glucose 139 H 115 H (74-99) mg/dL Calcium 8.3 L 8.9 (8.4-10.2) mg/dL AST 22 35 (14-36) U/L ALT 27 31 (4-34) U/L Alkaline Phosphatase 28 L 35 L (38-126) U/L Total Protein 4.6 L 5.4 L (6.3-8.2) g/dL Albumin 3.0 L 3.7 (3.5-5.0) g/dL Current Medications Generic Name Dose Route Start Last Admin Trade Name Freq PRN Reason Stop Dose Admin Acetaminophen 1,000 mg 07/05/24 00:58 Acetaminophen Tab 500 Mg Tab PO Q6HR PRN Fever And/ Or Mild Pain (1-3) Albuterol/Ipratropium 3 ml 07/04/24 13:08 07/05/24 03:08 Ipratropium-Albuterol 3 Ml Neb INHALATION 3 ml RT-Q2H PRN Administration Shortness Of Breath Or Wheezing Albuterol/Ipratropium 3 ml 07/04/24 20:00 07/05/24 09:50 Ipratropium-Albuterol 3 Ml Neb INHALATION 3 ml RT-QID TAYLA Administration Aspirin 325 mg 07/05/24 09:00 07/05/24 10:06 Aspirin 325 Mg Tab PO 325 mg DAILY TAYLA Administration Atorvastatin Calcium 40 mg 07/05/24 09:00 07/05/24 11:26 Atorvastatin 40 Mg Tab PO 40 mg DAILY TAYLA Administration Benzocaine/Menthol 1 each 07/04/24 13:08 Benzocaine/Menthol Lozeng 1 Each Lozenge MUCOUS MEM Q2H PRN Sore Throat Bisacodyl 10 mg 07/05/24 09:00 Bisacodyl 10 Mg Supp RECTAL DAILY PRN Constipation Clopidogrel Bisulfate 75 mg 07/05/24 09:00 07/05/24 11:26 Clopidogrel 75 Mg Tab PO 75 mg DAILY TAYLA Administration Dextrose/Water 25 ml 07/04/24 13:08 Dextrose 50% Syringe 50 Ml IVP PER PROTOCOL PRN Hypoglycemia Protocol Dextrose/Water 50 ml 07/04/24 13:08 Dextrose 50% Syringe 50 Ml IVP PER PROTOCOL PRN Hypoglycemia Protocol Heparin Sodium (Porcine) 5,000 unit 07/04/24 16:00 07/05/24 08:05 Heparin Sodium,Porcine 5,000 Unit/Ml 1 Ml Vial SQ 5,000 unit Q8HR TAYLA Administration Amiodarone HCl 150 mg/ 103 mls @ 618 mls/hr 07/04/24 13:08 Dextrose/Water IV .Q10M PRN A.FIB/FLUTTER Albumin Human 250 ml/ IV 250 mls @ 250 mls/hr 07/04/24 13:08 07/05/24 06:41 Solution IVPB 07/06/24 13:07 250 mls/hr Q1HR PRN Administration For Volume Protocol Calcium Gluconate/Sodium 100 mls @ 100 mls/hr 07/04/24 13:08 Chloride 2 gm/ IV Solution IVPB 07/08/24 13:07 ONCE PRN Ionized Calcium less than 4.4 Insulin Human Regular 100 unit 101 mls @ 0 mls/hr 07/04/24 14:00 07/05/24 11:26 / Sodium Chloride IV 0 units/hr .Q0M TAYLA 0 mls/hr Titration Protocol Per Protocol Sodium Chloride 1,000 mls @ 50 mls/hr 07/04/24 13:08 07/04/24 13:18 Saline 0.9% IV 50 mls/hr .Q20H TAYLA Administration Amiodarone HCl 360 mg/ 200 mls @ 33.333 mls/hr 07/04/24 13:21 Dextrose/Water IV .Q6H PRN Per Protocol Protocol 1 MG/MIN Amiodarone HCl 450 mg/ 250 mls @ 16.667 mls/hr 07/04/24 13:21 Dextrose/Water IV 07/05/24 13:59 .Q15H PRN Cardiac Arrhythmia Protocol 0.5 MG/MIN Dopamine HCl/Dextrose 800 mg/ 250 mls @ 3.072 mls/hr 07/05/24 07:30 07/05/24 07:37 IV Solution IV 2 mcg/kg/min .Q24H TAYLA 3.072 mls/hr Administration 2 MCG/KG/MIN Magnesium Hydroxide 2,400 mg 07/05/24 09:00 Magnesium Hydroxide 2,400 Mg/30 Ml Cup PO BID PRN Constipation Metoclopramide HCl 10 mg 07/04/24 13:08 07/05/24 08:26 Metoclopramide 5 Mg/Ml 2 Ml Vial IVP 10 mg Q4H PRN Administration Nausea And Vomiting Metoprolol Tartrate 12.5 mg 07/05/24 09:00 07/05/24 09:31 Metoprolol Tartrate 12.5 Mg Tab PO 12.5 mg BID TAYLA Administration Miscellaneous Information 1 each 07/04/24 13:08 Potassium Replacement Protocol 1 Each Misc MISCELLANE DAILY PRN Per Protocol Protocol Miscellaneous Information 1 each 07/04/24 13:08 Magnesium Replacement Protocol 1 Each Misc MISCELLANE DAILY PRN Per Protocol Protocol Ondansetron HCl 4 mg 07/04/24 13:08 07/05/24 06:06 Ondansetron 4 Mg/2 Ml Vial IVP 4 mg Q6HR PRN Administration Nausea And Vomiting Oxycodone HCl 5 mg 07/04/24 13:08 07/05/24 02:00 Oxycodone Hcl 5 Mg Tab PO 5 mg Q4HR PRN Administration Moderate Pain (Scale 4 to 6) Oxycodone HCl 10 mg 07/04/24 13:08 07/05/24 03:11 Oxycodone Hcl 5 Mg Tab PO 10 mg Q4HR PRN Administration Severe Pain (Scale 7 to 10) Pantoprazole Sodium 40 mg 07/06/24 07:30 Pantoprazole 40 Mg Tablet PO [id number] TAYLA Senna/Docusate Sodium 2 each 07/05/24 21:00 Sennosides-Docusate Sodium 1 Each Tab PO HS TAYLA Sodium Chloride 10 ml 07/04/24 21:00 07/05/24 10:06 Sodium Chloride 0.9% Flush 10 Ml Syringe IV 10 ml BID TAYLA Administration Intake and Output 07/04/24 07/05/24 07/05/24 22:59 06:59 14:59 Intake Total 2770.951 0581.720 851.867 Output Total 955 653 405 Balance 277.431 677.720 446.867 Intake: IV 1215 1322 835 0.9% 400 400 250 Albumin Human 5% 250 ml 250 750 500 In Empty Bag 1 bag @ 250 mls/hr IVPB Q1HR PRN Rx#: [id number] CO/CI 190 100 40 Magnesium Sulfate-D5w Pmx 100 1 gm In Dextrose/Water 1 100ml.bag @ 100 mls/hr IVPB ONCE ONE Rx#: [id number] Pressure Bags 75 72 45 Tylenol 100 ceFAZolin 2 gm In Sodium 100 Chloride 0.9% 50 ml @ 100 mls/hr IVPB Q8HR [facility] Rx# :[id number] Intake, IV Titration 17.431 8.720 16.867 Amount Insulin Regular 100 unit 17.431 8.720 16.867 In Sodium Chloride 0.9% 100 ml @ Per Protocol IV .Q0M [facility] Rx#:[id number] Output: Chest Tube Drainage 310 290 140 Chest Tube Left Pleural 120 180 50 Chest Tube Mediastinal 190 110 90 Urine 645 363 265 Other: Voiding Method Indwelling Catheter Indwelling Catheter Weight 81.919 kg 07/05/24 03:10 07/05/24 03:10
[2024-07-05 12:13] LABS: Glucose,Whole Blood 140 mg/dL (70-110)
--- NOTE | 2024-07-05 12:58 | P.PN ---
Subjective Progress Note Date: 07/05/24 This is a very pleasant 64-year-old female patient with a known history of hyperlipidemia, diabetes mellitus and strong family history of coronary artery disease as her father had coronary artery bypass surgery at 40 years old. She is a lifelong non-smoker. She had presented to [facility] and was found to have a non-ST segment elevation myocardial infarction. She had a cardiac catheterization done there revealing significant triple-vessel coronary artery disease. She was transferred here on June 29, 2024 for cardiothoracic evaluation. The plan is for revascularization surgery on July 04, 2024. Echocardiogram revealed preserved left ventricular systolic function with an ejection fraction 55 to 60%. Carotid Dopplers revealed no significant stenosis bilaterally. CT scan of the chest revealed no significant thoracic abnormalities. She is seen today in consult on the regular medical floor. She is currently sitting up in bed. Awake and alert in no acute distress. Denies any chest discomfort. No shortness of breath, cough or congestion. No palpitations, dizziness or lightheadedness. She is maintaining good O2 saturation in the mid 90s on room air. She is afebrile. Hemodynamically stable. White count 9.7. Hemoglobin 14.4. Platelets 403. Glucose 186. She remains on a heparin drip. She has been educated regarding the use of the incentive spirometer. The patient is seen today July 02, 2024 in follow-up on the regular medical floor. She is currently sitting up at the bedside. Awake and alert in no acute distress. Maintaining good O2 saturations in the 90s on room air. She denies any shortness of breath, cough or congestion. She denies any chest pain or palpitations. She is working well with the incentive spirometer. She remains on a heparin drip. Glucose 154. Remains on Levemir with a NovoLog sliding scale. The patient is seen today July 03, 2024 in follow-up on the regular medical floor. She is sitting up having breakfast. Awake and alert in no acute distress. Continues to maintain good O2 saturations in the 90s on room air. She continues to work with the incentive spirometer. Chest x-ray reveals no acute cardiopulmonary process. She denies any chest pain, palpitations or dizziness. White count 10.6. Hemoglobin 14.5. Platelets 503. INR 1.0. Sodium 141. Potassium 4.3. Bicarb 21. BUN 11. Creatinine 0.6. Glucose 122. She remains on a heparin drip. The patient is seen today July 04, 2024 in follow-up in the intensive care unit. She is just back from her surgery. She had undergone a coronary artery bypass grafting x 3 with a YIN to the LAD, saphenous vein graft to the OM 2 and PDA. Left atrial clipping. He is intubated on the mechanical ventilator currently on assist-control mode at a rate of 12, tidal volume 400, FiO2 100%, PEEP of 5. Blood gases revealed a PaO2 of 209, pCO2 49 and a pH of 7.30. She is sedated on propofol currently at 20 mcg/kg/min. Primacor at 0.1 mcg/kg/min. Insulin drip at 3 units/h. Nitroglycerin drip at 5 mcg/min. Normal saline at 50 mL/h. She is on heparin for DVT prophylaxis. Initiated on bronchodilators. Right IJ [place]ine catheter in place. Current cardiac output 5.9. Cardiac index 3.2. PA pressure 26/10. CVP 12. She has left and mediastinal chest tubes in place. Chest x-ray reveals new small to moderate right greater than left pleural effusions. Interstitial edema. No evidence of pneumothorax. White count 15.2. Hemoglobin 7.2. Platelets 219. INR 1.3. Sodium 138. Potassium 3.8. Bicarb 24. BUN 9. Creatinine 0.47. Glucose 139. The patient is seen today July 05, 2024 in follow-up in the intensive care unit. She is currently sitting up in a chair at the bedside. She is short of breath this morning. She is on 15 L high flow nasal cannula. Arterial blood gases revealed a PaO2 of 61, pCO2 of 39 and a pH of 7.37. The patient had some issues with low blood pressure through the night and was given albumin. She was initiated on dopamine at 2 mcg/kg/min. She is still on insulin at 7 units an hour. Normal saline at 50 mL/h. Chest x-ray shows bilateral pleural effusions/atelectasis. Cardiac output 5.5. Cardiac index 3.9. PA pressures 34/10, CVP of 12. Glucose 140. White count 14.9. Hemoglobin 7.8. Platelets 372. INR 1.3. Sodium 137. Potassium 4.4. Bicarb 22. BUN 8. Creatinine 0.47. Objective - Vital Signs Vital signs: Vital Signs Temp 100.4 F H 07/05/24 12:00 Pulse 101 H 07/05/24 12:44 Resp 17 07/05/24 12:44 BP 91/69 07/05/24 12:00 Pulse Ox 100 07/05/24 12:00 FiO2 80 07/05/24 12:44 Intake & Output 07/04/24 07/05/24 07/05/24 18:59 06:59 18:59 Intake Total 812.170 0099.440 930.867 Output Total 1525 1113 465 Balance -542.188 552.440 465.867 Weight 81.919 kg Intake: IV 974 1648 914 0.9% 250 600 300 Albumin Human 5% 250 ml 250 750 500 In Empty Bag 1 bag @ 250 mls/hr IVPB Q1HR PRN Rx#: [id number] CO/CI 120 190 60 Magnesium Sulfate-D5w Pmx 100 1 gm In Dextrose/Water 1 100ml.bag @ 100 mls/hr IVPB ONCE ONE Rx#: [id number] Pressure Bags 51 108 54 Tylenol 100 ceFAZolin 2 gm In Sodium 100 Chloride 0.9% 50 ml @ 100 mls/hr IVPB Q8HR [facility] Rx# :[id number] Intake, IV Titration 8.812 17.440 16.867 Amount Insulin Regular 100 unit 8.812 17.440 16.867 In Sodium Chloride 0.9% 100 ml @ Per Protocol IV .Q0M [facility] Rx#:[id number] Output: Chest Tube Drainage 145 455 170 Chest Tube Left Pleural 65 235 60 Chest Tube Mediastinal 80 220 110 Urine 1030 658 295 Estimated Blood Loss 350 Other: Voiding Method Indwelling Catheter Indwelling Catheter Indwelling Catheter ABP, PAP, CO, CI - Last Documented Arterial Blood Pressure 94/52 Pulmonary Artery Pressure 29/18 Cardiac Output 4.7 Cardiac Index 2.5 - Exam GENERAL EXAM: Awake, alert 64-year-old female, on 15 L high flow nasal cannula, up in a chair,, in mild respiratory distress. HEAD: Normocephalic. EYES: Sluggish reaction of pupils, equal size. NOSE: Clear with pink turbinates. THROAT: No erythema or exudates. NECK: Right IJ [place]-Jeanine catheter in place. No masses, no JVD. CHEST: Sternal dressing dry and intact. Left and mediastinal chest tubes in place.. LUNGS: Equal air entry with crackles at the bilateral bases right greater than left. CVS: S1 and S2 normal with no audible murmur, regular rhythm. ABDOMEN: No hepatosplenomegaly, no guarding or rigidity. SPINE: No scoliosis or deformity SKIN: No rashes CENTRAL NERVOUS SYSTEM: No focal deficits, tone is normal in all 4 extremities. EXTREMITIES: Right brachial arterial line in place. There is no peripheral edema. No clubbing, no cyanosis. Peripheral pulses are intact. - Labs CBC & Chem 7: 07/05/24 03:10 07/05/24 03:10 Labs: Abnormal Lab Results - Last 24 Hours (Table) 07/03/24 07/04/24 07/04/24 Range/Units 05:33 08:30 08:30 WBC (3.8-10.6) k/uL RBC (3.80-5.40) m/uL Hgb (11.4-16.0) gm/dL Hct (34.0-46.0) % Neutrophils # (1.3-7.7) k/uL PT (10.0-12.5) sec INR (<1.2) ABG pH (7.35-7.45) ABG pCO2 34 L (35-45) mmHg ABG pO2 407 H 149 H (83-108) mmHg ABG Total CO2 (19-24) mmol/L ABG O2 Saturation >99.4 H 99.0 H (94-97) % ABG Hematocrit (34.0-46.0) % ABG Potassium (3.4-4.5) mmol/L ABG Glucose 150 H 124 H (75-99) mg/dL ABG Lactic Acid 2.2 H* 3.3 H* (0.5-1.6) mmol/L Hemoglobin 11.1 L (11.4-16.0) gm/dL Chloride (98-107) mmol/L Creatinine (0.52-1.04) mg/dL Glucose (74-99) mg/dL POC Glucose (mg/dL) (70-110) mg/dL Calcium (8.4-10.2) mg/dL Alkaline Phosphatase (38-126) U/L Total Protein (6.3-8.2) g/dL Albumin (3.5-5.0) g/dL Arterial Blood Potassium (3.4-4.5) mmol/L Arterial Blood Glucose 150 H 124 H (75-99) mg/dL Crossmatch See Detail 07/04/24 07/04/24 07/04/24 Range/Units 08:30 08:30 08:30 WBC (3.8-10.6) k/uL RBC (3.80-5.40) m/uL Hgb (11.4-16.0) gm/dL Hct (34.0-46.0) % Neutrophils # (1.3-7.7) k/uL PT (10.0-12.5) sec INR (<1.2) ABG pH 7.34 L (7.35-7.45) ABG pCO2 (35-45) mmHg ABG pO2 391 H 177 H 82 L (83-108) mmHg ABG Total CO2 (19-24) mmol/L ABG O2 Saturation 99.4 H 99.0 H 98.2 H (94-97) % ABG Hematocrit 25 L 23 L 22 L (34.0-46.0) % ABG Potassium 3.2 L (3.4-4.5) mmol/L ABG Glucose 187 H 164 H 147 H (75-99) mg/dL ABG Lactic Acid 1.8 H 2.1 H 2.1 H (0.5-1.6) mmol/L Hemoglobin 8.1 L 7.6 L 7.3 L (11.4-16.0) gm/dL Chloride (98-107) mmol/L Creatinine (0.52-1.04) mg/dL Glucose (74-99) mg/dL POC Glucose (mg/dL) (70-110) mg/dL Calcium (8.4-10.2) mg/dL Alkaline Phosphatase (38-126) U/L Total Protein (6.3-8.2) g/dL Albumin (3.5-5.0) g/dL Arterial Blood Potassium 3.2 L (3.4-4.5) mmol/L Arterial Blood Glucose 187 H 164 H 147 H (75-99) mg/dL Crossmatch 07/04/24 07/04/24 07/04/24 Range/Units 13:10 13:10 13:10 WBC 15.2 H (3.8-10.6) k/uL RBC 2.46 L (3.80-5.40) m/uL Hgb 7.2 L D (11.4-16.0) gm/dL Hct 21.1 L (34.0-46.0) % Neutrophils # 10.8 H (1.3-7.7) k/uL PT 13.4 H (10.0-12.5) sec INR 1.3 H (<1.2) ABG pH (7.35-7.45) ABG pCO2 (35-45) mmHg ABG pO2 (83-108) mmHg ABG Total CO2 (19-24) mmol/L ABG O2 Saturation (94-97) % ABG Hematocrit (34.0-46.0) % ABG Potassium (3.4-4.5) mmol/L ABG Glucose (75-99) mg/dL ABG Lactic Acid (0.5-1.6) mmol/L Hemoglobin (11.4-16.0) gm/dL Chloride 109 H (98-107) mmol/L Creatinine 0.47 L (0.52-1.04) mg/dL Glucose 139 H (74-99) mg/dL POC Glucose (mg/dL) (70-110) mg/dL Calcium 8.3 L (8.4-10.2) mg/dL Alkaline Phosphatase 28 L (38-126) U/L Total Protein 4.6 L (6.3-8.2) g/dL Albumin 3.0 L (3.5-5.0) g/dL Arterial Blood Potassium (3.4-4.5) mmol/L Arterial Blood Glucose (75-99) mg/dL Crossmatch 07/04/24 07/04/24 07/04/24 Range/Units 13:12 13:36 15:17 WBC (3.8-10.6) k/uL RBC (3.80-5.40) m/uL Hgb (11.4-16.0) gm/dL Hct (34.0-46.0) % Neutrophils # (1.3-7.7) k/uL PT (10.0-12.5) sec INR (<1.2) ABG pH 7.30 L (7.35-7.45) ABG pCO2 49 H (35-45) mmHg ABG pO2 209 H (83-108) mmHg ABG Total CO2 25 H (19-24) mmol/L ABG O2 Saturation 99.9 H (94-97) % ABG Hematocrit (34.0-46.0) % ABG Potassium (3.4-4.5) mmol/L ABG Glucose (75-99) mg/dL ABG Lactic Acid (0.5-1.6) mmol/L Hemoglobin 7.1 L (11.4-16.0) gm/dL Chloride (98-107) mmol/L Creatinine (0.52-1.04) mg/dL Glucose (74-99) mg/dL POC Glucose (mg/dL) 157 H 155 H (70-110) mg/dL Calcium (8.4-10.2) mg/dL Alkaline Phosphatase (38-126) U/L Total Protein (6.3-8.2) g/dL Albumin (3.5-5.0) g/dL Arterial Blood Potassium (3.4-4.5) mmol/L Arterial Blood Glucose (75-99) mg/dL Crossmatch 07/04/24 07/04/24 07/04/24 Range/Units 16:39 16:40 17:13 WBC 18.9 H (3.8-10.6) k/uL RBC 2.59 L (3.80-5.40) m/uL Hgb 7.7 L (11.4-16.0) gm/dL Hct 22.2 L (34.0-46.0) % Neutrophils # 15.1 H (1.3-7.7) k/uL PT (10.0-12.5) sec INR (<1.2) ABG pH 7.31 L (7.35-7.45) ABG pCO2 (35-45) mmHg ABG pO2 (83-108) mmHg ABG Total CO2 (19-24) mmol/L ABG O2 Saturation 97.1 H (94-97) % ABG Hematocrit (34.0-46.0) % ABG Potassium (3.4-4.5) mmol/L ABG Glucose (75-99) mg/dL ABG Lactic Acid (0.5-1.6) mmol/L Hemoglobin 7.8 L (11.4-16.0) gm/dL Chloride (98-107) mmol/L Creatinine (0.52-1.04) mg/dL Glucose (74-99) mg/dL POC Glucose (mg/dL) 148 H (70-110) mg/dL Calcium (8.4-10.2) mg/dL Alkaline Phosphatase (38-126) U/L Total Protein (6.3-8.2) g/dL Albumin (3.5-5.0) g/dL Arterial Blood Potassium (3.4-4.5) mmol/L Arterial Blood Glucose (75-99) mg/dL Crossmatch 07/04/24 07/04/24 07/04/24 Range/Units 18:09 19:22 19:53 WBC (3.8-10.6) k/uL RBC (3.80-5.40) m/uL Hgb (11.4-16.0) gm/dL Hct (34.0-46.0) % Neutrophils # (1.3-7.7) k/uL PT (10.0-12.5) sec INR (<1.2) ABG pH (7.35-7.45) ABG pCO2 (35-45) mmHg ABG pO2 (83-108) mmHg ABG Total CO2 (19-24) mmol/L ABG O2 Saturation (94-97) % ABG Hematocrit (34.0-46.0) % ABG Potassium (3.4-4.5) mmol/L ABG Glucose (75-99) mg/dL ABG Lactic Acid (0.5-1.6) mmol/L Hemoglobin (11.4-16.0) gm/dL Chloride (98-107) mmol/L Creatinine (0.52-1.04) mg/dL Glucose (74-99) mg/dL POC Glucose (mg/dL) 162 H 147 H 145 H (70-110) mg/dL Calcium (8.4-10.2) mg/dL Alkaline Phosphatase (38-126) U/L Total Protein (6.3-8.2) g/dL Albumin (3.5-5.0) g/dL Arterial Blood Potassium (3.4-4.5) mmol/L Arterial Blood Glucose (75-99) mg/dL Crossmatch 07/04/24 07/04/24 07/04/24 Range/Units 19:54 20:58 21:59 WBC 15.4 H (3.8-10.6) k/uL RBC 2.62 L (3.80-5.40) m/uL Hgb 7.6 L (11.4-16.0) gm/dL Hct 22.3 L (34.0-46.0) % Neutrophils # 13.6 H (1.3-7.7) k/uL PT (10.0-12.5) sec INR (<1.2) ABG pH (7.35-7.45) ABG pCO2 (35-45) mmHg ABG pO2 (83-108) mmHg ABG Total CO2 (19-24) mmol/L ABG O2 Saturation (94-97) % ABG Hematocrit (34.0-46.0) % ABG Potassium (3.4-4.5) mmol/L ABG Glucose (75-99) mg/dL ABG Lactic Acid (0.5-1.6) mmol/L Hemoglobin (11.4-16.0) gm/dL Chloride (98-107) mmol/L Creatinine (0.52-1.04) mg/dL Glucose (74-99) mg/dL POC Glucose (mg/dL) 139 H 142 H (70-110) mg/dL Calcium (8.4-10.2) mg/dL Alkaline Phosphatase (38-126) U/L Total Protein (6.3-8.2) g/dL Albumin (3.5-5.0) g/dL Arterial Blood Potassium (3.4-4.5) mmol/L Arterial Blood Glucose (75-99) mg/dL Crossmatch 07/04/24 07/05/24 07/05/24 Range/Units 22:55 00:02 00:58 WBC (3.8-10.6) k/uL RBC (3.80-5.40) m/uL Hgb (11.4-16.0) gm/dL Hct (34.0-46.0) % Neutrophils # (1.3-7.7) k/uL PT (10.0-12.5) sec INR (<1.2) ABG pH (7.35-7.45) ABG pCO2 (35-45) mmHg ABG pO2 (83-108) mmHg ABG Total CO2 (19-24) mmol/L ABG O2 Saturation (94-97) % ABG Hematocrit (34.0-46.0) % ABG Potassium (3.4-4.5) mmol/L ABG Glucose (75-99) mg/dL ABG Lactic Acid (0.5-1.6) mmol/L Hemoglobin (11.4-16.0) gm/dL Chloride (98-107) mmol/L Creatinine (0.52-1.04) mg/dL Glucose (74-99) mg/dL POC Glucose (mg/dL) 137 H 132 H 136 H (70-110) mg/dL Calcium (8.4-10.2) mg/dL Alkaline Phosphatase (38-126) U/L Total Protein (6.3-8.2) g/dL Albumin (3.5-5.0) g/dL Arterial Blood Potassium (3.4-4.5) mmol/L Arterial Blood Glucose (75-99) mg/dL Crossmatch 07/05/24 07/05/24 07/05/24 Range/Units 01:56 03:01 03:10 WBC 14.9 H (3.8-10.6) k/uL RBC 2.58 L (3.80-5.40) m/uL Hgb 7.6 L (11.4-16.0) gm/dL Hct 21.3 L (34.0-46.0) % Neutrophils # 12.4 H (1.3-7.7) k/uL PT (10.0-12.5) sec INR (<1.2) ABG pH (7.35-7.45) ABG pCO2 (35-45) mmHg ABG pO2 (83-108) mmHg ABG Total CO2 (19-24) mmol/L ABG O2 Saturation (94-97) % ABG Hematocrit (34.0-46.0) % ABG Potassium (3.4-4.5) mmol/L ABG Glucose (75-99) mg/dL ABG Lactic Acid (0.5-1.6) mmol/L Hemoglobin (11.4-16.0) gm/dL Chloride (98-107) mmol/L Creatinine (0.52-1.04) mg/dL Glucose (74-99) mg/dL POC Glucose (mg/dL) 145 H 133 H (70-110) mg/dL Calcium (8.4-10.2) mg/dL Alkaline Phosphatase (38-126) U/L Total Protein (6.3-8.2) g/dL Albumin (3.5-5.0) g/dL Arterial Blood Potassium (3.4-4.5) mmol/L Arterial Blood Glucose (75-99) mg/dL Crossmatch 07/05/24 07/05/24 07/05/24 Range/Units 03:10 05:09 06:57 WBC (3.8-10.6) k/uL RBC (3.80-5.40) m/uL Hgb (11.4-16.0) gm/dL Hct (34.0-46.0) % Neutrophils # (1.3-7.7) k/uL PT (10.0-12.5) sec INR (<1.2) ABG pH (7.35-7.45) ABG pCO2 (35-45) mmHg ABG pO2 (83-108) mmHg ABG Total CO2 (19-24) mmol/L ABG O2 Saturation (94-97) % ABG Hematocrit (34.0-46.0) % ABG Potassium (3.4-4.5) mmol/L ABG Glucose (75-99) mg/dL ABG Lactic Acid (0.5-1.6) mmol/L Hemoglobin (11.4-16.0) gm/dL Chloride (98-107) mmol/L Creatinine 0.47 L (0.52-1.04) mg/dL Glucose 115 H (74-99) mg/dL POC Glucose (mg/dL) 130 H 130 H (70-110) mg/dL Calcium (8.4-10.2) mg/dL Alkaline Phosphatase 35 L (38-126) U/L Total Protein 5.4 L (6.3-8.2) g/dL Albumin (3.5-5.0) g/dL Arterial Blood Potassium (3.4-4.5) mmol/L Arterial Blood Glucose (75-99) mg/dL Crossmatch 07/05/24 07/05/24 07/05/24 Range/Units 08:29 08:51 10:05 WBC (3.8-10.6) k/uL RBC (3.80-5.40) m/uL Hgb (11.4-16.0) gm/dL Hct (34.0-46.0) % Neutrophils # (1.3-7.7) k/uL PT (10.0-12.5) sec INR (<1.2) ABG pH (7.35-7.45) ABG pCO2 (35-45) mmHg ABG pO2 61 L (83-108) mmHg ABG Total CO2 (19-24) mmol/L ABG O2 Saturation 93.0 L (94-97) % ABG Hematocrit (34.0-46.0) % ABG Potassium (3.4-4.5) mmol/L ABG Glucose (75-99) mg/dL ABG Lactic Acid (0.5-1.6) mmol/L Hemoglobin 6.6 L* (11.4-16.0) gm/dL Chloride (98-107) mmol/L Creatinine (0.52-1.04) mg/dL Glucose (74-99) mg/dL POC Glucose (mg/dL) 164 H 167 H (70-110) mg/dL Calcium (8.4-10.2) mg/dL Alkaline Phosphatase (38-126) U/L Total Protein (6.3-8.2) g/dL Albumin (3.5-5.0) g/dL Arterial Blood Potassium (3.4-4.5) mmol/L Arterial Blood Glucose (75-99) mg/dL Crossmatch 07/05/24 07/05/24 Range/Units 11:25 12:12 WBC (3.8-10.6) k/uL RBC (3.80-5.40) m/uL Hgb (11.4-16.0) gm/dL Hct (34.0-46.0) % Neutrophils # (1.3-7.7) k/uL PT (10.0-12.5) sec INR (<1.2) ABG pH (7.35-7.45) ABG pCO2 (35-45) mmHg ABG pO2 (83-108) mmHg ABG Total CO2 (19-24) mmol/L ABG O2 Saturation (94-97) % ABG Hematocrit (34.0-46.0) % ABG Potassium (3.4-4.5) mmol/L ABG Glucose (75-99) mg/dL ABG Lactic Acid (0.5-1.6) mmol/L Hemoglobin (11.4-16.0) gm/dL Chloride (98-107) mmol/L Creatinine (0.52-1.04) mg/dL Glucose (74-99) mg/dL POC Glucose (mg/dL) 113 H 140 H (70-110) mg/dL Calcium (8.4-10.2) mg/dL Alkaline Phosphatase (38-126) U/L Total Protein (6.3-8.2) g/dL Albumin (3.5-5.0) g/dL Arterial Blood Potassium (3.4-4.5) mmol/L Arterial Blood Glucose (75-99) mg/dL Crossmatch Assessment and Plan Assessment: Acute non-ST elevation myocardial infarction and found to have significant triple-vessel coronary artery disease. Status post coronary artery bypass grafting x 3 with a YIN to the LAD, saphenous vein graft to the OM 2, PDA. Left atrial clipping. Postoperative day #1 Mechanical ventilator management, expected outcome of surgery, recovered and currently on BiPAP Family history of early coronary artery disease with her father having bypass at the age of 40 Diabetes mellitus Hyperlipidemia Lifelong non-smoker Plan: The patient was seen and evaluated Chest x-ray, ABGs, labs and medications reviewed Will place the patient on BiPAP 12/5 and 100% FiO2 Titrate down the FiO2 as tolerated Continue dopamine Continue insulin drip Continue bronchodilators Heparin for DVT prophylaxis Protonix for GI prophylaxis We will continue to follow I have personally seen and examined the patient, performed the documentation and the assessment and plan as written. Number of minutes spent on the visit: 20 Dictation was produced using [employer] dictation software. Please excuse any grammatical, word or spelling errors.
[2024-07-05 14:29] LABS: Glucose,Whole Blood 96 mg/dL (70-110)
[2024-07-05 15:56] LABS: Glucose,Whole Blood 115 mg/dL (70-110)
[2024-07-05 17:23] LABS: Glucose,Whole Blood 138 mg/dL (70-110)
[2024-07-05 18:46] LABS: Glucose,Whole Blood 138 mg/dL (70-110)
[2024-07-05 20:24] LABS: Glucose,Whole Blood 99 mg/dL (70-110)
[2024-07-05] MEDS: SENNOSIDES-DOCUSATE SODIUM 1 EACH TAB PO SCH (21:12)
[2024-07-05 21:55] LABS: Glucose,Whole Blood 121 mg/dL (70-110)
[2024-07-05 23:02] LABS: Glucose,Whole Blood 136 mg/dL (70-110)
[2024-07-06 00:37] LABS: Glucose,Whole Blood 123 mg/dL (70-110)
--- NOTE | 2024-07-06 01:29 | CONS ---
CONSULTATION CHIEF COMPLAINT: Chest pain and triple-vessel coronary artery disease. HISTORY OF PRESENT ILLNESS: This lady was transferred over for open-heart procedure. Postoperatively, she is doing well with her only complaint of being a little short of breath. REVIEW OF SYSTEMS: Otherwise unremarkable. She is not having any chest pain or nausea. Past medical history, family history, personal and social histories are all otherwise unremarkable or unchanged. PHYSICAL EXAMINATION: VITAL SIGNS: Normal. HEAD, EARS, EYES, NOSE, MOUTH, AND THROAT: Normal. GENERAL: She is awake and pupils equal and round. CHEST: Breath sounds are heard bilaterally. CARDIAC: Reveals sinus rhythm. Rest of the exam is limited due to her various tubes, IVs, etc. IMPRESSION: 1. Status post triple-vessel coronary artery bypass. 2. Diabetes mellitus. PLAN: No change in management at this time. Thank you respectfully, MYRTLE / CHRISTINE: [id number] /
[2024-07-06 02:17] LABS: Glucose,Whole Blood 101 mg/dL (70-110)
--- NOTE | 2024-07-06 02:50 | DS ---
DISCHARGE SUMMARY CHIEF COMPLAINT: Chest pain. HISTORY OF PRESENT ILLNESS AND PHYSICAL EXAMINATION: Details of this lady's history and physical can be found in the initial workup. LABORATORY STUDIES: While she was in the hospital, she had laboratory studies, details of which can be found in the laboratory section of her chart. COURSE IN THE HOSPITAL: After admission, she was placed on bedrest after being transferred from [facility], where she was identified as having triple-vessel coronary artery disease. She was seen by Vascular Surgery and agreed to go through an open-heart procedure and she was discharged on the and transferred to the Cardiovascular Surgical Team. FINAL DIAGNOSES: 1. Triple-vessel coronary artery disease. 2. Type 2 diabetes. OPERATIONS: None. CONSULTATIONS: Cardiology and Cardiac Surgery. MYRTLE / CHRISTINE: [id number] /
--- NOTE | 2024-07-06 02:55 | PN ---
PROGRESS NOTE DATE OF SERVICE: 07/05/2024 CHIEF COMPLAINT: Status post triple-vessel CABG. HISTORY OF PRESENT ILLNESS: This lady is doing well. She is complaining a little bit of shortness of breath, but she is not having other complaints. PHYSICAL EXAMINATION: GENERAL: Color is good. VITAL SIGNS: Normal. CHEST: Breath sounds are heard bilaterally. CARDIAC: Normal. IMPRESSION: 1. Status post coronary artery bypass graft. 2. Diabetes. PLAN: Continue to follow until she is out of the intensive care unit and particularly with regard to her diabetes. MMODL / IJN: [id number] /
[2024-07-06 04:35] LABS: Glucose,Whole Blood 136 mg/dL (70-110)
[2024-07-06 05:18] LABS: Basophils % (A) 0 %; Eosinophils % (A) 0 %; HCT 23.4 % (34.0-46.0); Lymphocytes # (A) 1.8 k/uL (1.0-4.8); Lymphocytes % (A) 9 %; MCH 29.9 pg (25.0-35.0); MCHC 34.4 g/dL (31.0-37.0); MCV 86.9 fL (80.0-100.0); Monocytes # (A) 0.8 k/uL (0-1.0); Monocytes % (A) 4 %; Neutrophils # (A) 16.1 k/uL (1.3-7.7); Neutrophils % (A) 85 %; Platelet Count 300 k/uL (150-450); RBC 2.69 m/uL (3.80-5.40); RDW 13.6 % (11.5-15.5); WBC 19.1 k/uL (3.8-10.6)
[2024-07-06] MEDS: ACETAMINOPHEN TAB 500 MG TAB PO PRN (05:38)
[2024-07-06 05:40] LABS: ALT 24 U/L (4-34); AST 31 U/L (14-36); African American GFR (CKD) >90 (>60 ml/min/1.73 sqM); Albumin 3.8 g/dL (3.5-5.0); Alkaline Phosphatase 55 U/L (38-126); Anion Gap 13 mmol/L; Blood Urea Nitrogen 12 mg/dL (7-17); Calcium 9.1 mg/dL (8.4-10.2); Carbon Dioxide 18 mmol/L (22-30); Chloride 105 mmol/L (98-107); Glucose 119 mg/dL (74-99); Non-African American GFR(CKD) >90 (>60 ml/min/1.73 sqM); Potassium 4.1 mmol/L (3.5-5.1); Sodium 136 mmol/L (137-145); Total Bilirubin 2.4 mg/dL (0.2-1.3); Total Protein 5.6 g/dL (6.3-8.2)
--- NOTE | 2024-07-06 06:20 | XR ---
EXAMINATION TYPE: XR chest 1V portable DATE OF EXAM: 07/06/2024 CLINICAL HISTORY: Postoperative cardiac surgery. TECHNIQUE: Single AP portable semiupright view of the chest is obtained. Comparison: Chest x-ray from one day earlier and older studies. FINDINGS: There is stable Right internal jugular [place]-Jeanine catheter. There is stable mediastinal batool inage catheter and left-sided chest tube. Persistent overlying sternal wires, mediastinal clips, and left atrial appendage clip are seen. Persistent central vascular congestion and small bilateral pleural effusions. No pneumothorax clearly identified. Suboptimal with external device overlying the left lung apex however. Cardiac silhouette size is stable and mildly enlarged. Osseous structures are intact. IMPRESSION: 1. Persistent mild cardiomegaly and central vascular congestion with small bilateral pleural effusion s consistent with CHF exacerbation/fluid overload state. [facility], , 07/06/2024 6:17 AM
[2024-07-06] MEDS: PANTOPRAZOLE 40 MG TABLET PO SCH (06:42)
--- NOTE | 2024-07-06 07:51 | P.PN ---
Subjective Progress Note Date: 07/06/24 Principal diagnosis: Triple-vessel coronary artery disease, non-STEMI this admission. History of insulin-dependent diabetes uncontrolled with hyperglycemia, hyperlipidemia, lifelong non-smoker, family history of premature coronary artery disease, father had CABG at 40 years old POD #2 off-pump coronary artery bypass grafting 3 with YIN to LAD, SVG's to second obtuse marginal and posterior descending coronary arteries.Ligation of the left atrial appendage with 35 mm AtriCure clip, endoscopic vein harvest of the right greater saphenous vein, placement of Right femoral arterial line Postoperative acute blood loss anemia, expected given hemodilution Hypotension secondary to fluid shifting The patient was seen and examined this morning sitting up in a recliner in the intensive care unit in no acute distress. Currently sinus rhythm with heart rate in the 90s-low 100s, blood pressure more stable this morning. She was started on dopamine yesterday, then given 1 unit prbcs. Blood pressure better, dopamine off since yesterday afternoon. States expected postsurgical pain is controlled with current medication regimen, did have some shortness of breath yesterday, ABGs drawn, placed on bipap, breathing better, has been on/off bipap overnight. X-ray, labs reviewed. Right internal jugular [place]ordis, right brachial arterial line, mediastinal/left pleural chest tubes all present. No other new concerns. Objective - Vital Signs Vital signs: Vital Signs Temp 100.8 F H 07/06/24 04:00 Pulse 99 07/06/24 07:30 Resp 26 H 07/06/24 07:30 BP 113/69 07/06/24 07:30 Pulse Ox 98 07/06/24 07:30 FiO2 60 07/06/24 01:00 Intake & Output 07/05/24 07/06/24 07/06/24 18:59 06:59 18:59 Intake Total 1325.172 807.520 Output Total 825 565 Balance 500.172 242.520 Weight 85.4 kg Intake: IV 1268 787 0.9% 600 650 Albumin Human 5% 250 ml 500 In Empty Bag 1 bag @ 250 mls/hr IVPB Q1HR PRN Rx#: [id number] CO/CI 60 20 Pressure Bags 108 117 Intake, IV Titration 57.172 20.520 Amount DOPamine DRIP 800 mg In 30.003 Dextrose/Water 1 250ml. bag @ 2 MCG/KG/MIN 3.072 mls/hr IV .Q24H [facility] Rx#: [id number] Insulin Regular 100 unit 27.169 20.520 In Sodium Chloride 0.9% 100 ml @ Per Protocol IV .Q0M [facility] Rx#:[id number] Blood Product 0 Rc Pheresis As3 Unit 0 [id number] Output: Chest Tube Drainage 260 120 Chest Tube Left Pleural 100 10 Chest Tube Mediastinal 160 110 Urine 565 445 Other: Voiding Method Indwelling Catheter Indwelling Catheter ABP, PAP, CO, CI - Last Documented Arterial Blood Pressure 93/75 Pulmonary Artery Pressure 35/20 Cardiac Output 5.8 Cardiac Index 3.1 - Exam CONSTITUTIONAL: Appears comfortable, cooperative, no acute distress RESPIRATORY: Lungs sounds diminished in the bases bilaterally. Respirations even, nonlabored. Currently on 15 L high flow nasal cannula with oxygen saturation 99%. Able to achieve 500 mL on incentive spirometry with poor effort. Strong cough. CARDIOVASCULAR: S1, S2 present. Regular rate and rhythm, sinus rhythm to sinus tach on telemetry. Sternum stable. Palpable peripheral pulses bilaterally. Trace generalized edema present. No calf pain or tenderness noted. Heart hugger in place with patient demonstrating appropriate use. Antiembolism s tockings, SCDs present. GASTROINTESTINAL: Abdomen soft, nontender, nondistended. Active bowel sounds present 4 quadrants. Tolerating clear liquids although does still have some nausea. Denies flatus GENITOURINARY: Daniel present draining clear, yellow urine. Output overnight 30-50 mL per hour, 980 mL in the last 24 hours INTEGUMENTARY: Skin is warm and dry. Anterior chest incision well approximated and covered with dry intact dressing. Right lower extremity EVH site well approximated without redness or drainage. NEUROLOGIC: Cranial nerves II through XII intact MUSKULOSKELETAL: Able to move all extremities, strength equal bilaterally PSYCHIATRIC: Alert and oriented to person place and time, appropriate affect, intact judgment and insight INVASIVE LINES AND TUBES: Mediastinal/left pleural chest tubes present and connected to wall suction, no air leaks present. Mediastinal tube with 70 mL serosanguineous drainage overnight, 300 mL in the last 24 hours. Left pleural chest tube with 10 mL serosanguineous drainage overnight, 100 mL in the last 24 hours. Right internal jugular [place]/Cordis, right brachial arterial line present. Last CO/CI 5.8/3.1, PA 38/22, CVP 7. - Allied health notes Allied health notes reviewed: nursing - Labs CBC & Chem 7: 07/06/24 04:30 07/06/24 04:30 Labs: Abnormal Lab Results - Last 24 Hours (Table) 07/03/24 07/05/24 07/05/24 Range/Units 05:33 08:29 08:51 WBC (3.8-10.6) k/uL RBC (3.80-5.40) m/uL Hgb (11.4-16.0) gm/dL Hct (34.0-46.0) % Neutrophils # (1.3-7.7) k/uL ABG pO2 61 L (83-108) mmHg ABG O2 Saturation 93.0 L (94-97) % Hemoglobin 6.6 L* (11.4-16.0) gm/dL Sodium (137-145) mmol/L Carbon Dioxide (22-30) mmol/L Glucose (74-99) mg/dL POC Glucose (mg/dL) 164 H (70-110) mg/dL Total Bilirubin (0.2-1.3) mg/dL Total Protein (6.3-8.2) g/dL Crossmatch See Detail 07/05/24 07/05/24 07/05/24 Range/Units 10:05 11:25 12:12 WBC (3.8-10.6) k/uL RBC (3.80-5.40) m/uL Hgb (11.4-16.0) gm/dL Hct (34.0-46.0) % Neutrophils # (1.3-7.7) k/uL ABG pO2 (83-108) mmHg ABG O2 Saturation (94-97) % Hemoglobin (11.4-16.0) gm/dL Sodium (137-145) mmol/L Carbon Dioxide (22-30) mmol/L Glucose (74-99) mg/dL POC Glucose (mg/dL) 167 H 113 H 140 H (70-110) mg/dL Total Bilirubin (0.2-1.3) mg/dL Total Protein (6.3-8.2) g/dL Crossmatch 07/05/24 07/05/24 07/05/24 Range/Units 15:55 17:22 18:44 WBC (3.8-10.6) k/uL RBC (3.80-5.40) m/uL Hgb (11.4-16.0) gm/dL Hct (34.0-46.0) % Neutrophils # (1.3-7.7) k/uL ABG pO2 (83-108) mmHg ABG O2 Saturation (94-97) % Hemoglobin (11.4-16.0) gm/dL Sodium (137-145) mmol/L Carbon Dioxide (22-30) mmol/L Glucose (74-99) mg/dL POC Glucose (mg/dL) 115 H 138 H 138 H (70-110) mg/dL Total Bilirubin (0.2-1.3) mg/dL Total Protein (6.3-8.2) g/dL Crossmatch 07/05/24 07/05/24 07/06/24 Range/Units 21:53 23:00 00:35 WBC (3.8-10.6) k/uL RBC (3.80-5.40) m/uL Hgb (11.4-16.0) gm/dL Hct (34.0-46.0) % Neutrophils # (1.3-7.7) k/uL ABG pO2 (83-108) mmHg ABG O2 Saturation (94-97) % Hemoglobin (11.4-16.0) gm/dL Sodium (137-145) mmol/L Carbon Dioxide (22-30) mmol/L Glucose (74-99) mg/dL POC Glucose (mg/dL) 121 H 136 H 123 H (70-110) mg/dL Total Bilirubin (0.2-1.3) mg/dL Total Protein (6.3-8.2) g/dL Crossmatch 07/06/24 07/06/24 07/06/24 Range/Units 04:30 04:30 04:33 WBC 19.1 H (3.8-10.6) k/uL RBC 2.69 L (3.80-5.40) m/uL Hgb 8.0 L (11.4-16.0) gm/dL Hct 23.4 L (34.0-46.0) % Neutrophils # 16.1 H (1.3-7.7) k/uL ABG pO2 (83-108) mmHg ABG O2 Saturation (94-97) % Hemoglobin (11.4-16.0) gm/dL Sodium 136 L (137-145) mmol/L Carbon Dioxide 18 L (22-30) mmol/L Glucose 119 H (74-99) mg/dL POC Glucose (mg/dL) 136 H (70-110) mg/dL Total Bilirubin 2.4 H (0.2-1.3) mg/dL Total Protein 5.6 L (6.3-8.2) g/dL Crossmatch - Imaging and Cardiology Chest x-ray: report reviewed, image reviewed Assessment and Plan Assessment: Triple-vessel coronary artery disease, non-STEMI this admission, status post three-vessel off-pump CABG Chest pain, shortness of breath secondary to above Postoperative acute blood loss anemia, expected given hemodilution Hypotension secondary to fluid shifting and anemia, improved with blood transfusion History of insulin-dependent diabetes with uncontrolled hyperglycemia, hemoglobin A1c 9.8% Hyperlipidemia, cholesterol 206, LDL 124, triglycerides 239 Lifelong non-smoker, preoperative FEV1 90% of predicted Family history of premature coronary artery disease, father had CABG at 40 years old Plan: Continue to maximize medical therapy with aspirin, statin, Plavix, beta-marcia. Will increase beta-marcia therapy as tolerated, increased to 25 mg twice daily today Wean oxygen as tolerated. Encourage incentive spirometry use 10 times every hour while awake. Bronchodilators per pulmonology Increase activity as tolerated. PT/OT/cardiac rehab consulted Will monitor daily labs and x-rays. Electrolyte replacement per protocol. Will give 20 mg IVP lasix today GI/DVT prophylaxis Pain control per current medication regimen Insulin management per internal medicine. Patient should remain on IV insulin for 48 hours, then may transition to subcutaneous per protocol Will continue [place]/Cordis for now Continue chest tubes for another 24 hours, monitor record output Continue Daniel catheter for another 24 hours, continue to monitor and record strict accurate intake and output Daily weights More recommendations to follow based on patient's progress
[2024-07-06] MEDS: METOPROLOL TARTRATE 25 MG TAB PO SCH (08:09)
[2024-07-06] MEDS: FUROSEMIDE 10 MG/ML 2 ML VIAL IV ONE (08:11)
[2024-07-06 08:27] LABS: Glucose,Whole Blood 161 mg/dL (70-110)
[2024-07-06 10:14] LABS: Glucose,Whole Blood 109 mg/dL (70-110)
[2024-07-06 12:13] LABS: Glucose,Whole Blood 142 mg/dL (70-110)
--- NOTE | 2024-07-06 12:28 | P.PN ---
Subjective Progress Note Date: 07/06/24 This is a very pleasant 64-year-old female patient with a known history of hyperlipidemia, diabetes mellitus and strong family history of coronary artery disease as her father had coronary artery bypass surgery at 40 years old. She is a lifelong non-smoker. She had presented to [facility] and was found to have a non-ST segment elevation myocardial infarction. She had a cardiac catheterization done there revealing significant triple-vessel coronary artery disease. She was transferred here on June 29, 2024 for cardiothoracic evaluation. The plan is for revascularization surgery on July 04, 2024. Echocardiogram revealed preserved left ventricular systolic function with an ejection fraction 55 to 60%. Carotid Dopplers revealed no significant stenosis bilaterally. CT scan of the chest revealed no significant thoracic abnormalities. She is seen today in consult on the regular medical floor. She is currently sitting up in bed. Awake and alert in no acute distress. Denies any chest discomfort. No shortness of breath, cough or congestion. No palpitations, dizziness or lightheadedness. She is maintaining good O2 saturation in the mid 90s on room air. She is afebrile. Hemodynamically stable. White count 9.7. Hemoglobin 14.4. Platelets 403. Glucose 186. She remains on a heparin drip. She has been educated regarding the use of the incentive spirometer. The patient is seen today July 02, 2024 in follow-up on the regular medical floor. She is currently sitting up at the bedside. Awake and alert in no acute distress. Maintaining good O2 saturations in the 90s on room air. She denies any shortness of breath, cough or congestion. She denies any chest pain or palpitations. She is working well with the incentive spirometer. She remains on a heparin drip. Glucose 154. Remains on Levemir with a NovoLog sliding scale. The patient is seen today July 03, 2024 in follow-up on the regular medical floor. She is sitting up having breakfast. Awake and alert in no acute distress. Continues to maintain good O2 saturations in the 90s on room air. She continues to work with the incentive spirometer. Chest x-ray reveals no acute cardiopulmonary process. She denies any chest pain, palpitations or dizziness. White count 10.6. Hemoglobin 14.5. Platelets 503. INR 1.0. Sodium 141. Potassium 4.3. Bicarb 21. BUN 11. Creatinine 0.6. Glucose 122. She remains on a heparin drip. The patient is seen today July 04, 2024 in follow-up in the intensive care unit. She is just back from her surgery. She had undergone a coronary artery bypass grafting x 3 with a YIN to the LAD, saphenous vein graft to the OM 2 and PDA. Left atrial clipping. He is intubated on the mechanical ventilator currently on assist-control mode at a rate of 12, tidal volume 400, FiO2 100%, PEEP of 5. Blood gases revealed a PaO2 of 209, pCO2 49 and a pH of 7.30. She is sedated on propofol currently at 20 mcg/kg/min. Primacor at 0.1 mcg/kg/min. Insulin drip at 3 units/h. Nitroglycerin drip at 5 mcg/min. Normal saline at 50 mL/h. She is on heparin for DVT prophylaxis. Initiated on bronchodilators. Right IJ [place] catheter in place. Current cardiac output 5.9. Cardiac index 3.2. PA pressure 26/10. CVP 12. She has left and mediastinal chest tubes in place. Chest x-ray reveals new small to moderate right greater than left pleural effusions. Interstitial edema. No evidence of pneumothorax. White count 15.2. Hemoglobin 7.2. Platelets 219. INR 1.3. Sodium 138. Potassium 3.8. Bicarb 24. BUN 9. Creatinine 0.47. Glucose 139. The patient is seen today July 05, 2024 in follow-up in the intensive care unit. She is currently sitting up in a chair at the bedside. She is short of breath this morning. She is on 15 L high flow nasal cannula. Arterial blood gases revealed a PaO2 of 61, pCO2 of 39 and a pH of 7.37. The patient had some issues with low blood pressure through the night and was given albumin. She was initiated on dopamine at 2 mcg/kg/min. She is still on insulin at 7 units an hour. Normal saline at 50 mL/h. Chest x-ray shows bilateral pleural effusions/atelectasis. Cardiac output 5.5. Cardiac index 3.9. PA pressures 34/10, CVP of 12. Glucose 140. White count 14.9. Hemoglobin 7.8. Platelets 372. INR 1.3. Sodium 137. Potassium 4.4. Bicarb 22. BUN 8. Creatinine 0.47. The patient is seen today July 06, 2024 in follow-up in the intensive care unit. She is awake and alert in no acute distress. Sitting up in a chair. She is is still requiring 12 L high flow nasal cannula to maintain O2 saturations in the 90s. She did utilize BiPAP most of the night at 10/5 and 60% FiO2. Chest x-ray shows persistent mild cardiomegaly with central vascular congestion and small bilateral pleural effusions consistent with fluid volume overload. She remains on normal saline at 30 mL/h. Insulin drip at 4 units/h. Left mediastinal chest tubes remain in place. [place] catheter in place. Cardiac output 6.7. Cardiac index 3.5. Pressure 29/17. CVP 7. White count 19.1. He moglobin 8.0. Platelets 300,000. Sodium 136. Potassium 4.1. Bicarb 18. BUN 12. Creatinine 0.9. Glucose 136. She is working well with the incentive spirometer. Objective - Vital Signs Vital signs: Vital Signs Temp 99.7 F H 07/06/24 08:00 Pulse 82 07/06/24 11:00 Resp 17 07/06/24 11:00 BP 95/64 07/06/24 11:00 Pulse Ox 96 07/06/24 11:00 FiO2 60 07/06/24 01:00 Intake & Output 07/05/24 07/06/24 07/06/24 18:59 06:59 18:59 Intake Total 1325.172 807.520 228.482 Output Total 638 471 6249 Balance 500.172 242.520 -1051.518 Weight 85.4 kg Intake: IV 1268 787 216 0.9% 600 650 160 Albumin Human 5% 250 ml 500 In Empty Bag 1 bag @ 250 mls/hr IVPB Q1HR PRN Rx#: [id number] CO/CI 60 20 20 Pressure Bags 108 117 36 Intake, IV Titration 57.172 20.520 12.482 Amount DOPamine DRIP 800 mg In 30.003 Dextrose/Water 1 250ml. bag @ 2 MCG/KG/MIN 3.072 mls/hr IV .Q24H [facility] Rx#: [id number] Insulin Regular 100 unit 27.169 20.520 12.482 In Sodium Chloride 0.9% 100 ml @ Per Protocol IV .Q0M [facility] Rx#:[id number] Blood Product 0 Rc Pheresis As3 Unit 0 [id number] Output: Chest Tube Drainage 260 120 170 Chest Tube Left Pleural 100 10 130 Chest Tube Mediastinal 160 110 40 Urine 728 937 1817 Other: Voiding Method Indwelling Catheter Indwelling Catheter Indwelling Catheter ABP, PAP, CO, CI - Last Documented Arterial Blood Pressure 121/70 Pulmonary Artery Pressure 29/17 Cardiac Output 6.7 Cardiac Index 3.5 - Exam GENERAL EXAM: Awake, very pleasant 64-year-old female, on 12 L high flow nasal cannula, up in a chair, in no respiratory distress. HEAD: Normocephalic. EYES: Sluggish reaction of pupils, equal size. NOSE: Clear with pink turbinates. THROAT: No erythema or exudates. NECK: Right IJ [place]ine catheter in place. No masses, no JVD. CHEST: Sternal dressing dry and intact. Left and mediastinal chest tubes in place. LUNGS: Equal air entry with crackles at the bilateral bases right greater than left. CVS: S1 and S2 normal with no audible murmur, regular rhythm. ABDOMEN: No hepatosplenomegaly, no guarding or rigidity. SPINE: No scoliosis or deformity SKIN: No rashes CENTRAL NERVOUS SYSTEM: No focal deficits, tone is normal in all 4 extremities. EXTREMITIES: Right brachial arterial line in place. There is 1+ peripheral edema. No clubbing, no cyanosis. Peripheral pulses are intact. - Labs CBC & Chem 7: 07/06/24 04:30 07/06/24 04:30 Labs: Abnormal Lab Results - Last 24 Hours (Table) 07/03/24 07/05/24 07/05/24 Range/Units 05:33 15:55 17:22 WBC (3.8-10.6) k/uL RBC (3.80-5.40) m/uL Hgb (11.4-16.0) gm/dL Hct (34.0-46.0) % Neutrophils # (1.3-7.7) k/uL Sodium (137-145) mmol/L Carbon Dioxide (22-30) mmol/L Glucose (74-99) mg/dL POC Glucose (mg/dL) 115 H 138 H (70-110) mg/dL Total Bilirubin (0.2-1.3) mg/dL Total Protein (6.3-8.2) g/dL Crossmatch See Detail 07/05/24 07/05/24 07/05/24 Range/Units 18:44 21:53 23:00 WBC (3.8-10.6) k/uL RBC (3.80-5.40) m/uL Hgb (11.4-16.0) gm/dL Hct (34.0-46.0) % Neutrophils # (1.3-7.7) k/uL Sodium (137-145) mmol/L Carbon Dioxide (22-30) mmol/L Glucose (74-99) mg/dL POC Glucose (mg/dL) 138 H 121 H 136 H (70-110) mg/dL Total Bilirubin (0.2-1.3) mg/dL Total Protein (6.3-8.2) g/dL Crossmatch 07/06/24 07/06/24 07/06/24 Range/Units 00:35 04:30 04:30 WBC 19.1 H (3.8-10.6) k/uL RBC 2.69 L (3.80-5.40) m/uL Hgb 8.0 L (11.4-16.0) gm/dL Hct 23.4 L (34.0-46.0) % Neutrophils # 16.1 H (1.3-7.7) k/uL Sodium 136 L (137-145) mmol/L Carbon Dioxide 18 L (22-30) mmol/L Glucose 119 H (74-99) mg/dL POC Glucose (mg/dL) 123 H (70-110) mg/dL Total Bilirubin 2.4 H (0.2-1.3) mg/dL Total Protein 5.6 L (6.3-8.2) g/dL Crossmatch 07/06/24 07/06/24 07/06/24 Range/Units 04:33 08:25 12:11 WBC (3.8-10.6) k/uL RBC (3.80-5.40) m/uL Hgb (11.4-16.0) gm/dL Hct (34.0-46.0) % Neutrophils # (1.3-7.7) k/uL Sodium (137-145) mmol/L Carbon Dioxide (22-30) mmol/L Glucose (74-99) mg/dL POC Glucose (mg/dL) 136 H 161 H 142 H (70-110) mg/dL Total Bilirubin (0.2-1.3) mg/dL Total Protein (6.3-8.2) g/dL Crossmatch Assessment and Plan Assessment: Acute non-ST elevation myocardial infarction and found to have significant triple-vessel coronary artery disease. Status post coronary artery bypass grafting x 3 with a YIN to the LAD, saphenous vein graft to the OM 2, PDA. Left atrial clipping. Postoperative day #2 Mechanical ventilator management, expected outcome of surgery, recovered Acute hypoxemic respiratory failure secondary to fluid volume overload, currently on 12 L high flow nasal cannula Family history of early coronary artery disease with her father having bypass at the age of 40 Diabetes mellitus Hyperlipidemia Lifelong non-smoker Plan: The patient was seen and evaluated Chest x-ray, labs and medications reviewed Encouraged the increased use of the incentive spirometer Received Lasix 20 mg IVP x 1 Titrate down the FiO2 as tolerated Continue bronchodilators Heparin for DVT prophylaxis Protonix for GI prophylaxis We will continue to follow I have personally seen and examined the patient, performed the documentation and the assessment and plan as written. Number of minutes spent on the visit: 20 Dictation was produced using [employer] dictation software. Please excuse any grammatical, word or spelling errors.
--- NOTE | 2024-07-06 14:07 | P.PN ---
Subjective Progress Note Date: 07/06/24 Synopsis: 64-year-old with past medical history of diabetes hypertension, family history of CAD, presented to [facility] because of intermittent substernal chest pressure. On admission she was found to be in NSTEMI and had echocardiogram showed an EF of 50%. 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 For this she was transferred to [facility] to undergo CABG. She underwent CABG on 07/04/2024 with a uneventful course intraoperatively. Progress note 07/05/2024 Postop day 1 after CABG. Coming along well, denies any new cardiovascular symptoms. Blood pressure was low for which she received IV albumin 1 L and is kept on dopamine drip. Currently hemodynamically stable on this regimen. Ap propriate urine output. Labs shows hemoglobin 7.6, BUN 8, creatinine 0.7 BP 104/71, heart rate 95 beats minute, sinus rhythm on telemetry. 07/06/2024 Patient is seen and examined at bedside this a.m. Postop day 2 after CABG. Off pressors and inotropes. [place] catheter is out. Chest tube and mediastinal tube is in place. Daniel catheter in place. Appropriate urine output. Hemoglobin 8, BUN 12, creatinine 0.59, Does not appear significantly volume overloaded at this time. Sinus rhythm on telemetry with no significant arrhythmias in last 24-hour monitoring. PHYSICAL EXAMINATION Vital signs reviewed. Head: Normocephalic. Eyes: Sclerae nonicteric. Neck: Brisk carotid upstroke, no jugular venous distention. Lungs: Diminished breath sounds with poor inspiratory effort. Mild crackles audible in bilateral bases. Heart: Regular rate and rhythm, S1-S2, no S3, no murmur or rub. Abdomen: Soft nontender, bowel sounds present, Extremities: 1+ pitting edema Neuro: Alert, oriented, no focal neurological deficits. Detailed neuro exam was not performed. ASSESSMENT Triple-vessel CABG, YIN to LAD, SVG to OM2, PDA, left atrial appendage ligation NSTEMI on admission, cardiac cath showed multivessel disease. Postoperative acute blood loss anemia, expected given hemodilution PLAN Aspirin 325, Lipitor 40, Plavix 75, metoprolol 25 twice daily, Continue supportive care, Fluids and albumin as per surgical team Continue telemetry monitoring, urine output, electrolytes close hemodynamic monitoring. Keep [place]ine catheter in place until patient is off pressors. Objective - Vital Signs Vital signs: Vital Signs Temp 99.5 F 07/06/24 11:30 Pulse 88 07/06/24 13:00 Resp 17 07/06/24 13:00 BP 110/71 07/06/24 13:00 Pulse Ox 93 L 07/06/24 13:00 FiO2 60 07/06/24 01:00 Intake & Output 07/05/24 07/06/24 07/06/24 18:59 06:59 18:59 Intake Total 1325.172 807.520 294.482 Output Total 241 242 4138 Balance 500.172 242.520 -1095.518 Weight 85.4 kg Intake: IV 1268 787 282 0.9% 600 650 220 Albumin Human 5% 250 ml 500 In Empty Bag 1 bag @ 250 mls/hr IVPB Q1HR PRN Rx#: [id number] CO/CI 60 20 20 Pressure Bags 108 117 42 Intake, IV Titration 57.172 20.520 12.482 Amount DOPamine DRIP 800 mg In 30.003 Dextrose/Water 1 250ml. bag @ 2 MCG/KG/MIN 3.072 mls/hr IV .Q24H [facility] Rx#: [id number] Insulin Regular 100 unit 27.169 20.520 12.482 In Sodium Chloride 0.9% 100 ml @ Per Protocol IV .Q0M [facility] Rx#:[id number] Blood Product 0 Rc Pheresis As3 Unit 0 [id number] Output: Chest Tube Drainage 260 120 190 Chest Tube Left Pleural 100 10 150 Chest Tube Mediastinal 160 110 40 Urine 792 556 7220 Other: Voiding Method Indwelling Catheter Indwelling Catheter Indwelling Catheter ABP, PAP, CO, CI - Last Documented Arterial Blood Pressure 121/70 Pulmonary Artery Pressure 40/23 Cardiac Output 6.7 Cardiac Index 3.5 - Labs CBC & Chem 7: 07/06/24 04:30 07/06/24 04:30 Labs: Abnormal Lab Results - Last 24 Hours (Table) 07/03/24 07/05/24 07/05/24 Range/Units 05:33 15:55 17:22 WBC (3.8-10.6) k/uL RBC (3.80-5.40) m/uL Hgb (11.4-16.0) gm/dL Hct (34.0-46.0) % Neutrophils # (1.3-7.7) k/uL Sodium (137-145) mmol/L Carbon Dioxide (22-30) mmol/L Glucose (74-99) mg/dL POC Glucose (mg/dL) 115 H 138 H (70-110) mg/dL Total Bilirubin (0.2-1.3) mg/dL Total Protein (6.3-8.2) g/dL Crossmatch See Detail 07/05/24 07/05/24 07/05/24 Range/Units 18:44 21:53 23:00 WBC (3.8-10.6) k/uL RBC (3.80-5.40) m/uL Hgb (11.4-16.0) gm/dL Hct (34.0-46.0) % Neutrophils # (1.3-7.7) k/uL Sodium (137-145) mmol/L Carbon Dioxide (22-30) mmol/L Glucose (74-99) mg/dL POC Glucose (mg/dL) 138 H 121 H 136 H (70-110) mg/dL Total Bilirubin (0.2-1.3) mg/dL Total Protein (6.3-8.2) g/dL Crossmatch 07/06/24 07/06/24 07/06/24 Range/Units 00:35 04:30 04:30 WBC 19.1 H (3.8-10.6) k/uL RBC 2.69 L (3.80-5.40) m/uL Hgb 8.0 L (11.4-16.0) gm/dL Hct 23.4 L (34.0-46.0) % Neutrophils # 16.1 H (1.3-7.7) k/uL Sodium 136 L (137-145) mmol/L Carbon Dioxide 18 L (22-30) mmol/L Glucose 119 H (74-99) mg/dL POC Glucose (mg/dL) 123 H (70-110) mg/dL Total Bilirubin 2.4 H (0.2-1.3) mg/dL Total Protein 5.6 L (6.3-8.2) g/dL Crossmatch 07/06/24 07/06/24 07/06/24 Range/Units 04:33 08:25 12:11 WBC (3.8-10.6) k/uL RBC (3.80-5.40) m/uL Hgb (11.4-16.0) gm/dL Hct (34.0-46.0) % Neutrophils # (1.3-7.7) k/uL Sodium (137-145) mmol/L Carbon Dioxide (22-30) mmol/L Glucose (74-99) mg/dL POC Glucose (mg/dL) 136 H 161 H 142 H (70-110) mg/dL Total Bilirubin (0.2-1.3) mg/dL Total Protein (6.3-8.2) g/dL Crossmatch
[2024-07-06 14:17] LABS: Glucose,Whole Blood 165 mg/dL (70-110)
[2024-07-06 16:39] LABS: Glucose,Whole Blood 108 mg/dL (70-110)
[2024-07-06] MEDS: ASCORBIC ACID 500 MG TAB PO SCH (16:49)
[2024-07-06] MEDS: FERROUS SULFATE 325 MG TAB PO SCH (16:49)
[2024-07-06 18:22] LABS: Glucose,Whole Blood 112 mg/dL (70-110)
[2024-07-06 20:18] LABS: Glucose,Whole Blood 122 mg/dL (70-110)
[2024-07-06 22:06] LABS: Glucose,Whole Blood 119 mg/dL (70-110)
[2024-07-07 00:07] LABS: Glucose,Whole Blood 107 mg/dL (70-110)
[2024-07-07 02:16] LABS: Glucose,Whole Blood 109 mg/dL (70-110)
[2024-07-07 04:31] LABS: Glucose,Whole Blood 131 mg/dL (70-110)
--- NOTE | 2024-07-07 06:45 | XR ---
EXAMINATION TYPE: XR chest 1V portable DATE OF EXAM: 07/07/2024 CLINICAL HISTORY: Postoperative cardiac surgery. TECHNIQUE: Single AP portable semiupright view of the chest is obtained. Comparison: Chest x-ray from one day earlier and older studies. FINDINGS: There is interval removal of Right internal jugular [place]-Jeanine catheter. There is stable me diastinal drainage catheter and left-sided chest tube. Persistent overlying sternal wires, mediastina l clips, and left atrial appendage clip are seen. More prominent central vascular congestion and bibasilar opacities. New tiny left apical pneumothorax is present. Mild cardiomegaly redemonstrated. Osseous structures are intact. IMPRESSION: 1. New tiny left apical pneumothorax despite left sided chest tube. 2. Worsening central vascular congestion and bibasilar opacities likely reflecting worsening small to moderate size bilateral pleural effusions and associated compressive atelectasis. Correlate for flui d overload state. [facility], Workstation: [id number], 07/07/2024 6:42 AM
[2024-07-07 06:53] LABS: Basophils % (A) 0 %; Eosinophils % (A) 0 %; HCT 25.7 % (34.0-46.0); HGB 8.3 gm/dL (11.4-16.0); Hypochromasia Slight; Lymphocytes # (A) 1.8 k/uL (1.0-4.8); Lymphocytes % (A) 10 %; MCH 29.2 pg (25.0-35.0); MCHC 32.2 g/dL (31.0-37.0); MCV 90.7 fL (80.0-100.0); Mean Platelet Volume 7.1; Monocytes # (A) 0.6 k/uL (0-1.0); Monocytes % (A) 4 %; Neutrophils # (A) 15.8 k/uL (1.3-7.7); Neutrophils % (A) 85 %; Platelet Count 312 k/uL (150-450); RBC 2.83 m/uL (3.80-5.40); RDW 13.9 % (11.5-15.5); WBC 18.5 k/uL (3.8-10.6)
[2024-07-07 06:59] LABS: Glucose,Whole Blood 134 mg/dL (70-110)
[2024-07-07 07:16] LABS: ALT 25 U/L (4-34); AST 28 U/L (14-36); African American GFR (CKD) >90 (>60 ml/min/1.73 sqM); Albumin 3.8 g/dL (3.5-5.0); Alkaline Phosphatase 72 U/L (38-126); Anion Gap 14 mmol/L; Blood Urea Nitrogen 17 mg/dL (7-17); Carbon Dioxide 20 mmol/L (22-30); Chloride 103 mmol/L (98-107); Glucose 116 mg/dL (74-99); Non-African American GFR(CKD) >90 (>60 ml/min/1.73 sqM); Potassium 4.1 mmol/L (3.5-5.1); Sodium 137 mmol/L (137-145); Total Protein 5.8 g/dL (6.3-8.2)
--- NOTE | 2024-07-07 07:52 | P.PN ---
Subjective Progress Note Date: 07/07/24 Principal diagnosis: Triple-vessel coronary artery disease, non-STEMI this admission. History of insulin-dependent diabetes uncontrolled with hyperglycemia, hyperlipidemia, lifelong non-smoker, family history of premature coronary artery disease, father had CABG at 40 years old POD #3 off-pump coronary artery bypass grafting 3 with YIN to LAD, SVG's to second obtuse marginal and posterior descending coronary arteries.Ligation of the left atrial appendage with 35 mm AtriCure clip, endoscopic vein harvest of the right greater saphenous vein, placement of Right femoral arterial line Postoperative acute blood loss anemia, expected given hemodilution Hypotension secondary to fluid shifting The patient was seen and examined this morning sitting up in a recliner in the intensive care unit in no acute distress having just got back from her walk. Currently sinus rhythm with heart rate in the 90s, blood pressure stable this morning off dopamine for more than 24 hours. States expected postsurgical pain is mostly controlled with current medication regimen. Does still get winded with ambulation but overall respiratory status improving, off BiPAP since yesterday, high flow nasal cannula weaning down. Patient has been ambulating short distances in the hallway without difficulty. X-ray, labs reviewed. Right internal jugular cordis, mediastinal/left pleural chest tubes all present. No other new concerns. Objective - Vital Signs Vital signs: Vital Signs Temp 97.8 F 07/07/24 04:00 Pulse 96 07/07/24 04:00 Resp 23 07/07/24 04:00 BP 103/75 07/07/24 04:00 Pulse Ox 96 07/07/24 04:00 FiO2 60 07/06/24 01:00 Intake & Output 07/06/24 07/07/24 07/07/24 18:59 06:59 18:59 Intake Total 621.492 432.567 Output Total 1700 460 Balance -1078.508 -27.433 Intake: IV 447 330 0.9% 370 300 CO/CI 20 Pressure Bags 57 30 Intake, IV Titration 24.492 2.567 Amount Insulin Regular 100 unit 24.492 2.567 In Sodium Chloride 0.9% 100 ml @ Per Protocol IV .Q0M [facility] Rx#:[id number] Oral 150 100 Output: Chest Tube Drainage 310 160 Chest Tube Left Pleural 230 100 Chest Tube Mediastinal 80 60 Urine 1390 300 Other: Voiding Method Indwelling Catheter Bedside Commode ABP, PAP, CO, CI - Last Documented Arterial Blood Pressure 121/70 Pulmonary Artery Pressure 40/23 Cardiac Output 6.7 Cardiac Index 3.5 - Exam CONSTITUTIONAL: Appears comfortable, cooperative, no acute distress RESPIRATORY: Lungs sounds diminished in the bases bilaterally. Respirations even, nonlabored. Currently on 7 L high flow nasal cannula with oxygen saturation 95%. Able to achieve 500 mL on incentive spirometry with poor effort. Strong cough. CARDIOVASCULAR: S1, S2 present. Regular rate and rhythm, sinus rhythm on telemetry. Sternum stable. Palpable peripheral pulses bilaterally. Trace generalized edema present. No calf pain or tenderness noted. Heart hugger in place with patient demonstrating appropriate use. Antiembolism stockings, SCDs present. GASTROINTESTINAL: Abdomen soft, nontender, nondistended. Active bowel sounds present 4 quadrants. Tolerating minimal diet. Positive flatus GENITOURINARY: Daniel discontinued yesterday, patient has been voiding, output 1690 mL in the last 24 hours INTEGUMENTARY: Skin is warm and dry. Anterior chest incision well approximated and covered with dry intact dressing. Right lower extremity EVH site well approximated without redness or drainage. NEUROLOGIC: Cranial nerves II through XII intact MUSKULOSKELETAL: Able to move all extremities, strength equal bilaterally PSYCHIATRIC: Alert and oriented to person place and time, appropriate affect, i ntact judgment and insight INVASIVE LINES AND TUBES: Mediastinal/left pleural chest tubes present and connected to wall suction, no air leaks present. Mediastinal tube with 40 mL serosanguineous drainage overnight, 100 mL in the last 24 hours. Left pleural chest tube with 60 mL serous drainage overnight, 350 mL in the last 24 hours. Right internal jugular cordis, right brachial arterial line present. Last CVP 11 - Allied health notes Allied health notes reviewed: nursing - Labs CBC & Chem 7: 07/07/24 06:12 07/07/24 06:12 Labs: Abnormal Lab Results - Last 24 Hours (Table) 07/06/24 07/06/24 07/06/24 Range/Units 08:25 12:11 14:15 WBC (3.8-10.6) k/uL RBC (3.80-5.40) m/uL Hgb (11.4-16.0) gm/dL Hct (34.0-46.0) % Neutrophils # (1.3-7.7) k/uL Carbon Dioxide (22-30) mmol/L Glucose (74-99) mg/dL POC Glucose (mg/dL) 161 H 142 H 165 H (70-110) mg/dL Total Bilirubin (0.2-1.3) mg/dL Total Protein (6.3-8.2) g/dL 07/06/24 07/06/24 07/06/24 Range/Units 18:21 20:16 22:05 WBC (3.8-10.6) k/uL RBC (3.80-5.40) m/uL Hgb (11.4-16.0) gm/dL Hct (34.0-46.0) % Neutrophils # (1.3-7.7) k/uL Carbon Dioxide (22-30) mmol/L Glucose (74-99) mg/dL POC Glucose (mg/dL) 112 H 122 H 119 H (70-110) mg/dL Total Bilirubin (0.2-1.3) mg/dL Total Protein (6.3-8.2) g/dL 07/07/24 07/07/24 07/07/24 Range/Units 04:29 06:12 06:12 WBC 18.5 H (3.8-10.6) k/uL RBC 2.83 L (3.80-5.40) m/uL Hgb 8.3 L (11.4-16.0) gm/dL Hct 25.7 L (34.0-46.0) % Neutrophils # 15.8 H (1.3-7.7) k/uL Carbon Dioxide 20 L (22-30) mmol/L Glucose 116 H (74-99) mg/dL POC Glucose (mg/dL) 131 H (70-110) mg/dL Total Bilirubin 2.0 H (0.2-1.3) mg/dL Total Protein 5.8 L (6.3-8.2) g/dL 07/07/24 Range/Units 06:57 WBC (3.8-10.6) k/uL RBC (3.80-5.40) m/uL Hgb (11.4-16.0) gm/dL Hct (34.0-46.0) % Neutrophils # (1.3-7.7) k/uL Carbon Dioxide (22-30) mmol/L Glucose (74-99) mg/dL POC Glucose (mg/dL) 134 H (70-110) mg/dL Total Bilirubin (0.2-1.3) mg/dL Total Protein (6.3-8.2) g/dL - Imaging and Cardiology Chest x-ray: report reviewed, image reviewed Assessment and Plan Assessment: Triple-vessel coronary artery disease, non-STEMI this admission, status post three-vessel off-pump CABG Chest pain, shortness of breath secondary to above Postoperative acute blood loss anemia, expected given hemodilution Hypotension secondary to fluid shifting and anemia, improved with blood transfusion History of insulin-dependent diabetes with uncontrolled hyperglycemia, hemoglobi n A1c 9.8% Hyperlipidemia, cholesterol 206, LDL 124, triglycerides 239 Lifelong non-smoker, preoperative FEV1 90% of predicted Family history of premature coronary artery disease, father had CABG at 40 years old Plan: Continue to maximize medical therapy with aspirin, statin, Plavix, beta-marcia. Will increase beta-marcia therapy as tolerated Wean oxygen as tolerated. Encourage incentive spirometry use 10 times every hour while awake. Bronchodilators per pulmonology Increase activity as tolerated. PT/OT/cardiac rehab consulted Will monitor daily labs and x-rays. Electrolyte replacement per protocol. Will give 20 mg IVP lasix today GI/DVT prophylaxis Pain control per current medication regimen, will add Toradol, will DC narcotics after chest tubes removed Insulin management per internal medicine Discontinue Cordis Will discontinue mediastinal chest tube, likely will discontinue left pleural chest tube later today Continue to monitor and record strict accurate intake and output Daily weights Likely will place transfer orders for 3 S. cardiac stepdown unit later this afternoon as long as patient stays stable More recommendations to follow based on patient's progress
[2024-07-07 08:11] LABS: Glucose,Whole Blood 139 mg/dL (70-110)
[2024-07-07] MEDS: KETOROLAC 15 MG/ML 1 ML VIAL IVP SCH (08:51)
--- NOTE | 2024-07-07 09:46 | P.PN ---
Subjective Progress Note Date: 07/07/24 Synopsis: 64-year-old with past medical history of diabetes hypertension, family history of CAD, presented to [facility] because of intermittent substernal chest pressure. On admission she was found to be in NSTEMI and had echocardiogram showed an EF of 50%. 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 For this she was transferred to [facility] to undergo CABG. She underwent CABG on 07/04/2024 with a uneventful course intraoperatively. Progress note 07/05/2024 Postop day 1 after CABG. Coming along well, denies any new cardiovascular symptoms. Blood pressure was low for which she received IV albumin 1 L and is kept on dopamine drip. Currently hemodynamically stable on this regimen. A ppropriate urine output. Labs shows hemoglobin 7.6, BUN 8, creatinine 0.7 BP 104/71, heart rate 95 beats minute, sinus rhythm on telemetry. 07/06/2024 Patient is seen and examined at bedside this a.m. Postop day 2 after CABG. Off pressors and inotropes. [place]-Jeanine catheter is out. Chest tube and mediastinal tube is in place. Daniel catheter in place. Appropriate urine output. Hemoglobin 8, BUN 12, creatinine 0.59, Does not appear significantly volume overloaded at this time. Sinus rhythm on telemetry with no significant arrhythmias in last 24-hour monitoring. 07/07/2024 Patient is seen and examined at bedside this a.m. Postop day 3 after CABG Continues to be in sinus rhythm on telemetry. No new cardiovascular events overnight. Coming along well. Hemoglobin 8.3. Creatinine 0.6. Does not appear volume overloaded clinically. PHYSICAL EXAMINATION Vital signs reviewed. Head: Normocephalic. Eyes: Sclerae nonicteric. Neck: Brisk carotid upstroke, no jugular venous distention. Lungs: Diminished breath sounds with poor inspiratory effort. Mild crackles audible in bilateral bases. Heart: Regular rate and rhythm, S1-S2, no S3, no murmur or rub. Abdomen: Soft nontender, bowel sounds present, Extremities: 1+ pitting edema Neuro: Alert, oriented, no focal neurological deficits. Detailed neuro exam was not performed. ASSESSMENT Triple-vessel CABG, YIN to LAD, SVG to OM2, PDA, left atrial appendage ligation NSTEMI on admission, cardiac cath showed multivessel disease. Postoperative acute blood loss anemia, expected given hemodilution PLAN Aspirin 325, Lipitor 40, Plavix 75, metoprolol 25 twice daily, Continue supportive care, Continue telemetry monitoring, urine output, electrolytes close hemodynamic monitoring. Objective - Vital Signs Vital signs: Vital Signs Temp 97.6 F 07/07/24 08:00 Pulse 96 07/07/24 09:00 Resp 23 07/07/24 09:00 BP 108/68 07/07/24 09:00 Pulse Ox 96 07/07/24 09:00 FiO2 60 07/06/24 01:00 Intake & Output 07/06/24 07/07/24 07/07/24 18:59 06:59 18:59 Intake Total 621.492 498.567 199 Output Total 1700 530 180 Balance -1078.508 -31.433 19 Weight 84.3 kg Intake: IV 447 396 99 0.9% 370 360 90 CO/CI 20 Pressure Bags 57 36 9 Intake, IV Titration 24.492 2.567 Amount Insulin Regular 100 unit 24.492 2.567 In Sodium Chloride 0.9% 100 ml @ Per Protocol IV .Q0M [facility] Rx#:[id number] Oral 150 100 100 Output: Chest Tube Drainage 310 230 80 Chest Tube Left Pleural 230 140 40 Chest Tube Mediastinal 80 90 40 Urine 1390 300 100 Other: Voiding Method Indwelling Catheter Bedside Commode ABP, PAP, CO, CI - Last Documented Arterial Blood Pressure 121/70 Pulmonary Artery Pressure 40/23 Cardiac Output 6.7 Cardiac Index 3.5 - Labs CBC & Chem 7: 07/07/24 06:12 07/07/24 06:12 Labs: Abnormal Lab Results - Last 24 Hours (Table) 07/06/24 07/06/24 07/06/24 Range/Units 12:11 14:15 18:21 WBC (3.8-10.6) k/uL RBC (3.80-5.40) m/uL Hgb (11.4-16.0) gm/dL Hct (34.0-46.0) % Neutrophils # (1.3-7.7) k/uL Carbon Dioxide (22-30) mmol/L Glucose (74-99) mg/dL POC Glucose (mg/dL) 142 H 165 H 112 H (70-110) mg/dL Total Bilirubin (0.2-1.3) mg/dL Total Protein (6.3-8.2) g/dL 07/06/24 07/06/24 07/07/24 Range/Units 20:16 22:05 04:29 WBC (3.8-10.6) k/uL RBC (3.80-5.40) m/uL Hgb (11.4-16.0) gm/dL Hct (34.0-46.0) % Neutrophils # (1.3-7.7) k/uL Carbon Dioxide (22-30) mmol/L Glucose (74-99) mg/dL POC Glucose (mg/dL) 122 H 119 H 131 H (70-110) mg/dL Total Bilirubin (0.2-1.3) mg/dL Total Protein (6.3-8.2) g/dL 07/07/24 07/07/24 07/07/24 Range/Units 06:12 06:12 06:57 WBC 18.5 H (3.8-10.6) k/uL RBC 2.83 L (3.80-5.40) m/uL Hgb 8.3 L (11.4-16.0) gm/dL Hct 25.7 L (34.0-46.0) % Neutrophils # 15.8 H (1.3-7.7) k/uL Carbon Dioxide 20 L (22-30) mmol/L Glucose 116 H (74-99) mg/dL POC Glucose (mg/dL) 134 H (70-110) mg/dL Total Bilirubin 2.0 H (0.2-1.3) mg/dL Total Protein 5.8 L (6.3-8.2) g/dL 07/07/24 Range/Units 08:09 WBC (3.8-10.6) k/uL RBC (3.80-5.40) m/uL Hgb (11.4-16.0) gm/dL Hct (34.0-46.0) % Neutrophils # (1.3-7.7) k/uL Carbon Dioxide (22-30) mmol/L Glucose (74-99) mg/dL POC Glucose (mg/dL) 139 H (70-110) mg/dL Total Bilirubin (0.2-1.3) mg/dL Total Protein (6.3-8.2) g/dL
[2024-07-07 10:35] LABS: Glucose,Whole Blood 181 mg/dL (70-110)
[2024-07-07 12:07] LABS: Glucose,Whole Blood 139 mg/dL (70-110)
--- NOTE | 2024-07-07 12:15 | P.PN ---
Subjective Progress Note Date: 07/07/24 This is a very pleasant 64-year-old female patient with a known history of hyperlipidemia, diabetes mellitus and strong family history of coronary artery disease as her father had coronary artery bypass surgery at 40 years old. She is a lifelong non-smoker. She had presented to [facility] and was found to have a non-ST segment elevation myocardial infarction. She had a cardiac catheterization done there revealing significant triple-vessel coronary artery disease. She was transferred here on June 29, 2024 for cardiothoracic evaluation. The plan is for revascularization surgery on July 04, 2024. Echocardiogram revealed preserved left ventricular systolic function with an ejection fraction 55 to 60%. Carotid Dopplers revealed no significant stenosis bilaterally. CT scan of the chest revealed no significant thoracic abnormalities. She is seen today in consult on the regular medical floor. She is currently sitting up in bed. Awake and alert in no acute distress. Denies any chest discomfort. No shortness of breath, cough or congestion. No palpitations, dizziness or lightheadedness. She is maintaining good O2 saturation in the mid 90s on room air. She is afebrile. Hemodynamically stable. White count 9.7. Hemoglobin 14.4. Platelets 403. Glucose 186. She remains on a heparin drip. She has been educated regarding the use of the incentive spirometer. The patient is seen today July 02, 2024 in follow-up on the regular medical floor. She is currently sitting up at the bedside. Awake and alert in no acute distress. Maintaining good O2 saturations in the 90s on room air. She denies any shortness of breath, cough or congestion. She denies any chest pain or palpitations. She is working well with the incentive spirometer. She remains on a heparin drip. Glucose 154. Remains on Levemir with a NovoLog sliding scale. The patient is seen today July 03, 2024 in follow-up on the regular medical floor. She is sitting up having breakfast. Awake and alert in no acute distress. Continues to maintain good O2 saturations in the 90s on room air. She continues to work with the incentive spirometer. Chest x-ray reveals no acute cardiopulmonary process. She denies any chest pain, palpitations or dizziness. White count 10.6. Hemoglobin 14.5. Platelets 503. INR 1.0. Sodium 141. Potassium 4.3. Bicarb 21. BUN 11. Creatinine 0.6. Glucose 122. She remains on a heparin drip. The patient is seen today July 04, 2024 in follow-up in the intensive care unit. She is just back from her surgery. She had undergone a coronary artery bypass grafting x 3 with a YIN to the LAD, saphenous vein graft to the OM 2 and PDA. Left atrial clipping. He is intubated on the mechanical ventilator currently on assist-control mode at a rate of 12, tidal volume 400, FiO2 100%, PEEP of 5. Blood gases revealed a PaO2 of 209, pCO2 49 and a pH of 7.30. She is sedated on propofol currently at 20 mcg/kg/min. Primacor at 0.1 mcg/kg/min. Insulin drip at 3 units/h. Nitroglycerin drip at 5 mcg/min. Normal saline at 50 mL/h. She is on heparin for DVT prophylaxis. Initiated on bronchodilators. Right IJ [place] catheter in place. Current cardiac output 5.9. Cardiac index 3.2. PA pressure 26/10. CVP 12. She has left and mediastinal chest tubes in place. Chest x-ray reveals new small to moderate right greater than left pleural effusions. Interstitial edema. No evidence of pneumothorax. White count 15.2. Hemoglobin 7.2. Platelets 219. INR 1.3. Sodium 138. Potassium 3.8. Bicarb 24. BUN 9. Creatinine 0.47. Glucose 139. The patient is seen today July 05, 2024 in follow-up in the intensive care unit. She is currently sitting up in a chair at the bedside. She is short of breath this morning. She is on 15 L high flow nasal cannula. Arterial blood gases revealed a PaO2 of 61, pCO2 of 39 and a pH of 7.37. The patient had some issues with low blood pressure through the night and was given albumin. She was initiated on dopamine at 2 mcg/kg/min. She is still on insulin at 7 units an hour. Normal saline at 50 mL/h. Chest x-ray shows bilateral pleural effusions/atelectasis. Cardiac output 5.5. Cardiac index 3.9. PA pressures 34/10, CVP of 12. Glucose 140. White count 14.9. Hemoglobin 7.8. Platelets 372. INR 1.3. Sodium 137. Potassium 4.4. Bicarb 22. BUN 8. Creatinine 0.47. The patient is seen today July 06, 2024 in follow-up in the intensive care unit. She is awake and alert in no acute distress. Sitting up in a chair. She is is still requiring 12 L high flow nasal cannula to maintain O2 saturations in the 90s. She did utilize BiPAP most of the night at 10/5 and 60% FiO2. Chest x-ray shows persistent mild cardiomegaly with central vascular congestion and small bilateral pleural effusions consistent with fluid volume overload. She remains on normal saline at 30 mL/h. Insulin drip at 4 units/h. Left mediastinal chest tubes remain in place. [place] catheter in place. Cardiac output 6.7. Cardiac index 3.5. Pressure 29/17. CVP 7. White count 19.1. He moglobin 8.0. Platelets 300,000. Sodium 136. Potassium 4.1. Bicarb 18. BUN 12. Creatinine 0.9. Glucose 136. She is working well with the incentive spirometer. The patient is seen today July 07, 2024 in follow-up in the intensive care unit. She is awake and alert in no acute distress. Sitting up in a chair at the bedside. Maintaining good O2 saturations in the 90s on 7 L high flow nasal cannula. Chest x-ray continues to show bilateral atelectasis and effusions. She needs increased encouragement regarding the use the incentive spirometer. Only pulling approximately 500 mL. She is continued on DuoNeb inhalations. Heparin for DVT prophylaxis. Protonix for GI prophylaxis. She received Lasix 20 mg IVP x 1. Mediastinal chest tube was removed. Left pleural chest tube remains in place. She is status post 1 unit of packed red blood cells this admission. Current hemoglobin 8.3. Platelets 312. White count 18.5. Sodium 137. Potassium 4.1. Bicarb 20. BUN 17. Creatinine 0.6. Glucose 116. Objective - Vital Signs Vital signs: Vital Signs Temp 97.6 F 07/07/24 08:00 Pulse 87 07/07/24 11:47 Resp 23 07/07/24 09:00 BP 108/68 07/07/24 09:00 Pulse Ox 96 07/07/24 09:00 FiO2 60 07/06/24 01:00 Intake & Output 07/06/24 07/07/24 07/07/24 18:59 06:59 18:59 Intake Total 621.492 498.567 205.144 Output Total 1700 530 180 Balance -1078.508 -31.433 25.144 Weight 84.3 kg Intake: IV 447 396 99 0.9% 370 360 90 CO/CI 20 Pressure Bags 57 36 9 Intake, IV Titration 24.492 2.567 6.144 Amount Insulin Regular 100 unit 24.492 2.567 6.144 In Sodium Chloride 0.9% 100 ml @ Per Protocol IV .Q0M [facility] Rx#:[id number] Oral 150 100 100 Output: Chest Tube Drainage 310 230 80 Chest Tube Left Pleural 230 140 40 Chest Tube Mediastinal 80 90 40 Urine 1390 300 100 Other: Voiding Method Indwelling Catheter Bedside Commode Bedside Commode ABP, PAP, CO, CI - Last Documented Arterial Blood Pressure 121/70 Pulmonary Artery Pressure 40/23 Cardiac Output 6.7 Cardiac Index 3.5 - Exam GENERAL EXAM: Awake, pleasant 64-year-old female, on 7 L high flow nasal cannula, up in a chair, in no respiratory distress. HEAD: Normocephalic. EYES: Sluggish reaction of pupils, equal size. NOSE: Clear with pink turbinates. THROAT: No erythema or exudates. NECK: Right Cordis in place. No masses, no JVD. CHEST: Sternal dressing dry and intact. Heart hugger in place. Left chest tube in place. LUNGS: Equal air entry with crackles at the bilateral bases right greater than left. CVS: S1 and S2 normal with no audible murmur, regular rhythm. ABDOMEN: No hepatosplenomegaly, no guarding or rigidity. SPINE: No scoliosis or deformity SKIN: No rashes CENTRAL NERVOUS SYSTEM: No focal deficits, tone is normal in all 4 extremities. EXTREMITIES: There is 1+ peripheral edema. No clubbing, no cyanosis. Peripheral pulses are intact. - Labs CBC & Chem 7: 07/07/24 06:12 07/07/24 06:12 Labs: Abnormal Lab Results - Last 24 Hours (Table) 07/03/24 07/06/24 07/06/24 Range/Units 05:33 12:11 14:15 WBC (3.8-10.6) k/uL RBC (3.80-5.40) m/uL Hgb (11.4-16.0) gm/dL Hct (34.0-46.0) % Neutrophils # (1.3-7.7) k/uL Carbon Dioxide (22-30) mmol/L Glucose (74-99) mg/dL POC Glucose (mg/dL) 142 H 165 H (70-110) mg/dL Total Bilirubin (0.2-1.3) mg/dL Total Protein (6.3-8.2) g/dL Crossmatch See Detail 07/06/24 07/06/24 07/06/24 Range/Units 18:21 20:16 22:05 WBC (3.8-10.6) k/uL RBC (3.80-5.40) m/uL Hgb (11.4-16.0) gm/dL Hct (34.0-46.0) % Neutrophils # (1.3-7.7) k/uL Carbon Dioxide (22-30) mmol/L Glucose (74-99) mg/dL POC Glucose (mg/dL) 112 H 122 H 119 H (70-110) mg/dL Total Bilirubin (0.2-1.3) mg/dL Total Protein (6.3-8.2) g/dL Crossmatch 07/07/24 07/07/24 07/07/24 Range/Units 04:29 06:12 06:12 WBC 18.5 H (3.8-10.6) k/uL RBC 2.83 L (3.80-5.40) m/uL Hgb 8.3 L (11.4-16.0) gm/dL Hct 25.7 L (34.0-46.0) % Neutrophils # 15.8 H (1.3-7.7) k/uL Carbon Dioxide 20 L (22-30) mmol/L Glucose 116 H (74-99) mg/dL POC Glucose (mg/dL) 131 H (70-110) mg/dL Total Bilirubin 2.0 H (0.2-1.3) mg/dL Total Protein 5.8 L (6.3-8.2) g/dL Crossmatch 07/07/24 07/07/24 07/07/24 Range/Units 06:57 08:09 10:34 WBC (3.8-10.6) k/uL RBC (3.80-5.40) m/uL Hgb (11.4-16.0) gm/dL Hct (34.0-46.0) % Neutrophils # (1.3-7.7) k/uL Carbon Dioxide (22-30) mmol/L Glucose (74-99) mg/dL POC Glucose (mg/dL) 134 H 139 H 181 H (70-110) mg/dL Total Bilirubin (0.2-1.3) mg/dL Total Protein (6.3-8.2) g/dL Crossmatch Assessment and Plan Assessment: Acute non-ST elevation myocardial infarction and found to have significant trip le-vessel coronary artery disease. Status post coronary artery bypass grafting x 3 with a YIN to the LAD, saphenous vein graft to the OM 2, PDA. Left atrial clipping. Postoperative day #3 Mechanical ventilator management, expected outcome of surgery, recovered Acute hypoxemic respiratory failure secondary to fluid volume overload, currently on 7 L high flow nasal cannula Family history of early coronary artery disease with her father having bypass at the age of 40 Diabetes mellitus Hyperlipidemia Lifelong non-smoker Plan: The patient was seen and evaluated Chest x-ray, labs and medications reviewed Encouraged the increased use of the incentive spirometer Received Lasix 20 mg IVP x 1 Continue bronchodilators Heparin for DVT prophylaxis Protonix for GI prophylaxis Titrate down the FiO2 as tolerated Increase her activity as tolerated We will continue to follow I have personally seen and examined the patient, performed the documentation and the assessment and plan as written. Number of minutes spent on the visit: 20 Dictation was produced using [employer] dictation software. Please excuse any grammatical, word or spelling errors.
[2024-07-07] MEDS: INSULIN ASPART (NovoLOG) 100 UNIT/ML VIAL SQ SCH (12:21)
[2024-07-07] MEDS: FUROSEMIDE 10 MG/ML 2 ML VIAL IV ONE ×2 (12:22→17:55)
[2024-07-07] MEDS: MAGNESIUM HYDROXIDE 2,400 MG/30 ML CUP PO PRN (12:29)
[2024-07-07 16:00] LABS: Glucose,Whole Blood 192 mg/dL (70-110)
[2024-07-07 20:39] LABS: Glucose,Whole Blood 228 mg/dL (70-110)
[2024-07-07] MEDS: INSULIN DETEMIR (LEVEMIR) 100 UNIT/ML SYR SQ SCH (20:55)
--- NOTE | 2024-07-08 03:41 | PN ---
PROGRESS NOTE DATE OF SERVICE: 07/07/2024 CHIEF COMPLAINT: Status post CABG. HISTORY OF PRESENT ILLNESS: This lady is doing fairly well following her coronary artery bypass graft for her triple-vessel disease with NSTEMI. She has been having a little bit of difficulty with shortness of breath. Her recent x-ray demonstrated very small left-sided pneumothorax and small bilateral pleural effusions. White count is 18,300. Hemoglobin is 8.3. Blood sugars are good. PHYSICAL EXAMINATION: GENERAL: She is sitting in chair with high-flow nasal O2. CHEST: Breath sounds are heard bilaterally. Chest tubes are still in place. CARDIAC: Sinus. IMPRESSION: 1. Status post coronary artery bypass graft. 2. Type 2 diabetes. PLAN: Continue to follow with Cardiology and Cardiac Surgery. Her insulin will be switched over to intermediate acting insulin than sliding scale. MMODL / IJN: [id number] /
--- NOTE | 2024-07-08 04:08 | PN ---
PROGRESS NOTE DATE OF SERVICE: 07/06/2024 CHIEF COMPLAINT: Status post CABG and diabetes. HISTORY OF PRESENT ILLNESS: This lady is doing fairly well, but she is having a little bit of trouble with shortness of breath. Blood pressure has been fluctuating. She has had no chest pain, confusion, fever, chills, etc. LABORATORY DATA: White count is 19,100. Hemoglobin is 8. PHYSICAL EXAMINATION: VITAL SIGNS: Blood pressure is 90/60. GENERAL: She is awake and alert. CHEST: Breath sounds are heard bilaterally. CARDIAC: She is in sinus rhythm. IMPRESSION: 1. Status post coronary artery bypass graft. 2. Type 2 diabetes. 3. Shortness of breath. PLAN: No change in her program from my perspective at this time. Blood sugars are doing very well. MMODL / IJN: [id number] /
[2024-07-08 06:34] LABS: HGB 8.3 gm/dL (11.4-16.0); MCH 29.4 pg (25.0-35.0); MCHC 33.2 g/dL (31.0-37.0); MCV 88.6 fL (80.0-100.0); Platelet Count 366 k/uL (150-450); RBC 2.82 m/uL (3.80-5.40); RDW 14.2 % (11.5-15.5); WBC 12.4 k/uL (3.8-10.6)
[2024-07-08 06:59] LABS: African American GFR (CKD) >90 (>60 ml/min/1.73 sqM); Anion Gap 10 mmol/L; Blood Urea Nitrogen 20 mg/dL (7-17); Calcium 8.8 mg/dL (8.4-10.2); Carbon Dioxide 27 mmol/L (22-30); Chloride 100 mmol/L (98-107); Glucose 151 mg/dL (74-99); Magnesium 2.4 mg/dL (1.6-2.3); Non-African American GFR(CKD) >90 (>60 ml/min/1.73 sqM); Potassium 3.7 mmol/L (3.5-5.1); Sodium 137 mmol/L (137-145)
[2024-07-08 07:09] LABS: Glucose,Whole Blood 149 mg/dL (70-110)
[2024-07-08] MEDS: POTASSIUM BICARBONATE/CIT AC 20 MEQ TABLET.EFF PO ONE (08:02)
[2024-07-08] MEDS: POTASSIUM BICARBONATE/CIT AC 20 MEQ TABLET.EFF PO SCH (08:02)
[2024-07-08] MEDS: FUROSEMIDE 10 MG/ML 2 ML VIAL IV SCH (08:03)
--- NOTE | 2024-07-08 08:40 | P.PN ---
Subjective Progress Note Date: 07/08/24 Principal diagnosis: Triple-vessel coronary artery disease, non-STEMI this admission. History of insulin-dependent diabetes uncontrolled with hyperglycemia, hyperlipidemia, lifelong non-smoker, family history of premature coronary artery disease, father had CABG at 40 years old POD #4 off-pump coronary artery bypass grafting 3 with YIN to LAD, SVG's to second obtuse marginal and posterior descending coronary arteries.Ligation of the left atrial appendage with 35 mm AtriCure clip, endoscopic vein harvest of the right greater saphenous vein, placement of Right femoral arterial line Postoperative acute blood loss anemia, expected given hemodilution Hypotension secondary to fluid shifting The patient was seen and examined this morning sitting up in a recliner in the intensive care unit in no acute distress eating breakfast. Currently sinus rhythm with heart rate in the 90s, blood pressure stable this morning. States expected postsurgical pain is mostly controlled with current medication regimen, especially since mediastinal chest tube was discontinued yesterday. Does still get winded with ambulation but overall respiratory status improving, off BiPAP, weaned down to 2 L nasal cannula with oxygen saturation in the mid to high 90s. Patient has been able to ambulate around the hallway without difficulty. X-ray, labs reviewed, note from radiologist on yesterday's x-ray that patient has small left apical pneumothorax which is inconsequential. Left pleural chest tube remains. Transfer orders were placed yesterday for 3 S. cardiac stepdown unit, there is no bed availability. No other new concerns. Objective - Vital Signs Vital signs: Vital Signs Temp 97.9 F 07/08/24 04:00 Pulse 87 07/08/24 04:00 Resp 13 07/08/24 04:00 BP 118/71 07/08/24 04:00 Pulse Ox 98 07/08/24 04:00 FiO2 60 07/06/24 01:00 Intake & Output 07/07/24 07/08/24 07/08/24 18:59 06:59 18:59 Intake Total 803.144 250 Output Total 1440 580 Balance -636.856 -330 Weight 85.4 kg Intake: IV 297 0.9% 270 Pressure Bags 27 Intake, IV Titration 6.144 Amount Insulin Regular 100 unit 6.144 In Sodium Chloride 0.9% 100 ml @ Per Protocol IV .Q0M [facility] Rx#:[id number] Oral 500 250 Output: Chest Tube Drainage 140 80 Chest Tube Left Pleural 100 80 Chest Tube Mediastinal 40 Urine 1300 500 Other: Voiding Method Bedside Commode Bedside Commode # Voids 1 # Bowel Movements 0 ABP, PAP, CO, CI - Last Documented Arterial Blood Pressure 121/70 Pulmonary Artery Pressure 40/23 Cardiac Output 6.7 Cardiac Index 3.5 - Exam CONSTITUTIONAL: Appears comfortable, cooperative, no acute distress RESPIRATORY: Lungs sounds diminished in the bases bilaterally. Respirations even, nonlabored. Currently on 2 L nasal cannula with oxygen saturation 98%. Able to achieve 750 mL on incentive spirometry with somewhat better effort. Strong cough. CARDIOVASCULAR: S1, S2 present. Regular rate and rhythm, sinus rhythm on telemetry. Sternum stable. Palpable peripheral pulses bilaterally. Trace generalized edema present. No calf pain or tenderness noted. Heart hugger in place with patient demonstrating appropriate use. Antiembolism stockings, SCDs present. GASTROINTESTINAL: Abdomen soft, nontender, nondistended. Active bowel sounds present 4 quadrants. Tolerating minimal diet. Positive flatus GENITOURINARY: Continues to void, output 1700 mL in the last 24 hours INTEGUMENTARY: Skin is warm and dry. Anterior chest incision well approximated and covered with dry intact dressing. Right lower extremity EVH site well approximated without redness or drainage. NEUROLOGIC: Cranial nerves II through XII intact MUSKULOSKELETAL: Able to move all extremities, strength equal bilaterally PSYCHIATRIC: Alert and oriented to person place and time, appropriate affect, intact judgment and insight INVASIVE LINES AND TUBES: Left pleural chest tubes present and connected to wall suction, no air leaks present, 70 mL serous drainage overnight, 200 mL in the last 24 hours - Allied health notes Allied health notes reviewed: nursing - Labs CBC & Chem 7: 07/08/24 06:17 07/08/24 06:17 Labs: Abnormal Lab Results - Last 24 Hours (Table) 07/03/24 07/07/24 07/07/24 Range/Units 05:33 10:34 12:05 WBC (3.8-10.6) k/uL RBC (3.80-5.40) m/uL Hgb (11.4-16.0) gm/dL Hct (34.0-46.0) % BUN (7-17) mg/dL Glucose (74-99) mg/dL POC Glucose (mg/dL) 181 H 139 H (70-110) mg/dL Magnesium (1.6-2.3) mg/dL Crossmatch See Detail 07/07/24 07/07/24 07/08/24 Range/Units 15:59 20:38 06:17 WBC 12.4 H (3.8-10.6) k/uL RBC 2.82 L (3.80-5.40) m/uL Hgb 8.3 L (11.4-16.0) gm/dL Hct 25.0 L (34.0-46.0) % BUN (7-17) mg/dL Glucose (74-99) mg/dL POC Glucose (mg/dL) 192 H 228 H (70-110) mg/dL Magnesium (1.6-2.3) mg/dL Crossmatch 07/08/24 07/08/24 Range/Units 06:17 07:07 WBC (3.8-10.6) k/uL RBC (3.80-5.40) m/uL Hgb (11.4-16.0) gm/dL Hct (34.0-46.0) % BUN 20 H (7-17) mg/dL Glucose 151 H (74-99) mg/dL POC Glucose (mg/dL) 149 H (70-110) mg/dL Magnesium 2.4 H (1.6-2.3) mg/dL Crossmatch - Imaging and Cardiology Chest x-ray: image reviewed Assessment and Plan Assessment: Triple-vessel coronary artery disease, non-STEMI this admission, status post three-vessel off-pump CABG Chest pain, shortness of breath secondary to above Postoperative acute blood loss anemia, expected given hemodilution Hypotension secondary to fluid shifting and anemia, improved with blood transfusion History of insulin-dependent diabetes with uncontrolled hyperglycemia, hemoglobin A1c 9.8% Hyperlipidemia, cholesterol 206, LDL 124, triglycerides 239 Lifelong non-smoker, preoperative FEV1 90% of predicted Family history of premature coronary artery disease, father had CABG at 40 years old Plan: Continue to maximize medical therapy with aspirin, statin, Plavix, beta-marcia. Will increase beta-marcia therapy as tolerated Wean oxygen as tolerated. Encourage incentive spirometry use 10 times every hour while awake. Bronchodilators per pulmonology Increase activity as tolerated. PT/OT/cardiac rehab consulted Will monitor daily labs and x-rays. Electrolyte replacement per protocol. Will give 20 mg IVP lasix twice daily GI/DVT prophylaxis Pain control per current medication regimen Insulin management per internal medicine Likely will discontinue left pleural chest tube today Continue to monitor and record strict accurate intake and output Daily weights Transfer orders laced for 3 S. cardiac stepdown, may transfer when bed available Discharge planning in progress, anticipate discharge to home with home care soon More recommendations to follow based on patient's progress
--- NOTE | 2024-07-08 08:43 | XR ---
EXAMINATION TYPE: XR chest 2V DATE OF EXAM: 07/08/2024 5:52 AM COMPARISON: 07/07/2024 CLINICAL INDICATION: Female, 64 years old with history of post cardiac surgery, previous left apical pneumothorax previous abnormal chest TECHNIQUE: XR chest 2V view(s) obtained. FINDINGS: The heart size is normal. The pulmonary vasculature is normal. Left lower lobe infiltrate. Remains present slightly improved. Right lower lobe infiltrate is improvi ng. Small left apical pneumothorax is slightly diminished from comparison. IMPRESSION: 1. Diminishing left apical pneumothorax. 2. Improving bibasilar infiltrates. [facility], , 07/08/2024 8:41 AM
[2024-07-08 09:34] VITALS: BMI 32.3
[2024-07-08 11:12] LABS: Glucose,Whole Blood 192 mg/dL (70-110)
--- NOTE | 2024-07-08 13:46 | P.PN ---
Subjective Progress Note Date: 07/08/24 This is a very pleasant 64-year-old female patient with a known history of hyperlipidemia, diabetes mellitus and strong family history of coronary artery disease as her father had coronary artery bypass surgery at 40 years old. She is a lifelong non-smoker. She had presented to [facility] and was found to have a non-ST segment elevation myocardial infarction. She had a cardiac catheterization done there revealing significant triple-vessel coronary artery disease. She was transferred here on June 29, 2024 for cardiothoracic evaluation. The plan is for revascularization surgery on July 04, 2024. Echocardiogram revealed preserved left ventricular systolic function with an ejection fraction 55 to 60%. Carotid Dopplers revealed no significant stenosis bilaterally. CT scan of the chest revealed no significant thoracic abnormalities. She is seen today in consult on the regular medical floor. She is currently sitting up in bed. Awake and alert in no acute distress. Denies any chest discomfort. No shortness of breath, cough or congestion. No palpitations, dizziness or lightheadedness. She is maintaining good O2 saturation in the mid 90s on room air. She is afebrile. Hemodynamically stable. White count 9.7. Hemoglobin 14.4. Platelets 403. Glucose 186. She remains on a heparin drip. She has been educated regarding the use of the incentive spirometer. The patient is seen today July 02, 2024 in follow-up on the regular medical floor. She is currently sitting up at the bedside. Awake and alert in no acute distress. Maintaining good O2 saturations in the 90s on room air. She denies any shortness of breath, cough or congestion. She denies any chest pain or palpitations. She is working well with the incentive spirometer. She remains on a heparin drip. Glucose 154. Remains on Levemir with a NovoLog sliding scale. The patient is seen today July 03, 2024 in follow-up on the regular medical floor. She is sitting up having breakfast. Awake and alert in no acute distress. Continues to maintain good O2 saturations in the 90s on room air. She continues to work with the incentive spirometer. Chest x-ray reveals no acute cardiopulmonary process. She denies any chest pain, palpitations or dizziness. White count 10.6. Hemoglobin 14.5. Platelets 503. INR 1.0. Sodium 141. Potassium 4.3. Bicarb 21. BUN 11. Creatinine 0.6. Glucose 122. She remains on a heparin drip. The patient is seen today July 04, 2024 in follow-up in the intensive care unit. She is just back from her surgery. She had undergone a coronary artery bypass grafting x 3 with a YIN to the LAD, saphenous vein graft to the OM 2 and PDA. Left atrial clipping. He is intubated on the mechanical ventilator currently on assist-control mode at a rate of 12, tidal volume 400, FiO2 100%, PEEP of 5. Blood gases revealed a PaO2 of 209, pCO2 49 and a pH of 7.30. She is sedated on propofol currently at 20 mcg/kg/min. Primacor at 0.1 mcg/kg/min. Insulin drip at 3 units/h. Nitroglycerin drip at 5 mcg/min. Normal saline at 50 mL/h. She is on heparin for DVT prophylaxis. Initiated on bronchodilators. Right IJ Camanche-Jeanine catheter in place. Current cardiac output 5.9. Cardiac index 3.2. PA pressure 26/10. CVP 12. She has left and mediastinal chest tubes in place. Chest x-ray reveals new small to moderate right greater than left pleural effusions. Interstitial edema. No evidence of pneumothorax. White count 15.2. Hemoglobin 7.2. Platelets 219. INR 1.3. Sodium 138. Potassium 3.8. Bicarb 24. BUN 9. Creatinine 0.47. Glucose 139. The patient is seen today July 05, 2024 in follow-up in the intensive care unit. She is currently sitting up in a chair at the bedside. She is short of breath this morning. She is on 15 L high flow nasal cannula. Arterial blood gases revealed a PaO2 of 61, pCO2 of 39 and a pH of 7.37. The patient had some issues with low blood pressure through the night and was given albumin. She was initiated on dopamine at 2 mcg/kg/min. She is still on insulin at 7 units an hour. Normal saline at 50 mL/h. Chest x-ray shows bilateral pleural effusions/atelectasis. Cardiac output 5.5. Cardiac index 3.9. PA pressures 34/10, CVP of 12. Glucose 140. White count 14.9. Hemoglobin 7.8. Platelets 372. INR 1.3. Sodium 137. Potassium 4.4. Bicarb 22. BUN 8. Creatinine 0.47. The patient is seen today July 06, 2024 in follow-up in the intensive care unit. She is awake and alert in no acute distress. Sitting up in a chair. She is is still requiring 12 L high flow nasal cannula to maintain O2 saturations in the 90s. She did utilize BiPAP most of the night at 10/5 and 60% FiO2. Chest x-ray shows persistent mild cardiomegaly with central vascular congestion and small bilateral pleural effusions consistent with fluid volume overload. She remains on normal saline at 30 mL/h. Insulin drip at 4 units/h. Left mediastinal chest tubes remain in place. Camanche-Jeanine catheter in place. Cardiac output 6.7. Cardiac index 3.5. Pressure 29/17. CVP 7. White count 19.1. He moglobin 8.0. Platelets 300,000. Sodium 136. Potassium 4.1. Bicarb 18. BUN 12. Creatinine 0.9. Glucose 136. She is working well with the incentive spirometer. The patient is seen today July 07, 2024 in follow-up in the intensive care unit. She is awake and alert in no acute distress. Sitting up in a chair at the bedside. Maintaining good O2 saturations in the 90s on 7 L high flow nasal cannula. Chest x-ray continues to show bilateral atelectasis and effusions. She needs increased encouragement regarding the use the incentive spirometer. Only pulling approximately 500 mL. She is continued on DuoNeb inhalations. Heparin for DVT prophylaxis. Protonix for GI prophylaxis. She received Lasix 20 mg IVP x 1. Mediastinal chest tube was removed. Left pleural chest tube remains in place. She is status post 1 unit of packed red blood cells this admission. Current hemoglobin 8.3. Platelets 312. White count 18.5. Sodium 137. Potassium 4.1. Bicarb 20. BUN 17. Creatinine 0.6. Glucose 116. The patient is seen today July 08, 2024 in follow-up in the intensive care unit. She is awake and alert in no acute distress. Currently sitting up in a chair at the bedside. Denies any worsening shortness of breath, cough or congestion. She is maintaining saturations in the 90s on 2 L/min per nasal cannula. She is doing better with the incentive spirometer. Chest x-ray shows diminishing left apical pneumothorax. Improving bibasilar infiltrates. She is status post 1 unit of packed red blood cells this admission. Current hemoglobin 8.3. Platelets 366. Count 12.4. Sodium 137. Potassium 3.7. Bicarb 27. BUN 20. Creatinine 0.66. Glucose 151. She remains on DuoNeb and elations. Heparin for DVT prophylaxis. Transitioned to Levemir and NovoLog sliding scale. Objective - Vital Signs Vital signs: Vital Signs Temp 98.2 F 07/08/24 12:00 Pulse 89 07/08/24 12:00 Resp 20 07/08/24 12:00 BP 110/75 07/08/24 12:00 Pulse Ox 96 07/08/24 12:00 FiO2 60 07/06/24 01:00 Intake & Output 07/07/24 07/08/24 07/08/24 18:59 06:59 18:59 Intake Total 803.144 250 200 Output Total 1440 580 600 Balance -636.856 -330 -400 Weight 85.4 kg 85.4 kg Intake: IV 297 0.9% 270 Pressure Bags 27 Intake, IV Titration 6.144 Amount Insulin Regular 100 unit 6.144 In Sodium Chloride 0.9% 100 ml @ Per Protocol IV .Q0M [facility] Rx#:[id number] Oral 500 250 200 Output: Chest Tube Drainage 140 80 Chest Tube Left Pleural 100 80 Chest Tube Mediastinal 40 Urine 1300 500 600 Other: Voiding Method Bedside Commode Bedside Commode Bedside Commode # Voids 1 # Bowel Movements 0 1 ABP, PAP, CO, CI - Last Documented Arterial Blood Pressure 121/70 Pulmonary Artery Pressure 40/23 Cardiac Output 6.7 Cardiac Index 3.5 - Exam GENERAL EXAM: Awake, 64-year-old female, on 2 L high flow nasal cannula, up in a chair, in no respiratory distress. HEAD: Normocephalic. EYES: Sluggish reaction of pupils, equal size. NOSE: Clear with pink turbinates. THROAT: No erythema or exudates. NECK: Right Cordis in place. No masses, no JVD. CHEST: Sternal dressing dry and intact. Heart hugger in place. LUNGS: Equal air entry with crackles at the bilateral bases right greater than left. CVS: S1 and S2 normal with no audible murmur, regular rhythm. ABDOMEN: No hepatosplenomegaly, no guarding or rigidity. SPINE: No scoliosis or deformity SKIN: No rashes CENTRAL NERVOUS SYSTEM: No focal deficits, tone is normal in all 4 extremities. EXTREMITIES: There is 1+ peripheral edema. No clubbing, no cyanosis. Periphera l pulses are intact. - Labs CBC & Chem 7: 07/08/24 06:17 07/08/24 06:17 Labs: Abnormal Lab Results - Last 24 Hours (Table) 07/07/24 07/07/24 07/08/24 Range/Units 15:59 20:38 06:17 WBC 12.4 H (3.8-10.6) k/uL RBC 2.82 L (3.80-5.40) m/uL Hgb 8.3 L (11.4-16.0) gm/dL Hct 25.0 L (34.0-46.0) % BUN (7-17) mg/dL Glucose (74-99) mg/dL POC Glucose (mg/dL) 192 H 228 H (70-110) mg/dL Magnesium (1.6-2.3) mg/dL 07/08/24 07/08/24 07/08/24 Range/Units 06:17 07:07 11:11 WBC (3.8-10.6) k/uL RBC (3.80-5.40) m/uL Hgb (11.4-16.0) gm/dL Hct (34.0-46.0) % BUN 20 H (7-17) mg/dL Glucose 151 H (74-99) mg/dL POC Glucose (mg/dL) 149 H 192 H (70-110) mg/dL Magnesium 2.4 H (1.6-2.3) mg/dL Assessment and Plan Assessment: Acute non-ST elevation myocardial infarction and found to have significant triple-vessel coronary artery disease. Status post coronary artery bypass graft ing x 3 with a YIN to the LAD, saphenous vein graft to the OM 2, PDA. Left atrial clipping. Postoperative day #4 Mechanical ventilator management, expected outcome of surgery, recovered Acute hypoxemic respiratory failure secondary to fluid volume overload, currently on 2 L high flow nasal cannula Family history of early coronary artery disease with her father having bypass at the age of 40 Diabetes mellitus Hyperlipidemia Lifelong non-smoker Plan: The patient was seen and evaluated Chest x-ray, labs and medications reviewed X-ray showing improvement Improved and on 2 L nasal cannula Continues to work well with the incentive spirometer Continue bronchodilators Heparin for DVT prophylaxis Protonix for GI prophylaxis Increase her activity as tolerated We will continue to follow I have personally seen and examined the patient, performed the documentation and the assessment and plan as written. Number of minutes spent on the visit: 20 Dictation was produced using el? dictation software. Please excuse any grammatical, word or spelling errors.
[2024-07-08 16:47] LABS: Glucose,Whole Blood 269 mg/dL (70-110)
[2024-07-08 19:38] LABS: Glucose,Whole Blood 190 mg/dL (70-110)
[2024-07-08] MEDS: INSULIN DETEMIR (LEVEMIR) 100 UNIT/ML SYR SQ SCH (20:37)
[2024-07-09] MEDS ORDERED: SENNOSIDES-DOCUSATE SODIUM 1 EACH TAB PO PRN (07:17)
[2024-07-09 07:21] LABS: HCT 24.7 % (34.0-46.0); HGB 8.3 gm/dL (11.4-16.0); MCH 29.8 pg (25.0-35.0); MCHC 33.5 g/dL (31.0-37.0); MCV 88.8 fL (80.0-100.0); Mean Platelet Volume 8.9; Platelet Count 351 k/uL (150-450); RBC 2.78 m/uL (3.80-5.40); RDW 14.5 % (11.5-15.5); WBC 11.1 k/uL (3.8-10.6)
--- NOTE | 2024-07-09 07:34 | XR ---
EXAMINATION TYPE: XR chest 2V DATE OF EXAM: 07/09/2024 6:37 AM COMPARISON: Chest radiographs from 07/08/2024 CLINICAL INDICATION: Female, 64 years old with history of Postcardiac surgery; [facility] TECHNIQUE: XR chest 2V Frontal and lateral views of the chest. FINDINGS: Lungs/Pleura: No evidence of focal consolidation or pneumothorax. Blunting of the costophrenic angles is present. Pulmonary vascularity: Unremarkable. Heart/mediastinum: Cardiomediastinal silhouette is enlarged and stable. Left atrial appendage occlusi on device is present. Musculoskeletal: No acute osseous pathology. Midline sternotomy wires are noted. Left thoracotomy tube without evidence for pneumothorax. IMPRESSION: Postsurgical changes with mild pulmonary edema and small bilateral pleural effusions. [facility], , 07/09/2024 7:32 AM
[2024-07-09 08:27] LABS: African American GFR (CKD) >90 (>60 ml/min/1.73 sqM); Anion Gap 9 mmol/L; Blood Urea Nitrogen 15 mg/dL (7-17); Calcium 8.4 mg/dL (8.4-10.2); Carbon Dioxide 30 mmol/L (22-30); Chloride 102 mmol/L (98-107); Glucose 130 mg/dL (74-99); Magnesium 2.1 mg/dL (1.6-2.3); Non-African American GFR(CKD) >90 (>60 ml/min/1.73 sqM); Potassium 3.8 mmol/L (3.5-5.1); Sodium 141 mmol/L (137-145)
--- NOTE | 2024-07-09 08:53 | P.PN ---
Subjective Progress Note Date: 07/09/24 Principal diagnosis: Triple-vessel coronary artery disease, non-STEMI this admission. History of insulin-dependent diabetes uncontrolled with hyperglycemia, hyperlipidemia, lifelong non-smoker, family history of premature coronary artery disease, father had CABG at 40 years old POD #5 off-pump coronary artery bypass grafting 3 with YIN to LAD, SVG's to second obtuse marginal and posterior descending coronary arteries.Ligation of the left atrial appendage with 35 mm AtriCure clip, endoscopic vein harvest of the right greater saphenous vein, placement of Right femoral arterial line Postoperative acute blood loss anemia, expected given hemodilution Hypotension secondary to fluid shifting, resolved The patient was seen and examined this morning sitting up in a recliner in the cardiac stepdown unit in no acute distress eating breakfast. Currently sinus rhythm with heart rate in the 90s, blood pressure stable and increasing this morning. States expected postsurgical pain is mostly controlled with current medication regimen. Does still get winded with ambulation but overall respiratory status improving, down to 2 L nasal cannula with oxygen saturation in the mid to high 90s. Patient has been able to ambulate around the hallway without difficulty. X-ray, labs reviewed. Left pleural chest tube remains. Discussed with Dr. Oconnor. No other new concerns. Objective - Vital Signs Vital signs: Vital Signs Temp 98.2 F 07/09/24 04:00 Pulse 92 07/09/24 04:00 Resp 19 07/09/24 04:00 BP 149/82 07/09/24 04:00 Pulse Ox 94 L 07/09/24 04:00 FiO2 60 07/06/24 01:00 Intake & Output 07/08/24 07/09/24 07/09/24 18:59 06:59 18:59 Intake Total 318 40 Output Total 600 440 Balance -282 -400 Weight 85.4 kg 82.4 kg Intake: IV 40 Invasive Line 7 20 Invasive Line 8 20 Oral 318 Output: Chest Tube Drainage 140 Chest Tube Left Pleural 140 Urine 600 300 Other: Voiding Method Bedside Commode Toilet # Voids 1 # Bowel Movements 1 ABP, PAP, CO, CI - Last Documented Arterial Blood Pressure 121/70 Pulmonary Artery Pressure 40/23 Cardiac Output 6.7 Cardiac Index 3.5 - Exam CONSTITUTIONAL: Appears comfortable, cooperative, no acute distress RESPIRATORY: Lungs sounds diminished in the bases bilaterally. Respirations even, nonlabored. Currently on 2 L nasal cannula with oxygen saturation 94%. Able to achieve 750 mL on incentive spirometry with somewhat better effort. Strong cough. CARDIOVASCULAR: S1, S2 present. Regular rate and rhythm, sinus rhythm on telemetry. Sternum stable. Palpable peripheral pulses bilaterally. Trace generalized edema present. No calf pain or tenderness noted. Heart hugger in place with patient demonstrating appropriate use. Antiembolism stockings, SCDs present. GASTROINTESTINAL: Abdomen soft, nontender, nondistended. Active bowel sounds present 4 quadrants. Tolerating minimal diet. Positive bowel movement yesterday and this morning GENITOURINARY: Continues to void, output not documented completely in [employer] INTEGUMENTARY: Skin is warm and dry. Anterior chest incision well approximated and covered with dry intact dressing. Right lower extremity EVH site well approximated without redness or drainage. NEUROLOGIC: Cranial nerves II through XII intact MUSKULOSKELETAL: Able to move all extremities, strength equal bilaterally PSYCHIATRIC: Alert and oriented to person place and time, appropriate affect, intact judgment and insight INVASIVE LINES AND TUBES: Left pleural chest tubes present to waterseal, no air leaks present, 140 mL serous drainage overnight, 300 mL in the last 24 hours - Allied health notes Allied health notes reviewed: nursing - Labs CBC & Chem 7: 07/09/24 05:15 07/09/24 05:15 Labs: Abnormal Lab Results - Last 24 Hours (Table) 07/08/24 07/08/24 07/08/24 Range/Units 11:11 16:42 19:36 WBC (3.8-10.6) k/uL RBC (3.80-5.40) m/uL Hgb (11.4-16.0) gm/dL Hct (34.0-46.0) % Glucose (74-99) mg/dL POC Glucose (mg/dL) 192 H 269 H 190 H (70-110) mg/dL 07/09/24 07/09/24 Range/Units 05:15 05:15 WBC 11.1 H (3.8-10.6) k/uL RBC 2.78 L (3.80-5.40) m/uL Hgb 8.3 L (11.4-16.0) gm/dL Hct 24.7 L (34.0-46.0) % Glucose 130 H (74-99) mg/dL POC Glucose (mg/dL) (70-110) mg/dL - Imaging and Cardiology Chest x-ray: report reviewed, image reviewed Assessment and Plan Assessment: Triple-vessel coronary artery disease, non-STEMI this admission, status post three-vessel off-pump CABG Chest pain, shortness of breath secondary to above Postoperative acute blood loss anemia, expected given hemodilution Hypotension secondary to fluid shifting and anemia, improved with blood transfusion History of insulin-dependent diabetes with uncontrolled hyperglycemia, hemoglobin A1c 9.8% Hyperlipidemia, cholesterol 206, LDL 124, triglycerides 239 Lifelong non-smoker, preoperative FEV1 90% of predicted Family history of premature coronary artery disease, father had CABG at 40 years old Plan: Continue to maximize medical therapy with aspirin, statin, Plavix, beta-marcia. Will increase beta-marcia therapy as tolerated, increased to 50 mg twice daily today Wean oxygen as tolerated. Encourage incentive spirometry use 10 times every hour while awake. Bronchodilators per pulmonology Increase activity as tolerated. PT/OT/cardiac rehab consulted Will monitor daily labs and x-rays. Electrolyte replacement per protocol. Continue IV lasix twice daily GI/DVT prophylaxis Pain control per current medication regimen Insulin management per internal medicine Will continue left pleural chest tube for another 24 hours, monitor and record output Continue to monitor and record strict accurate intake and output Daily weights Discharge planning in progress, anticipate discharge to home with home care soon More recommendations to follow based on patient's progress
[2024-07-09] MEDS: METOPROLOL TARTRATE 50 MG TAB PO SCH (10:07)
[2024-07-09] MEDS: POTASSIUM BICARBONATE/CIT AC 20 MEQ TABLET.EFF PO SCH (10:08)
[2024-07-09] MEDS: DAPAGLIFLOZIN PROPANEDIOL 10 MG TABLET PO SCH (10:09)
[2024-07-09 11:47] LABS: Glucose,Whole Blood 208 mg/dL (70-110)
--- NOTE | 2024-07-09 12:39 | P.PN ---
Subjective Progress Note Date: 07/09/24 Principal diagnosis: Status post CABG. This is a very pleasant 64-year-old female patient with a known history of hyperlipidemia, diabetes mellitus and strong family history of coronary artery disease as her father had coronary artery bypass surgery at 40 years old. She is a lifelong non-smoker. She had presented to [facility] and was found to have a non-ST segment elevation myocardial infarction. She had a cardiac catheterization done there revealing significant triple-vessel coronary artery disease. She was transferred here on June 29, 2024 for cardiothoracic evaluation. The plan is for revascularization surgery on July 04, 2024. Echocardiogram revealed preserved left ventricular systolic function with an ejection fraction 55 to 60%. Carotid Dopplers revealed no significant stenosis bilaterally. CT scan of the chest revealed no significant thoracic abnormalities. She is seen today in consult on the regular medical floor. She is currently sitting up in bed. Awake and alert in no acute distress. Denies any chest discomfort. No shortness of breath, cough or congestion. No palpitations, dizziness or lightheadedness. She is maintaining good O2 saturation in the mid 90s on room air. She is afebrile. Hemodynamically stable. White count 9.7. Hemoglobin 14.4. Platelets 403. Glucose 186. She remains on a heparin drip. She has been educated regarding the use of the incentive spirometer. The patient is seen today July 02, 2024 in follow-up on the regular medical floor. She is currently sitting up at the bedside. Awake and alert in no acute distress. Maintaining good O2 saturations in the 90s on room air. She denies any shortness of breath, cough or congestion. She denies any chest pain or palpitations. She is working well with the incentive spirometer. She remains on a heparin drip. Glucose 154. Remains on Levemir with a NovoLog sliding scale. The patient is seen today July 03, 2024 in follow-up on the regular medical floor. She is sitting up having breakfast. Awake and alert in no acute dis tress. Continues to maintain good O2 saturations in the 90s on room air. She continues to work with the incentive spirometer. Chest x-ray reveals no acute cardiopulmonary process. She denies any chest pain, palpitations or dizziness. White count 10.6. Hemoglobin 14.5. Platelets 503. INR 1.0. Sodium 141. Potassium 4.3. Bicarb 21. BUN 11. Creatinine 0.6. Glucose 122. She remains on a heparin drip. The patient is seen today July 04, 2024 in follow-up in the intensive care unit. She is just back from her surgery. She had undergone a coronary artery bypass grafting x 3 with a YIN to the LAD, saphenous vein graft to the OM 2 and PDA. Left atrial clipping. He is intubated on the mechanical ventilator currently on assist-control mode at a rate of 12, tidal volume 400, FiO2 100%, PEEP of 5. Blood gases revealed a PaO2 of 209, pCO2 49 and a pH of 7.30. She is sedated on propofol currently at 20 mcg/kg/min. Primacor at 0.1 mcg/kg/min. Insulin drip at 3 units/h. Nitroglycerin drip at 5 mcg/min. Normal saline at 50 mL/h. She is on heparin for DVT prophylaxis. Initiated on bronchodilators. Right IJ [place] catheter in place. Current cardiac output 5.9. Cardiac index 3.2. PA pressure 26/10. CVP 12. She has left and mediastinal chest tubes in place. Chest x-ray reveals new small to moderate right greater than left pleural effusions. Interstitial edema. No evidence of pneumothorax. White count 15.2. Hemoglobin 7.2. Platelets 219. INR 1.3. Sodium 138. Potassium 3.8. Bicarb 24. BUN 9. Creatinine 0.47. Glucose 139. The patient is seen today July 05, 2024 in follow-up in the intensive care unit. She is currently sitting up in a chair at the bedside. She is short of breath this morning. She is on 15 L high flow nasal cannula. Arterial blood gases revealed a PaO2 of 61, pCO2 of 39 and a pH of 7.37. The patient had some issues with low blood pressure through the night and was given albumin. She was initiated on dopamine at 2 mcg/kg/min. She is still on insulin at 7 units an hour. Normal saline at 50 mL/h. Chest x-ray shows bilateral pleural effusions/atelectasis. Cardiac output 5.5. Cardiac index 3.9. PA pressures 34 /10, CVP of 12. Glucose 140. White count 14.9. Hemoglobin 7.8. Platelets 372. INR 1.3. Sodium 137. Potassium 4.4. Bicarb 22. BUN 8. Creatinine 0.47. The patient is seen today July 06, 2024 in follow-up in the intensive care unit. She is awake and alert in no acute distress. Sitting up in a chair. She is is still requiring 12 L high flow nasal cannula to maintain O2 saturations in the 90s. She did utilize BiPAP most of the night at 10/5 and 60% FiO2. Chest x-ray shows persistent mild cardiomegaly with central vascular congestion and small bilateral pleural effusions consistent with fluid volume overload. She remains on normal saline at 30 mL/h. Insulin drip at 4 units/h. Left mediastinal chest tubes remain in place. [place] catheter in place. Cardiac output 6.7. Cardiac index 3.5. Pressure 29/17. CVP 7. White count 19.1. Hemoglobin 8.0. Platelets 300,000. Sodium 136. Potassium 4.1. Bicarb 18. BUN 12. Creatinine 0.9. Glucose 136. She is working well with the incentive spirometer. The patient is seen today July 07, 2024 in follow-up in the intensive care unit. She is awake and alert in no acute distress. Sitting up in a chair at the bedside. Maintaining good O2 saturations in the 90s on 7 L high flow nasal cannula. Chest x-ray continues to show bilateral atelectasis and effusions. She needs increased encouragement regarding the use the incentive spirometer. Only pulling approximately 500 mL. She is continued on DuoNeb inhalations. Heparin for DVT prophylaxis. Protonix for GI prophylaxis. She received Lasix 20 mg IVP x 1. Mediastinal chest tube was removed. Left pleural chest tube remains in place. She is status post 1 unit of packed red blood cells this admission. Current hemoglobin 8.3. Platelets 312. White count 18.5. Sodium 137. Potassium 4.1. Bicarb 20. BUN 17. Creatinine 0.6. Glucose 116. The patient is seen today July 08, 2024 in follow-up in the intensive care unit. She is awake and alert in no acute distress. Currently sitting up in a chair at the bedside. Denies any worsening shortness of breath, cough or congestion. She is maintaining saturations in the 90s on 2 L/min per nasal c annula. She is doing better with the incentive spirometer. Chest x-ray shows diminishing left apical pneumothorax. Improving bibasilar infiltrates. She is status post 1 unit of packed red blood cells this admission. Current hemoglobin 8.3. Platelets 366. Count 12.4. Sodium 137. Potassium 3.7. Bicarb 27. BUN 20. Creatinine 0.66. Glucose 151. She remains on DuoNeb and elations. Hepari n for DVT prophylaxis. Transitioned to Levemir and NovoLog sliding scale. Progress note dated July 09, 2024. The patient is seen today in room 351. The patient is doing relatively well. She is on 2 L of oxygen. She is not receiving any IV fluids. She does continue to work on her incentive spirometer. She denies any shortness of breath, cough, wheezing, chest tightness, or phlegm production. She also denies any chest pain or pressure. Current labs include a white count 11.1, hemoglobin 8.3, hematocrit 24.7, and a platelet count of 351,000. Sodium 141, potassium 3.8, chlorides 102, CO2 30, BUN 15, creatinine 0.59. Glucose 208. Calcium 8.4, magnesium 2.1. Chest x-ray shows postsurgical changes, mild pulmonary edema, and small bilateral pleural effusions. Objective - Vital Signs Vital signs: Vital Signs Temp 98.2 F 07/09/24 04:00 Pulse 80 07/09/24 12:31 Resp 19 07/09/24 04:00 BP 149/82 07/09/24 04:00 Pulse Ox 94 L 07/09/24 04:00 FiO2 60 07/06/24 01:00 Intake & Output 07/08/24 07/09/24 07/09/24 18:59 06:59 18:59 Intake Total 318 40 540 Output Total 600 440 Balance -282 -400 540 Weight 85.4 kg 82.4 kg Intake: IV 40 Invasive Line 7 20 Invasive Line 8 20 Oral 318 540 Output: Chest Tube Drainage 140 Chest Tube Left Pleural 140 Urine 600 300 Other: Voiding Method Bedside Commode Toilet # Voids 1 # Bowel Movements 1 ABP, PAP, CO, CI - Last Documented Arterial Blood Pressure 121/70 Pulmonary Artery Pressure 40/23 Cardiac Output 6.7 Cardiac Index 3.5 - Exam No acute distress, oriented 3. No respiratory distress. Currently on 2 L. HEENT examination is grossly unremarkable. Mucous membranes are moist. No oral lesions. Neck supple. Full range of motion. No adenopathy thyromegaly or neck vein dis tention. Cardiovascular examination reveals regular rhythm rate. S1-S2 normal. No S3 or S4. No discernible murmur noted. Lungs reveal mostly clear breath sounds. Minimal scattered rhonchi. No wheezes or crackles. The patient coughs when she takes a deep breath. Abdomen soft bowel sounds are heard. No masses or tenderness. Extremities are intact. No cyanosis clubbing or edema. Skin is without rash or lesion. Neurologic examination is brief but nonfocal. - Labs CBC & Chem 7: 07/09/24 05:15 07/09/24 05:15 Labs: Abnormal Lab Results - Last 24 Hours (Table) 07/08/24 07/08/24 07/09/24 Range/Units 16:42 19:36 05:15 WBC 11.1 H (3.8-10.6) k/uL RBC 2.78 L (3.80-5.40) m/uL Hgb 8.3 L (11.4-16.0) gm/dL Hct 24.7 L (34.0-46.0) % Glucose (74-99) mg/dL POC Glucose (mg/dL) 269 H 190 H (70-110) mg/dL 07/09/24 07/09/24 Range/Units 05:15 11:46 WBC (3.8-10.6) k/uL RBC (3.80-5.40) m/uL Hgb (11.4-16.0) gm/dL Hct (34.0-46.0) % Glucose 130 H (74-99) mg/dL POC Glucose (mg/dL) 208 H (70-110) mg/dL Assessment and Plan Assessment: Acute non-ST elevation myocardial infarction and found to have significant triple-vessel coronary artery disease. Status post coronary artery bypass grafting x 3 with a YIN to the LAD, saphenous vein graft to the OM 2, PDA. Left atrial clipping. Postoperative day #5. Mechanical ventilator management, routine. Acute hypoxemic respiratory failure secondary to fluid volume overload, improved. Family history of early coronary artery disease with her father having bypass at the age of 40. Diabetes mellitus. Hyperlipidemia. Lifelong non-smoker. Plan: Plan dated July 09, 2024. The patient is seen today in room 351. She has been weaned down to 2 L of oxygen. She is not receiving any IV fluids. All tubes and lines, have been removed. Currently, the patient is doing well. She denies any chest pain or pressure, palpitations, fluttering, etc. She also denies any shortness of breath, cough, wheezing, chest tightness, or phlegm production. We will continue to follow make recommendations along the way. All labs and x-rays are reviewed. She continues on DVT and GI prophylaxis. We recommend ongoing use of the incentive spirometer, as well as deep breathing, coughing, clearing of secretions. 50 minutes was spent with this patient, which included obtaining the history, examining the patient, reviewing pertinent labs, x-rays, medications, as well as discussing the diagnosis, treatment, and prognosis, with the patient, and the patient's nursing staff. Dictation was produced using [employer] dictation software. Please excuse any grammatical, word or spelling errors. Time with Patient: Greater than 30
[2024-07-09 16:12] LABS: Glucose,Whole Blood 147 mg/dL (70-110)
[2024-07-09 19:45] LABS: Glucose,Whole Blood 146 mg/dL (70-110)
--- NOTE | 2024-07-10 02:11 | PN ---
PROGRESS NOTE DATE OF SERVICE: 07/08/2024 LOCATION: 267. CHIEF COMPLAINT: Status post CABG. HISTORY OF PRESENT ILLNESS: This lady is doing well. Sugars are slightly high, but these can be addressed in more detail as she starts to eat and move around more. She is otherwise doing well. PHYSICAL EXAMINATION: LUNGS: Breath sounds are heard bilaterally. Shortness of breath is improved. IMPRESSION: 1. Status post coronary artery bypass graft for triple-vessel coronary artery disease. 2. Type 2 diabetes. PLAN: She may be moving to step-down unit. MMODL / IJN: [id number] /
--- NOTE | 2024-07-10 02:47 | PN ---
PROGRESS NOTE DATE OF SERVICE: 07/09/2024 CHIEF COMPLAINT: Status post CABG. HISTORY OF PRESENT ILLNESS: This lady is doing fairly well. She has had no difficulties. PHYSICAL EXAMINATION: VITAL SIGNS: Normal. CHEST: Clear. CARDIAC: Normal. ABDOMEN: Soft. IMPRESSION: 1. Status post coronary artery bypass graft. 2. Diabetes. PLAN: Continue to follow and probably increase her long-acting insulin as her sugars are slightly elevated. MMODL / IJN: [id number] /
[2024-07-10 06:28] LABS: Glucose,Whole Blood 125 mg/dL (70-110)
--- NOTE | 2024-07-10 07:40 | XR ---
EXAMINATION TYPE: XR chest 2V DATE OF EXAM: 07/10/2024 7:09 AM COMPARISON: Chest radiograph from one day prior. CLINICAL INDICATION: Female, 64 years old with history of Postcardiac surgery; [facility] TECHNIQUE: XR chest 2V Frontal and lateral views of the chest. FINDINGS: Lungs/Pleura: No evidence of focal consolidation or pneumothorax. Blunting of the costophrenic angles is present. Pulmonary vascularity: Unremarkable. Heart/mediastinum: Cardiomediastinal silhouette is enlarged and stable. Left atrial appendage occlusi on device is present. Musculoskeletal: No acute osseous pathology. Midline sternotomy wires are noted. Left thoracotomy tube without evidence for pneumothorax. IMPRESSION: Postsurgical changes with mild pulmonary edema and small bilateral pleural effusions. [facility], , 07/10/2024 7:38 AM
--- NOTE | 2024-07-10 08:18 | P.PN ---
Subjective Progress Note Date: 07/10/24 Principal diagnosis: Triple-vessel coronary artery disease, non-STEMI this admission. History of insulin-dependent diabetes uncontrolled with hyperglycemia, hyperlipidemia, lifelong non-smoker, family history of premature coronary artery disease, father had CABG at 40 years old POD #6 off-pump coronary artery bypass grafting 3 with YIN to LAD, SVG's to second obtuse marginal and posterior descending coronary arteries.Ligation of the left atrial appendage with 35 mm AtriCure clip, endoscopic vein harvest of the right greater saphenous vein, placement of Right femoral arterial line Postoperative acute blood loss anemia, expected given hemodilution Hypotension secondary to fluid shifting, resolved The patient was seen and examined this morning sitting up in a recliner in the cardiac stepdown unit in no acute distress eating breakfast. Currently sinus rhythm with heart rate in the 90s, blood pressure stable and increasing this morning. Currently on room air with oxygen saturation in the low to mid 90s. Only complaint is dry cough. States expected postsurgical pain is mostly controlled with current medication regimen. Patient has been able to ambulate around the hallway without difficulty. X-ray reviewed, labs pending. Left pleural chest tube remains. Discussed with Dr. Oconnor. No other new concerns. Objective - Vital Signs Vital signs: Vital Signs Temp 98.2 F 07/10/24 04:00 Pulse 87 07/10/24 04:00 Resp 19 07/10/24 04:00 BP 148/83 07/10/24 04:00 Pulse Ox 93 L 07/10/24 04:00 FiO2 60 07/06/24 01:00 Intake & Output 07/09/24 07/10/24 07/10/24 18:59 06:59 18:59 Intake Total 2180 900 Output Total 2610 1 Balance -430 -1051 Weight 82.5 kg Intake: IV 20 20 Invasive Line 8 20 20 Oral 2160 880 Output: Chest Tube Drainage 10 50 Chest Tube Left Pleural 10 50 Urine 2600 1900 Stool 1 Other: Voiding Method Toilet Toilet # Voids 10 # Bowel Movements 0 ABP, PAP, CO, CI - Last Documented Arterial Blood Pressure 121/70 Pulmonary Artery Pressure 40/23 Cardiac Output 6.7 Cardiac Index 3.5 - Exam CONSTITUTIONAL: Appears comfortable, cooperative, no acute distress RESPIRATORY: Lungs sounds diminished in the bases bilaterally. Respirations even, nonlabored. Currently on room air with oxygen saturation 93%. Able to achieve 750 mL on incentive spirometry with somewhat better effort. Strong cough. CARDIOVASCULAR: S1, S2 present. Regular rate and rhythm, sinus rhythm on telemetry. Sternum stable. Palpable peripheral pulses bilaterally. Trace generalized edema present. No calf pain or tenderness noted. Heart hugger in place with patient demonstrating appropriate use. Antiembolism stockings, SCDs present. GASTROINTESTINAL: Abdomen soft, nontender, nondistended. Active bowel sounds p resent 4 quadrants. Tolerating diet. Positive bowel movement 07/09 GENITOURINARY: Continues to void, output 4.5 L in the last 24 hours INTEGUMENTARY: Skin is warm and dry. Anterior chest incision well approximated and covered with dry intact dressing. Right lower extremity EVH site well approximated without redness or drainage. NEUROLOGIC: Cranial nerves II through XII intact MUSKULOSKELETAL: Able to move all extremities, strength equal bilaterally PSYCHIATRIC: Alert and oriented to person place and time, appropriate affect, intact judgment and insight INVASIVE LINES AND TUBES: Left pleural chest tubes present to waterseal, no air leaks present, 60 mL serous drainage in the last 24 hours - Allied health notes Allied health notes reviewed: nursing - Labs CBC & Chem 7: 07/09/24 05:15 07/09/24 05:15 Labs: Abnormal Lab Results - Last 24 Hours (Table) 07/09/24 07/09/24 07/09/24 Range/Units 05:15 11:46 16:10 Glucose 130 H (74-99) mg/dL POC Glucose (mg/dL) 208 H 147 H (70-110) mg/dL 07/09/24 07/10/24 Range/Units 19:44 06:27 Glucose (74-99) mg/dL POC Glucose (mg/dL) 146 H 125 H (70-110) mg/dL - Imaging and Cardiology Chest x-ray: report reviewed, image reviewed Assessment and Plan Assessment: Triple-vessel coronary artery disease, non-STEMI this admission, status post three-vessel off-pump CABG Chest pain, shortness of breath secondary to above Postoperative acute blood loss anemia, expected given hemodilution Hypotension secondary to fluid shifting and anemia, improved with blood transfusion History of insulin-dependent diabetes with uncontrolled hyperglycemia, hemoglobin A1c 9.8% Hyperlipidemia, cholesterol 206, LDL 124, triglycerides 239 Lifelong non-smoker, preoperative FEV1 90% of predicted Family history of premature coronary artery disease, father had CABG at 40 years old Plan: Continue to maximize medical therapy with aspirin, statin, Plavix, beta-marcia. Will increase beta-marcia therapy as tolerated. Low-dose losartan added for afterload reduction Encourage incentive spirometry use 10 times every hour while awake. Bronchodilators per pulmonology Increase activity as tolerated. PT/OT/cardiac rehab consulted Will monitor daily labs and x-rays. Electrolyte replacement per protocol. Continue IV lasix twice daily GI/DVT prophylaxis Pain control per current medication regimen Insulin management per internal medicine Will discontinue left pleural chest tube Continue to monitor and record strict accurate intake and output Daily weights Shower daily starting tomorrow Discharge planning in progress, anticipate discharge to home with home care in the next 24 hours More recommendations to follow based on patient's progress
[2024-07-10 08:47] LABS: HCT 28.7 % (34.0-46.0); HGB 9.5 gm/dL (11.4-16.0); MCH 28.9 pg (25.0-35.0); MCHC 33.2 g/dL (31.0-37.0); MCV 87.1 fL (80.0-100.0); Mean Platelet Volume 7.6; Platelet Count 386 k/uL (150-450); Poikilocytosis Slight; RDW 15.5 % (11.5-15.5); WBC 13.8 k/uL (3.8-10.6)
[2024-07-10 09:09] LABS: African American GFR (CKD) >90 (>60 ml/min/1.73 sqM); Anion Gap 10 mmol/L; Blood Urea Nitrogen 11 mg/dL (7-17); Calcium 9.4 mg/dL (8.4-10.2); Carbon Dioxide 29 mmol/L (22-30); Chloride 100 mmol/L (98-107); Glucose 156 mg/dL (74-99); Non-African American GFR(CKD) >90 (>60 ml/min/1.73 sqM); Sodium 139 mmol/L (137-145)
[2024-07-10] MEDS: LOSARTAN 25 MG TAB PO SCH (09:36)
[2024-07-10] MEDS: BENZONATATE 100 MG CAP PO SCH (09:36)
--- NOTE | 2024-07-10 11:23 | P.PN ---
Subjective Progress Note Date: 07/10/24 Principal diagnosis: Status post CABG. This is a very pleasant 64-year-old female patient with a known history of hyperlipidemia, diabetes mellitus and strong family history of coronary artery disease as her father had coronary artery bypass surgery at 40 years old. She is a lifelong non-smoker. She had presented to [facility] and was found to have a non-ST segment elevation myocardial infarction. She had a cardiac catheterization done there revealing significant triple-vessel coronary artery disease. She was transferred here on June 29, 2024 for cardiothoracic evaluation. The plan is for revascularization surgery on July 04, 2024. Echocardiogram revealed preserved left ventricular systolic function with an ejection fraction 55 to 60%. Carotid Dopplers revealed no significant stenosis bilaterally. CT scan of the chest revealed no significant thoracic abnormalities. She is seen today in consult on the regular medical floor. She is currently sitting up in bed. Awake and alert in no acute distress. Denies any chest discomfort. No shortness of breath, cough or congestion. No palpitations, dizziness or lightheadedness. She is maintaining good O2 saturation in the mid 90s on room air. She is afebrile. Hemodynamically stable. White count 9.7. Hemoglobin 14.4. Platelets 403. Glucose 186. She remains on a heparin drip. She has been educated regarding the use of the incentive spirometer. The patient is seen today July 02, 2024 in follow-up on the regular medical floor. She is currently sitting up at the bedside. Awake and alert in no acute distress. Maintaining good O2 saturations in the 90s on room air. She denies any shortness of breath, cough or congestion. She denies any chest pain or palpitations. She is working well with the incentive spirometer. She remains on a heparin drip. Glucose 154. Remains on Levemir with a NovoLog sliding scale. The patient is seen today July 03, 2024 in follow-up on the regular medical floor. She is sitting up having breakfast. Awake and alert in no acute dis tress. Continues to maintain good O2 saturations in the 90s on room air. She continues to work with the incentive spirometer. Chest x-ray reveals no acute cardiopulmonary process. She denies any chest pain, palpitations or dizziness. White count 10.6. Hemoglobin 14.5. Platelets 503. INR 1.0. Sodium 141. Potassium 4.3. Bicarb 21. BUN 11. Creatinine 0.6. Glucose 122. She remains on a heparin drip. The patient is seen today July 04, 2024 in follow-up in the intensive care unit. She is just back from her surgery. She had undergone a coronary artery bypass grafting x 3 with a YIN to the LAD, saphenous vein graft to the OM 2 and PDA. Left atrial clipping. He is intubated on the mechanical ventilator currently on assist-control mode at a rate of 12, tidal volume 400, FiO2 100%, PEEP of 5. Blood gases revealed a PaO2 of 209, pCO2 49 and a pH of 7.30. She is sedated on propofol currently at 20 mcg/kg/min. Primacor at 0.1 mcg/kg/min. Insulin drip at 3 units/h. Nitroglycerin drip at 5 mcg/min. Normal saline at 50 mL/h. She is on heparin for DVT prophylaxis. Initiated on bronchodilators. Right IJ Valier-Jeanine catheter in place. Current cardiac output 5.9. Cardiac index 3.2. PA pressure 26/10. CVP 12. She has left and mediastinal chest tubes in place. Chest x-ray reveals new small to moderate right greater than left pleural effusions. Interstitial edema. No evidence of pneumothorax. White count 15.2. Hemoglobin 7.2. Platelets 219. INR 1.3. Sodium 138. Potassium 3.8. Bicarb 24. BUN 9. Creatinine 0.47. Glucose 139. The patient is seen today July 05, 2024 in follow-up in the intensive care unit. She is currently sitting up in a chair at the bedside. She is short of breath this morning. She is on 15 L high flow nasal cannula. Arterial blood gases revealed a PaO2 of 61, pCO2 of 39 and a pH of 7.37. The patient had some issues with low blood pressure through the night and was given albumin. She was initiated on dopamine at 2 mcg/kg/min. She is still on insulin at 7 units an hour. Normal saline at 50 mL/h. Chest x-ray shows bilateral pleural effusions/atelectasis. Cardiac output 5.5. Cardiac index 3.9. PA pressures 34 /10, CVP of 12. Glucose 140. White count 14.9. Hemoglobin 7.8. Platelets 372. INR 1.3. Sodium 137. Potassium 4.4. Bicarb 22. BUN 8. Creatinine 0.47. The patient is seen today July 06, 2024 in follow-up in the intensive care unit. She is awake and alert in no acute distress. Sitting up in a chair. She is is still requiring 12 L high flow nasal cannula to maintain O2 saturations in the 90s. She did utilize BiPAP most of the night at 10/5 and 60% FiO2. Chest x-ray shows persistent mild cardiomegaly with central vascular congestion and small bilateral pleural effusions consistent with fluid volume overload. She remains on normal saline at 30 mL/h. Insulin drip at 4 units/h. Left mediastinal chest tubes remain in place. Valier-Jeanine catheter in place. Cardiac output 6.7. Cardiac index 3.5. Pressure 29/17. CVP 7. White count 19.1. Hemoglobin 8.0. Platelets 300,000. Sodium 136. Potassium 4.1. Bicarb 18. BUN 12. Creatinine 0.9. Glucose 136. She is working well with the incentive spirometer. The patient is seen today July 07, 2024 in follow-up in the intensive care unit. She is awake and alert in no acute distress. Sitting up in a chair at the bedside. Maintaining good O2 saturations in the 90s on 7 L high flow nasal cannula. Chest x-ray continues to show bilateral atelectasis and effusions. She needs increased encouragement regarding the use the incentive spirometer. Only pulling approximately 500 mL. She is continued on DuoNeb inhalations. Heparin for DVT prophylaxis. Protonix for GI prophylaxis. She received Lasix 20 mg IVP x 1. Mediastinal chest tube was removed. Left pleural chest tube remains in place. She is status post 1 unit of packed red blood cells this admission. Current hemoglobin 8.3. Platelets 312. White count 18.5. Sodium 137. Potassium 4.1. Bicarb 20. BUN 17. Creatinine 0.6. Glucose 116. The patient is seen today July 08, 2024 in follow-up in the intensive care unit. She is awake and alert in no acute distress. Currently sitting up in a chair at the bedside. Denies any worsening shortness of breath, cough or congestion. She is maintaining saturations in the 90s on 2 L/min per nasal c annula. She is doing better with the incentive spirometer. Chest x-ray shows diminishing left apical pneumothorax. Improving bibasilar infiltrates. She is status post 1 unit of packed red blood cells this admission. Current hemoglobin 8.3. Platelets 366. Count 12.4. Sodium 137. Potassium 3.7. Bicarb 27. BUN 20. Creatinine 0.66. Glucose 151. She remains on DuoNeb and elations. Hepari n for DVT prophylaxis. Transitioned to Levemir and NovoLog sliding scale. Progress note dated July 09, 2024. The patient is seen today in room 351. The patient is doing relatively well. She is on 2 L of oxygen. She is not receiving any IV fluids. She does continue to work on her incentive spirometer. She denies any shortness of breath, cough, wheezing, chest tightness, or phlegm production. She also denies any chest pain or pressure. Current labs include a white count 11.1, hemoglobin 8.3, hematocrit 24.7, and a platelet count of 351,000. Sodium 141, potassium 3.8, chlorides 102, CO2 30, BUN 15, creatinine 0.59. Glucose 208. Calcium 8.4, magnesium 2.1. Chest x-ray shows postsurgical changes, mild pulmonary edema, and small bilateral pleural effusions. Progress note dated July 10, 2024. The patient is seen again in room 351. She is on room air. No IV fluids. The patient states that she may be discharged home tomorrow. She denies any chest pain or chest pressure. She denies any shortness of breath, cough, wheezing, chest tightness, or phlegm production. She continues to work on her incentive spirometer. White count 13.8, hemoglobin 9.5, hematocrit 28.7, platelet count 387,000. Sodium 139, potassium 4, chlorides 100, CO2 29, BUN 11, creatinine 0.64. Glucose 156. Calcium 9.4. Chest x-ray shows some postsurgical changes, with mild fluid overload, and small bilateral pleural effusions. Objective - Vital Signs Vital signs: Vital Signs Temp 98.6 F 07/10/24 08:45 Pulse 100 07/10/24 09:38 Resp 18 07/10/24 08:45 BP 139/78 07/10/24 08:45 Pulse Ox 94 L 07/10/24 09:29 FiO2 60 07/06/24 01:00 Intake & Output 07/09/24 07/10/24 07/10/24 18:59 06:59 18:59 Intake Total 2180 900 500 Output Total 2610 1951 401 Balance -430 -1051 99 Weight 82.5 kg Intake: IV 20 20 10 Invasive Line 8 20 20 10 Oral 2160 880 490 Output: Chest Tube Drainage 10 50 Chest Tube Left Pleural 10 50 Urine 2600 1900 400 Stool 1 1 Other: Voiding Method Toilet Toilet Toilet # Voids 10 1 # Bowel Movements 0 ABP, PAP, CO, CI - Last Documented Arterial Blood Pressure 121/70 Pulmonary Artery Pressure 40/23 Cardiac Output 6.7 Cardiac Index 3.5 - Exam No acute distress, oriented 3. No respiratory distress. Currently on room air. HEENT examination is grossly unremarkable. Mucous membranes are moist. No oral lesions. Neck supple. Full range of motion. No adenopathy thyromegaly or neck vein distention. Cardiovascular examination reveals regular rhythm rate. S1-S2 normal. No S3 or S4. No discernible murmur noted. Lungs reveal mostly clear breath sounds. Minimal scattered rhonchi. No wheezes or crackles. The patient coughs when she takes a deep breath. Abdomen soft bowel sounds are heard. No masses or tenderness. Extremities are intact. No cyanosis clubbing or edema. Skin is without rash or lesion. Neurologic examination is brief but nonfocal. - Labs CBC & Chem 7: 07/10/24 08:13 07/10/24 08:13 Labs: Abnormal Lab Results - Last 24 Hours (Table) 07/09/24 07/09/24 07/09/24 Range/Units 11:46 16:10 19:44 WBC (3.8-10.6) k/uL RBC (3.80-5.40) m/uL Hgb (11.4-16.0) gm/dL Hct (34.0-46.0) % Glucose (74-99) mg/dL POC Glucose (mg/dL) 208 H 147 H 146 H (70-110) mg/dL 07/10/24 07/10/24 07/10/24 Range/Units 06:27 08:13 08:13 WBC 13.8 H (3.8-10.6) k/uL RBC 3.30 L (3.80-5.40) m/uL Hgb 9.5 L (11.4-16.0) gm/dL Hct 28.7 L (34.0-46.0) % Glucose 156 H (74-99) mg/dL POC Glucose (mg/dL) 125 H (70-110) mg/dL Assessment and Plan Assessment: Acute non-ST elevation myocardial infarction and found to have significant triple-vessel coronary artery disease. Status post coronary artery bypass grafting x 3 with a YIN to the LAD, saphenous vein graft to the OM 2, PDA. Left atrial clipping. Postoperative day #6. Mechanical ventilator management, routine. Acute hypoxemic respiratory failure secondary to fluid volume overload, improved. Family history of early coronary artery disease with her father having bypass at the age of 40. Diabetes mellitus. Hyperlipidemia. Lifelong non-smoker. Plan: Plan dated July 09, 2024. The patient is seen today in room 351. She has been weaned down to 2 L of oxygen. She is not receiving any IV fluids. All tubes and lines, have been removed. Currently, the patient is doing well. She denies any chest pain or pressure, palpitations, fluttering, etc. She also denies any shortness of breath, cough, wheezing, chest tightness, or phlegm production. We will continue to follow make recommendations along the way. All labs and x-rays are reviewed. She continues on DVT and GI prophylaxis. We recommend ongoing use of the incentive spirometer, as well as deep breathing, coughing, clearing of secretions. 50 minutes was spent with this patient, which included obtaining the history, examining the patient, reviewing pertinent labs, x-rays, medications, as well as discussing the diagnosis, treatment, and prognosis, with the patient, and the patient's nursing staff. Dictation was produced using [employer] dictation software. Please excuse any grammatical, word or spelling errors. Plan dated July 10, 2024. The patient is seen today in room 351. She has been weaned off of oxygen. She is currently on room air. She denies any shortness of breath, cough, wheezing, chest tightness, or phlegm production. She also denies any chest pains or pressure. The patient is hoping to be discharged home tomorrow. She continues using the incentive spirometer on an hourly basis. We do also recommend deep b reathing, coughing, clearing of secretions. All labs, x-rays, and medications are reviewed. 50 minutes was spent with this patient, which included obtaining additional history, examining the patient, reviewing pertinent laboratory data, x-rays, medications, as well as discussing the diagnosis, treatment, and prognosis, with the patient, nursing staff, and others on the care team. Dictation was produced using [employer] dictation software. Please excuse any grammatical, word or spelling errors. Time with Patient: Greater than 30
[2024-07-10 11:55] LABS: Glucose,Whole Blood 195 mg/dL (70-110)
[2024-07-10 16:41] LABS: Glucose,Whole Blood 117 mg/dL (70-110)
[2024-07-10 20:01] LABS: Glucose,Whole Blood 128 mg/dL (70-110)
[2024-07-11 05:59] LABS: Glucose,Whole Blood 124 mg/dL (70-110)
[2024-07-11 06:17] LABS: HCT 31.2 % (34.0-46.0); HGB 10.4 gm/dL (11.4-16.0); Hypochromasia Slight; MCH 28.7 pg (25.0-35.0); MCHC 33.2 g/dL (31.0-37.0); MCV 86.5 fL (80.0-100.0); Mean Platelet Volume 6.8; Platelet Count 309 k/uL (150-450); Poikilocytosis Slight; RBC 3.61 m/uL (3.80-5.40); RDW 15.5 % (11.5-15.5); WBC 14.8 k/uL (3.8-10.6)
--- NOTE | 2024-07-11 06:53 | XR ---
EXAMINATION TYPE: XR chest 2V DATE OF EXAM: 07/11/2024 6:24 AM COMPARISON: 07/10/2024 CLINICAL INDICATION: Female, 64 years old with history of Postcardiac surgery, TECHNIQUE: XR chest 2V view(s) obtained. FINDINGS: The heart size is normal. The pulmonary vasculature is normal. There is some streak opacity at the left base. Correlate for atelectasis or pneumonia. Mild infiltrat e medially at the right base. Minimal right pleural effusion is likely present Left-sided chest tube has been removed. Minimal medial left apical pneumothorax may be present IMPRESSION: 1. Streak atelectasis versus pneumonia left base. 2. Mild subsegmental atelectasis may be at the right base. 3. Suspected small right pleural effusion. 4. Minimal left medial apical pneumothorax post chest tube removal [facility], , 07/11/2024 6:51 AM
[2024-07-11 06:54] LABS: African American GFR (CKD) >90 (>60 ml/min/1.73 sqM); Anion Gap 9 mmol/L; Blood Urea Nitrogen 14 mg/dL (7-17); Calcium 9.2 mg/dL (8.4-10.2); Carbon Dioxide 28 mmol/L (22-30); Chloride 100 mmol/L (98-107); Glucose 118 mg/dL (74-99); Magnesium 2.2 mg/dL (1.6-2.3); Non-African American GFR(CKD) >90 (>60 ml/min/1.73 sqM); Potassium 3.7 mmol/L (3.5-5.1); Sodium 137 mmol/L (137-145)
--- NOTE | 2024-07-11 07:26 | P.PN ---
Subjective Progress Note Date: 07/11/24 Principal diagnosis: Triple-vessel coronary artery disease, non-STEMI this admission. History of insulin-dependent diabetes uncontrolled with hyperglycemia, hyperlipidemia, lifelong non-smoker, family history of premature coronary artery disease, father had CABG at 40 years old POD #7 off-pump coronary artery bypass grafting 3 with YIN to LAD, SVG's to second obtuse marginal and posterior descending coronary arteries.Ligation of the left atrial appendage with 35 mm AtriCure clip, endoscopic vein harvest of the right greater saphenous vein, placement of Right femoral arterial line Postoperative acute blood loss anemia, expected given hemodilution Hypotension secondary to fluid shifting, resolved The patient was seen and examined this morning sitting up in a recliner in the cardiac stepdown unit in no acute distress. Currently sinus rhythm with heart rate in the 80s, blood pressure stable. Currently on room air with oxygen saturation in the low to mid 90s. States expected postsurgical pain is controlled with current medication regimen. Patient has been able to ambulate around the hallway without difficulty. X-ray, labs reviewed. Patient does have increasing white count, likely from atelectasis which is expected as she has not been taking deep breaths. She remains afebrile, cough is better this morning and has been dry. No other new concerns. Objective - Vital Signs Vital signs: Vital Signs Temp 98.6 F 07/10/24 20:57 Pulse 84 07/11/24 04:00 Resp 17 07/11/24 04:00 BP 134/76 07/11/24 04:00 Pulse Ox 91 L 07/11/24 04:00 FiO2 60 07/06/24 01:00 Intake & Output 07/10/24 07/11/24 07/11/24 18:59 06:59 18:59 Intake Total 732 20 Output Total 1702 1700 Balance -970 -1680 Weight 76.6 kg Intake: IV 20 20 Invasive Line 8 20 20 Oral 712 Output: Urine 1700 1700 Stool 2 Other: Voiding Method Toilet Toilet # Voids 3 2 # Bowel Movements 0 ABP, PAP, CO, CI - Last Documented Arterial Blood Pressure 121/70 Pulmonary Artery Pressure 40/23 Cardiac Output 6.7 Cardiac Index 3.5 - Exam CONSTITUTIONAL: Appears comfortable, cooperative, no acute distress RESPIRATORY: Lungs sounds diminished in the bases bilaterally. Respirations even, nonlabored. Currently on room air with oxygen saturation 93%. Able to achieve 1000 mL on incentive spirometry with somewhat better effort. Strong dry cough. CARDIOVASCULAR: S1, S2 present. Regular rate and rhythm, sinus rhythm on telemetry. Sternum stable. Palpable peripheral pulses bilaterally. No edema present. No calf pain or tenderness noted. Heart hugger in place with patient demonstrating appropriate use. Antiembolism stockings, SCDs present. GASTROINTESTINAL: Abdomen soft, nontender, nondistended. Active bowel sounds present 4 quadrants. Tolerating diet. Positive bowel movement 07/09 GENITOURINARY: Continues to void, output 3100 mL in the last 24 hours INTEGUMENTARY: Skin is warm and dry. Anterior chest incision well approximated and covered with dry intact dressing. Right lower extremity EVH site well approximated without redness or drainage. NEUROLOGIC: Cranial nerves II through XII intact MUSKULOSKELETAL: Able to move all extremities, strength equal bilaterally PSYCHIATRIC: Alert and oriented to person place and time, appropriate affect, intact judgment and insight - Allied health notes Allied health notes reviewed: nursing - Labs CBC & Chem 7: 07/11/24 05:53 07/11/24 05:53 Labs: Abnormal Lab Results - Last 24 Hours (Table) 07/10/24 07/10/24 07/10/24 Range/Units 08:13 08:13 11:54 WBC 13.8 H (3.8-10.6) k/uL RBC 3.30 L (3.80-5.40) m/uL Hgb 9.5 L (11.4-16.0) gm/dL Hct 28.7 L (34.0-46.0) % Glucose 156 H (74-99) mg/dL POC Glucose (mg/dL) 195 H (70-110) mg/dL 07/10/24 07/10/24 07/11/24 Range/Units 16:40 20:00 05:53 WBC 14.8 H (3.8-10.6) k/uL RBC 3.61 L (3.80-5.40) m/uL Hgb 10.4 L (11.4-16.0) gm/dL Hct 31.2 L (34.0-46.0) % Glucose (74-99) mg/dL POC Glucose (mg/dL) 117 H 128 H (70-110) mg/dL 07/11/24 07/11/24 Range/Units 05:53 05:57 WBC (3.8-10.6) k/uL RBC (3.80-5.40) m/uL Hgb (11.4-16.0) gm/dL Hct (34.0-46.0) % Glucose 118 H (74-99) mg/dL POC Glucose (mg/dL) 124 H (70-110) mg/dL - Imaging and Cardiology Chest x-ray: report reviewed, image reviewed Assessment and Plan Assessment: Triple-vessel coronary artery disease, non-STEMI this admission, status post three-vessel off-pump CABG Chest pain, shortness of breath secondary to above Postoperative acute blood loss anemia, expected given hemodilution Hypotension secondary to fluid shifting and anemia, improved with blood transfusion, resolved History of insulin-dependent diabetes with uncontrolled hyperglycemia, hemoglobin A1c 9.8% Hyperlipidemia, cholesterol 206, LDL 124, triglycerides 239 Lifelong non-smoker, preoperative FEV1 90% of predicted Family history of premature coronary artery disease, father had CABG at 40 years old Plan: Continue to maximize medical therapy with aspirin, statin, Plavix, beta-marcia. Will increase beta-marcia therapy as tolerated. Continue losartan added for afterload reduction Encourage incentive spirometry use 10 times every hour while awake. Bronchodil ators per pulmonology Increase activity as tolerated. PT/OT/cardiac rehab consulted Will monitor daily labs and x-rays. Electrolyte replacement per protocol. Continue IV lasix twice daily, will transition to oral upon discharge continue potassium supplementation GI/DVT prophylaxis Pain control per current medication regimen Insulin management per internal medicine Continue to monitor and record strict accurate intake and output Daily weights Shower daily starting today Discharge planning in progress, anticipate discharge to home with home care this afternoon More recommendations to follow based on patient's progress
[2024-07-11] MEDS: LOSARTAN 25 MG TAB PO SCH (09:21)
[2024-07-11] MEDS: POTASSIUM BICARBONATE/CIT AC 20 MEQ TABLET.EFF PO SCH (09:24)
[2024-07-11 10:32] VITALS: RESP 16; TEMP 97.9
[2024-07-11 11:52] LABS: Glucose,Whole Blood 144 mg/dL (70-110)
--- NOTE | 2024-07-11 12:36 | P.DS ---
Providers Date of admission: 06/29/24 13:54 Expected date of discharge: 07/11/24 Attending physician: Cy Samayoa Consults: 06/29/24 14:24 Consult Physician Routine Consulting Provider: Cy Samayoa Consult Reason/Comments: open heart Do you want consulting provider notified?: Yes Placement Type Exists?: Yes 06/30/24 07:25 Consult Physician Routine Consulting Provider: Teo Huerta Consult Reason/Comments: re: NSTEMI Do you want consulting provider notified?: Already Contacted 07/01/24 09:51 Consult Physician Routine Consulting Provider: Elieser Alberto Consult Reason/Comments: pulm clearance for open heart Do you want consulting provider notified?: Already Contacted 07/03/24 08:42 Consult to Anesthesia Routine Consulting Provider: Anesthesia,Services Consult Reason/Comments: Cardiac Surgery Pre-Op 07/04/24 13:08 Consult Physician Routine Consulting Provider: Pete Parker Consult Reason/Comments: insulin management Do you want consulting provider notified?: Already Contacted Primary care physician: Pete Parker Hospital Course: FINAL DIAGNOSIS: Triple-vessel coronary artery disease, non-STEMI this admission Chest pain, shortness of breath secondary to above Postoperative acute blood loss anemia, expected given hemodilution Hypotension secondary to fluid shifting and anemia, improved with blood transfusion, resolved History of insulin-dependent diabetes with uncontrolled hyperglycemia, hemoglobin A1c 9.8% Hyperlipidemia, cholesterol 206, LDL 124, triglycerides 239 Lifelong non-smoker, preoperative FEV1 90% of predicted Family history of premature coronary artery disease, father had CABG at 40 years old PRINCIPAL PROCEDURE: Off-pump coronary artery bypass grafting 3 with YIN to LAD, SVG's to second obtuse marginal and posterior descending coronary arteries Ligation of the left atrial appendage with 35 mm AtriCure clip Endoscopic vein harvest of the right greater saphenous vein Placement of Right femoral arterial line HISTORY OF PRESENT ILLNESS: This is a 64-year-old female who follows outpatient with Dr. Parker for primary care as well as an client solutions director for her diabetes. Apparently she had intermittent chest pressure for the last couple of months. She saw her client solutions director and, per the patient, was told that it was likely due to her changes in medications. Subsequently she developed shortness of breath, she presented to [facility] for evaluation and treatment. Troponins were elevated and she was ruled in for non-STEMI. She did have an echocardiogram completed demonstrating low normal left ventricular systolic function with EF 50%, mild mitral and tricuspid regurgitation as well as inferobasal hypokinesis. She was recommended to go undergo heart catheterization which was completed by Dr. Burroughs demonstrating proximal LAD stenosis 90%, proximal circumflex stenosis 70% with 90% stenosis after the OM1 and 100% stenosis after the OM 2, proximal RCA stenosis 80%, mid RCA stenosis 90%, distal RCA stenosis 100%. Due to these findings the patient was transferred to [facility] for cardiothoracic surgery consultation. She was seen by Dr. Samayoa and recommended to undergo coronary artery bypass surgery. The usual perioperative course was discussed in detail with the patient and her family, all risks and benefits were explained, all questions were answered, and consent was obtained to proceed with surgery. The patient was kept inpatient due to the nature of her disease process. HOSPITAL COURSE: The patient was brought to the preoperative area 07/04/24, prepared in the usual fashion, and subsequently taken to the operating room where Dr. Samayoa performed three-vessel off-pump CABG. Upon completion of surgery the patient was transferred to the cardiovascular intensive care unit where she was recovered and monitored hemodynamically. She was extubated, all lines, tubes, and drips were discontinued when appropriate, and she was transferred to 3 S. cardiac stepdown unit for further monitoring and rehabilitation. Her oxygen was titrated down, she continued to work with physical and occupational therapy, she was tolerating oral diet, her pain was controlled, and she was ready to be discharged to home with [facility] home care on postoperative day #7. She received written and verbal instruction regarding her medications, activity restrictions, signs and symptoms requiring physician notification, and follow-up appointments. Patient Condition at Discharge: Stable Plan - Discharge Summary Discharge Rx Participant: No New Discharge Prescriptions: New Albuterol Sulfate [Albuterol Sulfate Hfa] 2 puff PO Q6H #8.5 gm Aspirin 325 mg PO DAILY #30 tab Potassium Chloride ER [K-Dur 20] 20 meq PO BID #14 tab Furosemide [Lasix] 40 mg PO DAILY #7 tablet Sennosides-Docusate Sodium [Senokot-S] 2 each PO HS PRN tab PRN Reason: Constipation Losartan [Cozaar] 25 mg PO DAILY #30 tab Atorvastatin [Lipitor] 40 mg PO DAILY #30 tab Metoprolol Tartrate [Lopressor] 50 mg PO BID #60 tab Clopidogrel [Plavix] 75 mg PO DAILY #30 tab Pantoprazole [Protonix] 40 mg PO AC-BRKFST #30 tab Benzonatate [Tessalon Perles] 200 mg PO TID #90 cap Acetaminophen Tab [Tylenol] 1,000 mg PO Q6HR PRN tab PRN Reason: Fever And/ Or Mild Pain (1-3) Continue Cholecalciferol (Vitamin D3) [Decara (50,000 Iu)] 1,250 mcg PO SA Discontinued Atorvastatin [Lipitor] 80 mg PO DIRECTED Aspirin EC [Ecotrin Low Dose] 81 mg PO DIRECTED No Action Semaglutide [Ozempic] 0.25 mg SQ SA Insulin Glargine,Hum.rec.anlog [Lantus Solostar Pen] 10 units SQ HS Empagliflozin [Jardiance] 10 mg PO DAILY Discharge Medication List Cholecalciferol (Vitamin D3) [Decara (50,000 Iu)] 1,250 mcg PO SA 06/29/24 [History] Empagliflozin [Jardiance] 10 mg PO DAILY 06/29/24 [History] Insulin Glargine,Hum.rec.anlog [Lantus Solostar Pen] 10 units SQ HS 06/29/24 [History] Semaglutide [Ozempic] 0.25 mg SQ SA 06/29/24 [History] Acetaminophen Tab [Tylenol] 1,000 mg PO Q6HR PRN tab 07/11/24 [Rx] Albuterol Sulfate [Albuterol Sulfate Hfa] 2 puff PO Q6H #8.5 gm 07/11/24 [Rx] Aspirin 325 mg PO DAILY #30 tab 07/11/24 [Rx] Atorvastatin [Lipitor] 40 mg PO DAILY #30 tab 07/11/24 [Rx] Benzonatate [Tessalon Perles] 200 mg PO TID #90 cap 07/11/24 [Rx] Clopidogrel [Plavix] 75 mg PO DAILY #30 tab 07/11/24 [Rx] Furosemide [Lasix] 40 mg PO DAILY #7 tablet 07/11/24 [Rx] Losartan [Cozaar] 25 mg PO DAILY #30 tab 07/11/24 [Rx] Metoprolol Tartrate [Lopressor] 50 mg PO BID #60 tab 07/11/24 [Rx] Pantoprazole [Protonix] 40 mg PO AC-BRKFST #30 tab 07/11/24 [Rx] Potassium Chloride ER [K-Dur 20] 20 meq PO BID #14 tab 07/11/24 [Rx] Sennosides-Docusate Sodium [Senokot-S] 2 each PO HS PRN tab 07/11/24 [Rx] Follow up Appointment(s)/Referral(s): Elieser Alberto MD [STAFF PHYSICIAN] - 07/28/24 9:45 am Pete Parker MD [Primary Care Provider] - 07/15/24 1:20 pm (Office is requesting you show up for your appointment at 12:40 pm for paperwork) Rehab [facility] KUMAR,Cardiac [NON-STAFF] - 4 Weeks (You will receive a phone call in approximately 4-6 weeks for evaluation for cardiac rehab) Leo Burroughs DO [STAFF PHYSICIAN] - 07/26/24 7:45 am [facility] [NON-STAFF] - 07/12/24 (To be seen by RN the day after discharge, then 2-3 times per week until you start cardiac rehab. PT/OT may visit once, may continue to visit if necessary) Cy Samayoa MD [STAFF PHYSICIAN] - 08/04/24 2:00 pm Aidan Haskins NPC [Nurse Practitioner] - 07/15/24 12:00 pm (You will be seen in the surgeon's office behind the hospital in [facility], [address]. Office phone number is ) Ambulatory/Diagnostic Orders: Complete Blood Count w/diff [LAB.AMB] Time Frame: 3 Days, Location: None Selected Comprehensive Metabolic Panel [LAB.AMB] Time Frame: 3 Days, Location: None Selected Activity/Diet/Wound Care/Special Instructions: DISCHARGE INSTRUCTIONS: 1. No driving for 4 weeks, or until physician gives their ok. 2. The patient should sleep in their own bed, no medical bed needed. 3. Stairs are not an issue. If the bedroom is upstairs, it is advised that the patient go up at night and down in the morning for the first week. Go slowly, using handrail and take 1 step at a time. 4. MORELIA hose are to be worn for 30 days post surgery or until physician discontinues. 5. Heart hugger is to be worn 100% of the time until physician discontinues.(except when showering) 6. No lifting, pushing, or pulling more than 10 pounds for 12 weeks. The physician will advise of any restriction changes. 7. The patient is expected to continue the prescribed walking program. 8. Continue pain control per as needed orders. 9. Continue with incentive spirometry and splinting/heart hugger until otherwise directed by the physician. 10. Must shower daily using liquid antibacterial soap 11. Routine sternal incision care. No powders, lotions, ointments on incisions. No dressings are necessary on incisions unless they are draining. Dermabond tape is to remain on sternal incision until surgeon follow-up. 12. Please call surgeon/CORE CARRIER for temp greater than 101 F or purulent drainage from incisions. 13. You should weigh yourself daily, record and bring log with you to follow up appointments. 14. All prescriptions given by surgeon for 30 days. Refills need to be filled through electric frying pan repairer/primary care physician. 15. A Red armband has been placed on the patient. It should be worn for 30 days post discharge from surgery and will be removed by the cardiac surgeons. If an ER visit is necessary, please make sure the number on the Red armband is called before going to ER. 16. You have been referred to and are expected to begin Cardiac Rehab in approximately 4-6 weeks. 17. Quitting smoking is the most important step you can take to improve your health. For additional information and assistance to quit smoking, please call the [place] tobacco quit line (9-100-BLQW-NOW/ ) or online: https://www.[place].gov/[facility]/tnfk-tz-xqamzgf/chronicdiseases/tobacco/how-to-qu it-tobacco HOME HEALTH SERVICES TO PROVIDE: RN SKILLED HOME CARE SERVICES FOR POST-OP SURGICAL PATIENTS WITH THE FOLLOWING: Coronary Artery Bypass Surgery (CABG), Mitral Valve Replacement/Repair ( MVR), Aortic Valve Replacement/Repair (AVR) RN TO CONTINUE EDUCATION FROM ``ROAD TO A HEALTH HEART PATIENT EDUCATION MANUAL (GIVEN TO PATIENT IN THE HOSPITAL) MEDICATION RECONCILIATION WITH EDUCATION NEEDED ON FIRST HOME VISIT EMPHASIZE IMPORTANCE OF WEARING BREAST SUPPORT/HEART HUGGER ENCOURAGE USE OF INCENTIVE SPIROMETER 10 X EVERY HOUR WHILE AWAKE ENCOURAGE UTILIZATION OF LOWER EXTREMITY COMPRESSION STOCKINGS/MORELIA HOSE and ELEVATE LEGS ABOVE LEVEL OF HEART WHILE AT REST. ENCOURAGE AMBULATION 3-5x/day INCREASING TOLERATES, WHILE AVOIDING EXTREMES IN TEMPERATURE FREQUENCY: RN TO OPEN THE PATIENT WITHIN 24 HOURS OF DISCHARGE FROM THE HOSPITAL WITH TELEHEALTH INSTALLED AT [facility], RN TO VISIT 2-3 X A WEEK FOR 4 WEEKS ESTABLISHED BY PATIENT NEEDS. LABORATORY: CBC, CMP TO BE DRAWN ON THE THIRD DAY HOME, (RAN STAT) FAX RESULTS TO [phone]. TELEHEALTH PARAMETERS: WEIGHT: NOTIFY MD OF WEIGHT GAIN OF 2 LBS IN 24 HOURS OR 5 LBS IN ONE WEEK HR: NOTIFY MD OF HR <55 BPM OR HR>100 BPM BP: NOTIFY MD IF BP <90/55 OR BP>140/100 O2 SAT: NOTIFY MD IF PO2<93% ON ROOM AIR SEND TELEHEALTH REPORT TO INFRASTRUCTURE DIRECTOR AND CARDIOVASCULAR SURGEON THE FIRST WEEK OF CARE AND THEN BI-WEEKLY. PLEASE ADDITIONALLY COMMUNICATE ANY ABNORMALS AND NEW FINDINGS TO THE SURGEONS OFFICE. Discharge Disposition: HOME WITH HOME HEALTH SERVICES
[2024-07-11] MEDS: MD COMMUNICATION TO PHARMACY 1 EACH MISC PO ONE ×3 (12:43→12:44)
[2024-07-11] MEDS: PHENYLEPHRINE 10 MG/ML VIAL IV ONE (12:44)
[2024-07-11 12:46] VITALS: BP 112/74; PULSE 77
--- NOTE | 2024-07-11 13:20 | P.PN ---
Subjective HISTORY OF PRESENT ILLNESS: This is a 64-year-old female who is status post CABG. Patient examined this morning. She is sitting up in the chair. Patient denies chest pain or pressure. She denies shortness of breath. Vital signs are stable. She is anticipating discharge home later this afternoon. PHYSICAL EXAM: VITAL SIGNS: Reviewed. GENERAL: Well-developed in no acute distress. NECK: Supple. No JVD or thyromegaly LUNGS: Respirations even and unlabored. Lungs essentially clear to auscultation bilaterally. HEART: Regular rate and rhythm. S1 and S2 heard. EXTREMITIES: Normal range of motion. No clubbing or cyanosis. Peripheral pu lses intact. No lower extremity edema ASSESSMENT: Non-STEMI; triple-vessel coronary artery disease, status post CABG x 3 vessels History of hyperlipidemia History of diabetes Family history of premature coronary artery disease PLAN: Continue postoperative management per CT surgery Continue current cardiac medications Increase activity as tolerated Encourage use of incentive spirometer Patient may be discharged home today from a cardiac standpoint Patient to follow-up postdischarge with Dr. Burroughs Nurse practitioner note has been reviewed by physician. Signing provider agrees with the documented findings, assessment, and plan of care documented by BIZTALK ARCHITECT as a scribe. Objective - Vital Signs Vital signs: Vital Signs Temp 97.9 F 07/11/24 09:05 Pulse 80 07/11/24 12:01 Resp 16 07/11/24 11:40 BP 112/74 07/11/24 11:40 Pulse Ox 95 07/11/24 11:40 FiO2 60 07/06/24 01:00 Intake & Output 07/10/24 07/11/24 07/11/24 18:59 06:59 18:59 Intake Total 144 27 3123 Output Total 1702 1700 301 Balance -970 -1680 1339 Weight 76.6 kg Intake: IV 20 20 Invasive Line 8 20 20 Oral 712 1640 Output: Urine 1700 1700 300 Stool 2 1 Other: Voiding Method Toilet Toilet Toilet # Voids 3 2 # Bowel Movements 0 0 ABP, PAP, CO, CI - Last Documented Arterial Blood Pressure 121/70 Pulmonary Artery Pressure 40/23 Cardiac Output 6.7 Cardiac Index 3.5 - Labs CBC & Chem 7: 07/11/24 05:53 07/11/24 05:53 Labs: Abnormal Lab Results - Last 24 Hours (Table) 07/10/24 07/10/24 07/11/24 Range/Units 16:40 20:00 05:53 WBC 14.8 H (3.8-10.6) k/uL RBC 3.61 L (3.80-5.40) m/uL Hgb 10.4 L (11.4-16.0) gm/dL Hct 31.2 L (34.0-46.0) % Glucose (74-99) mg/dL POC Glucose (mg/dL) 117 H 128 H (70-110) mg/dL 07/11/24 07/11/24 07/11/24 Range/Units 05:53 05:57 11:51 WBC (3.8-10.6) k/uL RBC (3.80-5.40) m/uL Hgb (11.4-16.0) gm/dL Hct (34.0-46.0) % Glucose 118 H (74-99) mg/dL POC Glucose (mg/dL) 124 H 144 H (70-110) mg/dL
--- NOTE | 2024-07-11 17:04 | P.PN ---
Subjective Progress Note Date: 07/11/24 This is a very pleasant 64-year-old female patient with a known history of hyperlipidemia, diabetes mellitus and strong family history of coronary artery disease as her father had coronary artery bypass surgery at 40 years old. She is a lifelong non-smoker. She had presented to [facility] and was found to have a non-ST segment elevation myocardial infarction. She had a cardiac catheterization done there revealing significant triple-vessel coronary artery disease. She was transferred here on June 29, 2024 for cardiothoracic evaluation. The plan is for revascularization surgery on July 04, 2024. Echocardiogram revealed preserved left ventricular systolic function with an ejection fraction 55 to 60%. Carotid Dopplers revealed no significant stenosis bilaterally. CT scan of the chest revealed no significant thoracic abnormalities. She is seen today in consult on the regular medical floor. She is currently sitting up in bed. Awake and alert in no acute distress. Denies any chest discomfort. No shortness of breath, cough or congestion. No palpitations, dizziness or lightheadedness. She is maintaining good O2 saturation in the mid 90s on room air. She is afebrile. Hemodynamically stable. White count 9.7. Hemoglobin 14.4. Platelets 403. Glucose 186. She remains on a heparin drip. She has been educated regarding the use of the incentive spirometer. The patient is seen today July 02, 2024 in follow-up on the regular medical floor. She is currently sitting up at the bedside. Awake and alert in no acute distress. Maintaining good O2 saturations in the 90s on room air. She denies any shortness of breath, cough or congestion. She denies any chest pain or palpitations. She is working well with the incentive spirometer. She remains on a heparin drip. Glucose 154. Remains on Levemir with a NovoLog sliding scale. The patient is seen today July 03, 2024 in follow-up on the regular medical floor. She is sitting up having breakfast. Awake and alert in no acute distress. Continues to maintain good O2 saturations in the 90s on room air. She continues to work with the incentive spirometer. Chest x-ray reveals no acute cardiopulmonary process. She denies any chest pain, palpitations or dizziness. White count 10.6. Hemoglobin 14.5. Platelets 503. INR 1.0. Sodium 141. Potassium 4.3. Bicarb 21. BUN 11. Creatinine 0.6. Glucose 122. She remains on a heparin drip. The patient is seen today July 04, 2024 in follow-up in the intensive care unit. She is just back from her surgery. She had undergone a coronary artery bypass grafting x 3 with a YIN to the LAD, saphenous vein graft to the OM 2 and PDA. Left atrial clipping. He is intubated on the mechanical ventilator currently on assist-control mode at a rate of 12, tidal volume 400, FiO2 100%, PEEP of 5. Blood gases revealed a PaO2 of 209, pCO2 49 and a pH of 7.30. She is sedated on propofol currently at 20 mcg/kg/min. Primacor at 0.1 mcg/kg/min. Insulin drip at 3 units/h. Nitroglycerin drip at 5 mcg/min. Normal saline at 50 mL/h. She is on heparin for DVT prophylaxis. Initiated on bronchodilators. Right IJ Jenkins-Jeanine catheter in place. Current cardiac output 5.9. Cardiac index 3.2. PA pressure 26/10. CVP 12. She has left and mediastinal chest tubes in place. Chest x-ray reveals new small to moderate right greater than left pleural effusions. Interstitial edema. No evidence of pneumothorax. White count 15.2. Hemoglobin 7.2. Platelets 219. INR 1.3. Sodium 138. Potassium 3.8. Bicarb 24. BUN 9. Creatinine 0.47. Glucose 139. The patient is seen today July 05, 2024 in follow-up in the intensive care unit. She is currently sitting up in a chair at the bedside. She is short of breath this morning. She is on 15 L high flow nasal cannula. Arterial blood gases revealed a PaO2 of 61, pCO2 of 39 and a pH of 7.37. The patient had some issues with low blood pressure through the night and was given albumin. She was initiated on dopamine at 2 mcg/kg/min. She is still on insulin at 7 units an hour. Normal saline at 50 mL/h. Chest x-ray shows bilateral pleural effusions/atelectasis. Cardiac output 5.5. Cardiac index 3.9. PA pressures 34/10, CVP of 12. Glucose 140. White count 14.9. Hemoglobin 7.8. Platelets 372. INR 1.3. Sodium 137. Potassium 4.4. Bicarb 22. BUN 8. Creatinine 0.47. The patient is seen today July 06, 2024 in follow-up in the intensive care unit. She is awake and alert in no acute distress. Sitting up in a chair. She is is still requiring 12 L high flow nasal cannula to maintain O2 saturations in the 90s. She did utilize BiPAP most of the night at 10/5 and 60% FiO2. Chest x-ray shows persistent mild cardiomegaly with central vascular congestion and small bilateral pleural effusions consistent with fluid volume overload. She remains on normal saline at 30 mL/h. Insulin drip at 4 units/h. Left mediastinal chest tubes remain in place. Jenkins-Jeanine catheter in place. Cardiac output 6.7. Cardiac index 3.5. Pressure 29/17. CVP 7. White count 19.1. Hemoglobin 8.0. Platelets 300,000. Sodium 136. Potassium 4.1. Bicarb 18. BUN 12. Creatinine 0.9. Glucose 136. She is working well with the incentive spirometer. The patient is seen today July 07, 2024 in follow-up in the intensive care unit. She is awake and alert in no acute distress. Sitting up in a chair at the bedside. Maintaining good O2 saturations in the 90s on 7 L high flow nasal cannula. Chest x-ray continues to show bilateral atelectasis and effusions. She needs increased encouragement regarding the use the incentive spirometer. Only pulling approximately 500 mL. She is continued on DuoNeb inhalations. Heparin for DVT prophylaxis. Protonix for GI prophylaxis. She received Lasix 20 mg IVP x 1. Mediastinal chest tube was removed. Left pleural chest tube rem ains in place. She is status post 1 unit of packed red blood cells this admission. Current hemoglobin 8.3. Platelets 312. White count 18.5. Sodium 137. Potassium 4.1. Bicarb 20. BUN 17. Creatinine 0.6. Glucose 116. The patient is seen today July 08, 2024 in follow-up in the intensive care unit. She is awake and alert in no acute distress. Currently sitting up in a chair at the bedside. Denies any worsening shortness of breath, cough or congestion. She is maintaining saturations in the 90s on 2 L/min per nasal cannula. She is doing better with the incentive spirometer. Chest x-ray shows diminishing left apical pneumothorax. Improving bibasilar infiltrates. She is status post 1 unit of packed red blood cells this admission. Current hemoglobin 8.3. Platelets 366. Count 12.4. Sodium 137. Potassium 3.7. Bicarb 27. BUN 20. Creatinine 0.66. Glucose 151. She remains on DuoNeb and elations. Heparin for DVT prophylaxis. Transitioned to Levemir and NovoLog sliding scale. Progress note dated July 09, 2024. The patient is seen today in room 351. The patient is doing relatively well. She is on 2 L of oxygen. She is not receiving any IV fluids. She does continue to work on her incentive spirometer. She denies any shortness of breath, cough, wheezing, chest tightness, or phlegm production. She also denies any chest pain or pressure. Current labs include a white count 11.1, hemoglobin 8.3, hematocrit 24.7, and a platelet count of 351,000. Sodium 141, potassium 3.8, chlorides 102, CO2 30, BUN 15, creatinine 0.59. Glucose 208. Calcium 8.4, m agnesium 2.1. Chest x-ray shows postsurgical changes, mild pulmonary edema, and small bilateral pleural effusions. Progress note dated July 10, 2024. The patient is seen again in room 351. She is on room air. No IV fluids. The patient states that she may be discharged home tomorrow. She denies any chest pain or chest pressure. She denies any shortness of breath, cough, wheezing, chest tightness, or phlegm production. She continues to work on her incentive spirometer. White count 13.8, hemoglobin 9.5, hematocrit 28.7, platelet count 387,000. Sodium 139, potassium 4, chlorides 100, CO2 29, BUN 11, creatinine 0.64. Glucose 156. Calcium 9.4. Chest x-ray shows some postsurgical changes, with mild fluid overload, and small bilateral pleural effusions. 07/11/2024, the patient is doing well. The patient is currently on room air oxygen. Follow-up chest x-ray within the patient showed some atelectatic changes in lung bases bilaterally. Noted the patient has undergone three-vessel bypass surgery and she continues to recover reasonably well. She is using the incentive spirometer. Cardiac rhythm is sinus. No other significant events over the past 24 hours. No chest pain. The patient has a postoperative blood loss anemia which is an expected outcome of surgery. No hypotension. No hemodynamic instability. The patient is postop day #7. Blood work from today shows a white cell count of 14 with him of 10.4 and a platelet count of 309. BUN is 40 with a creatinine of 0.6 and a sodium levels at 137. The patient is currently on aspirin 325 mg p.o. daily, Plavix 75 mg p.o. daily, metoprolol 50 mg twice a day. The patient is also on Cozaar 25 mg p.o. daily. Jardiance 10 mg p.o. daily and Lantus insulin 10 units at bedtime and the patient will continue Ozempic on outpatient basis. She is also on statins 40 mg p.o. daily. Objective - Vital Signs Vital signs: Vital Signs Temp 97.9 F 07/11/24 09:05 Pulse 80 07/11/24 12:01 Resp 16 07/11/24 11:40 BP 112/74 07/11/24 11:40 Pulse Ox 95 07/11/24 11:40 FiO2 60 07/06/24 01:00 Intake & Output 07/10/24 07/11/24 07/11/24 18:59 06:59 18:59 Intake Total 686 06 7793 Output Total 1702 1700 301 Balance -970 -1680 1339 Weight 76.6 kg Intake: IV 20 20 Invasive Line 8 20 20 Oral 712 1640 Output: Urine 1700 1700 300 Stool 2 1 Other: Voiding Method Toilet Toilet Toilet # Voids 3 2 # Bowel Movements 0 0 ABP, PAP, CO, CI - Last Documented Arterial Blood Pressure 121/70 Pulmonary Artery Pressure 40/23 Cardiac Output 6.7 Cardiac Index 3.5 - Exam No acute distress, oriented 3. No respiratory distress. Currently on room air. HEENT examination is grossly unremarkable. Mucous membranes are moist. No oral lesions. Neck supple. Full range of motion. No adenopathy thyromegaly or neck vein distention. Cardiovascular examination reveals regular rhythm rate. S1-S2 normal. No S3 or S4. No discernible murmur noted. Lungs reveal mostly clear breath sounds. Minimal scattered rhonchi. No wheezes or crackles. Thoracotomy scar is dry clean and intact Abdomen soft bowel sounds are heard. No masses or tenderness. Extremities are intact. No cyanosis clubbing or edema. Skin is without rash or lesion. Neurologic examination is brief but nonfocal. - Labs CBC & Chem 7: 07/11/24 05:53 07/11/24 05:53 Labs: Abnormal Lab Results - Last 24 Hours (Table) 07/10/24 07/10/24 07/11/24 Range/Units 16:40 20:00 05:53 WBC 14.8 H (3.8-10.6) k/uL RBC 3.61 L (3.80-5.40) m/uL Hgb 10.4 L (11.4-16.0) gm/dL Hct 31.2 L (34.0-46.0) % Glucose (74-99) mg/dL POC Glucose (mg/dL) 117 H 128 H (70-110) mg/dL 07/11/24 07/11/24 07/11/24 Range/Units 05:53 05:57 11:51 WBC (3.8-10.6) k/uL RBC (3.80-5.40) m/uL Hgb (11.4-16.0) gm/dL Hct (34.0-46.0) % Glucose 118 H (74-99) mg/dL POC Glucose (mg/dL) 124 H 144 H (70-110) mg/dL Assessment and Plan Plan: Acute non-ST elevation myocardial infarction and found to have significant triple-vessel coronary artery disease. Status post coronary artery bypass grafting x 3 with a YIN to the LAD, saphenous vein graft to the OM 2, PDA. Left atrial clipping. Postoperative day # 7. Postthoracotomy, extubated and patient is currently on room air oxygen. The patient continues to have some atelectatic changes in lung base bilaterally. Acute hypoxemic respiratory failure secondary to fluid volume overload, improved. Patient is currently on room air oxygen. Family history of early coronary artery disease with her father having bypass at the age of 40. Diabetes mellitus. Hyperlipidemia. Lifelong non-smoker. Blood loss anemia, expected outcome of surgery, hemoglobin stable at 10.4. Plan: The patient is to be discharged home today. Continues incentive spirometer Continue aspirin and Plavix Continue metoprolol Continue Cozaar for blood pressure control Continue combination of Jardiance and Ozempic for blood sugar control. No active pulmonary issues for now. The patient is to be discharged to be followed up in the office in few weeks time.
--- NOTE | 2024-07-13 00:35 | PN ---
PROGRESS NOTE DATE OF SERVICE: 07/10/2024 CHIEF COMPLAINT: Diabetes mellitus and status post triple-vessel CABG. HISTORY OF PRESENT ILLNESS: This lady is doing well. Her blood sugars are starting to drop into a slightly lower range. She is doing well. She is not having any significant shortness of breath. PHYSICAL EXAMINATION: GENERAL: Color is good. CHEST: Clear. CARDIAC: Normal. ABDOMEN: Soft. IMPRESSION: 1. Status post coronary artery bypass graft for triple-vessel coronary artery disease. 2. Poorly controlled diabetes mellitus. PLAN: Progress activity and she will probably go home soon. MMODL / IJN: [id number] /
--- NOTE | 2024-07-13 01:05 | PN ---
PROGRESS NOTE DATE OF SERVICE: 07/11/2024 CHIEF COMPLAINT: Status post CABG. HISTORY OF PRESENT ILLNESS: This lady is doing well and is expected to go home today. PHYSICAL EXAMINATION: VITAL SIGNS: She is afebrile. CHEST: Clear. CARDIAC: Normal. ABDOMEN: Soft. IMPRESSION: 1. Status post coronary artery bypass graft. 2. Diabetes mellitus. PLAN: Home today. MMODL / IJN: [id number] /
== END 2024-07-11 14:49 | disposition home health service (06) | DRG 235 ==
LOC: 6NMEDSUR 13:54 → 2SICU 07-04 09:47 → 3SCARD 07-08 13:22
PROVIDERS: ADMIT Thoracic Surgery (Cardiothoracic Vascular Surgery); ATTEND Thoracic Surgery (Cardiothoracic Vascular Surgery)
PROC: 02L70CK Occlusion of Left Atrial Appendage with Extraluminal Device, Open Approach (ICD-10-PCS; 2024-07-04)
PROC: 5A1221Z Performance of Cardiac Output, Continuous (ICD-10-PCS; 2024-07-04)
PROC: B246ZZ4 Ultrasonography of Right and Left Heart, Transesophageal (ICD-10-PCS; 2024-07-04)
PROC: 4A133J1 Monitoring of Arterial Pulse, Peripheral, Percutaneous Approach (ICD-10-PCS; 2024-07-04)
PROC: 03HY32Z Insertion of Monitoring Device into Upper Artery, Percutaneous Approach (ICD-10-PCS; 2024-07-04)
PROC: 02HV33Z Insertion of Infusion Device into Superior Vena Cava, Percutaneous Approach (ICD-10-PCS; 2024-07-04)
PROC: 4A133B1 Monitoring of Arterial Pressure, Peripheral, Percutaneous Approach (ICD-10-PCS; 2024-07-04)
PROC: B5181ZA Fluoroscopy of Superior Vena Cava using Low Osmolar Contrast, Guidance (ICD-10-PCS; 2024-07-04)
PROC: B548ZZA Ultrasonography of Superior Vena Cava, Guidance (ICD-10-PCS; 2024-07-04)
PROC: 021109W Bypass Coronary Artery, Two Arteries from Aorta with Autologous Venous Tissue, Open Approach (ICD-10-PCS; principal; 2024-07-04 08:00)
PROC: 02100Z9 Bypass Coronary Artery, One Artery from Left Internal Mammary, Open Approach (ICD-10-PCS; 2024-07-04 08:00)
PROC: 0JH63VZ Insertion of Infusion Pump into Chest Subcutaneous Tissue and Fascia, Percutaneous Approach (ICD-10-PCS; 2024-07-04 08:00)
PROC: 30233N1 Transfusion of Nonautologous Red Blood Cells into Peripheral Vein, Percutaneous Approach (ICD-10-PCS; 2024-07-05)
DX: I21.4 Non-ST elevation (NSTEMI) myocardial infarction (principal); J96.01 Acute respiratory failure with hypoxia; J93.83 Other pneumothorax; E11.65 Type 2 diabetes mellitus with hyperglycemia; E66.9 Obesity, unspecified; I10 Essential (primary) hypertension; D62 Acute posthemorrhagic anemia; Z79.4 Long term (current) use of insulin; E87.70 Fluid overload, unspecified; I25.10 Atherosclerotic heart disease of native coronary artery without angina pectoris; I25.2 Old myocardial infarction; R00.0 Tachycardia, unspecified; I95.89 Other hypotension; E78.5 Hyperlipidemia, unspecified; Z79.02 Long term (current) use of antithrombotics/antiplatelets; Z79.82 Long term (current) use of aspirin; Z79.84 Long term (current) use of oral hypoglycemic drugs; Z82.49 Family history of ischemic heart disease and other diseases of the circulatory system; Z86.16 Personal history of COVID-19
CPT/HCPCS: 71045; 71046; 71250; 80048; 80053; 80061; 80074; 81003; 82272; 82330; 82805; 83036; 83695; 83735; 84443; 85025; 85027; 85610; 85730; 86850; 86900; 86901; 86920; 87070; 93306; 93880; 93970; 94002; 94150; 94640; 94660; 94760

== ENCOUNTER → 2024-07-29 | Outpatient (CLI) | payer BC ==
[2024-07-29 15:33] LABS: ALT 22 U/L (8-44); AST 20 U/L (13-35); Chol/HDL Ratio 3.57 Ratio
== END | disposition home or self-care (01) ==
LOC: LABWHC1 09:08
PROVIDERS: ATTEND Internal Medicine
DX: E78.2 Mixed hyperlipidemia (principal)
CPT/HCPCS: 36415; 80061; 84450; 84460